=== PATIENT | female | born 1970 | race Two or more races ===

== ENCOUNTER 2020-05-25 13:00 | Outpatient (RCR) | payer OTHER, SELFPAY ==
--- NOTE | 2020-05-25 14:46 | MHC.PT.OD ---
[facility] [place] [facility] [place] [facility] [place] [facility] [address] Marcellus Mackenzie [address] [phone] F: [phone] F: [phone] F: [phone] F: [phone] Physical Therapy Daily Note Diagnosis: LEFT SHOULDER PAIN Date of Surgery: Date of Evaluation: 04/20/20 Treatments to Date: 8 Cancellations to Date: No Shows to Date: Authorized Visits: 12 Insurance End Date: Precautions/ Contraindications: Subjective: PATIENT REPORTS HAVING INCREASED PAIN TO LEFT SHOULDER AND POOR ABILITY TO SLEEP ON LEFT SIDE. PATIENT REPORTS PAIN HAS INCREASED AND SHE HAS BEEN HAVING MORE DIFFICULTY WITH OUTSTRETCHED UE PATTERNS. PATIENT REPORT SHOOTING AND BURNING PAIN TO LEFT UPPER TRAPEZIUS AND LEFT MEDIAL SCAPULA THAT HAS PROGRESSIVELY INCREASED. PATIENT REPORTS NOTICEABLE WEAKNESS TO LEFT UE. Pain Score: 8 Pain Location: LE SUPERIOR AND POSTERIOR SHOULDER GIRDLE Objective Flowsheet: Tests & Measures POSITIVE EMPTYY CAN TEST ON LEFT, PAINFUL ARC > 60 DEGREES, LEFT SCAPULAR WINGING TTP SUPRASPINATUS ON LEFT, MEDIAL SCAPULAR BORDER LEFT SHOULDER AROM: FLEXION 156 ABDUCTION 162, ER 56 IR 48 RIGHT WFL SHOULDER MMT: FLEXION LEFT: 4-/5 RIGHT : 4/5 ABDUCTION LEFT: 3+/5 RIGHT 4/5 ER LEFT: 3/5 RIGHT 4/5 IR LEFT 4/5 RIGHT 5/5 Assessment: PATIENT DOES PRESENT WITH ANTERIOR SHOULDER PAIN AND ANTERIOR INSTABILITY WITH AWAY FROM MIDLINE UE POSITION. PATIENT MAY BENEFIT FROM REFERRAL TO [facility] TO RULE OUT LABRAL PATHOLOGY AND RTC INJURY. PATIENT DISCHARGED DUE TO PLATEAU. PATIENT INDEPENDENT WITH HEP. PT Plan: DISCHARGE PATIENT AND REFER TO PHYSICIAN FOR ALTERNATIVE TX. Discharge Today? Yes Short Term Goals: 1. REDUCE PAIN AT WORST TO 5/10 (NOT MET) 2. PATIENT WILL BE INDEPENDENT WITH HEP (MET) 3. PATIENT WILL PRESENT WITH SAFE LIFTING AND CARRYING TECHNIQUES (MET) Prison Goals: 1. FULL AROM NOT LIMITED BY PAIN (NOT MET) 2. ABILITY TO SLEEP ON LEFT SHOULDER (NOT MET) 3. PATIENT WILL BE ABLE TO LIFT AND CARRY > 10 LBS WITHOUT PAIN (NOT MET) 4. INCREASE 1 MM GRADE TO SHOULDER GIRDLE TO ASSIST WITH ADL'S (NOT MET)
== END 2020-06-16 08:40 | disposition other institution (70) ==
LOC: HO.PTWFD 13:00
PROVIDERS: PCP Internal Medicine; Visit Provider Student in an Organized Health Care Education/Training Program
DX: M67.912 Unspecified disorder of synovium and tendon, left shoulder (principal)
CPT/HCPCS: 97110; 97140; 97164

== ENCOUNTER 2020-07-01 08:54 | Outpatient (REF) | payer OTHER, SELFPAY ==
[2020-07-02 02:28] LABS: CT PCR NOT DETECTED (Not Detect.); NG PCR NOT DETECTED (Not Detect.)
[2020-07-02 11:19] LABS: BV Int Neg Control Negative (Negative); BV Int Pos Control Positive (Positive)
== END 2020-07-01 08:55 | disposition home or self-care (01) ==
LOC: HO.LAB 08:54
PROVIDERS: Visit Provider Advanced Practice Midwife
DX: Z01.419 Encounter for gynecological examination (general) (routine) without abnormal findings (principal); N89.8 Other specified noninflammatory disorders of vagina; N39.3 Stress incontinence (female) (male)
CPT/HCPCS: 87480; 87491; 87510; 87591; 87660

== ENCOUNTER 2020-09-03 00:08 | Emergency (ER) | payer OTHER, SELFPAY ==
[2020-09-03 00:31] VITALS: BP 150/83; PULSE 80; RESP 18; TEMP 37.6; O2SAT 95; BMI 30.2
[2020-09-03 00:35] VITALS: TEMP 37.6; O2SAT 95
--- NOTE | 2020-09-03 01:06 | ED_ITS ---
HPI - URI/Sore Throat General Chief Complaint: Upper Respiratory Symptoms Stated Complaint: SORE THROAT Time Seen by Provider: 09/03/20 00:43 Source: patient Mode of arrival: ambulatory Limitations: no limitations History of Present Illness HPI Narrative: Patient comes emergency room complaining of a sore throat patient denies fever or chills. Patient also complaining of diffuse body aches. Patient took ibuprofen prior to arrival. Her has the same symptoms. Patient denies chest pain or shortness of breath, no coughing, no GI symptoms Related Data Home Medications Medication Instructions Recorded Confirmed gabapentin 400 mg capsule 400 mg PO TID 05/31/20 05/31/20 meloxicam 15 mg tablet 15 mg PO DAILY 05/31/20 05/31/20 omeprazole 40 mg capsule,delayed 40 mg PO DAILY 05/31/20 05/31/20 release propranolol 80 mg capsule,24 80 mg PO DAILY 05/31/20 05/31/20 hr,extended release Previous Rx's Medication Instructions Recorded atorvastatin 10 mg tablet 10 mg PO BEDTIME 90 Days #90 tab 05/31/20 metronidazole 0.75 % vaginal gel 1 appful VAGINAL BEDTIME 5 Days 07/04/20 #70 g tramadol 50 mg tablet 50 mg PO Q8H #90 tab 07/19/20 Allergies Allergy/AdvReac Type Severity Reaction Status Date / Time trazodone [TRAZODONE] Allergy Intermediate TACHYCARDIA Verified 07/01/20 09:07 Review of Systems Review of Systems: Constitutional : No Weight loss, No Fever, No Chills, No Night Sweats, complaining of fatigue and generalized malaise ENT/Mouth : No Hearing loss, No Ear Pain, No Nasal Congestion, No Sinus Pain, No Hoarseness, complaining of sore throat, No Rhinorrhea, No Swallowing Difficulty Eyes: No Eye Pain, No Swelling, No Redness, No Foreign Body, No Discharge, No Vision Changes Cardiovascular : No Chest Pain, No SOB, No Dyspnea on Exertion, No Orthopnea, No Edema, No Palpitations Respiratory : No Cough, No Sputum, No Wheezing, No Smoke Exposure, No Dyspnea Gastrointestinal : No Nausea, No Vomiting, No Diarrhea, No Constipation, No abdominal Pain, No Hematochezia, No Melena Genitourinary : no irregular bleeding, No Dysuria, No Urinary Frequency, No Hematuria, No Urinary Incontinence, No Urgency, No Flank Pain, No Urinary Flow Changes, No Hesitancy Musculoskeletal : No joint pain, complaining of Myalgias, No Joint Swelling Skin : No Skin Lesions, No rash Neuro : No Weakness, No Numbness, No Paresthesias, No Loss of Consciousness, No Dizziness, No Headache Psych : No Anxiety/Panic, No Depression, No SI/HI/AH/VH, No Social Issues, Heme/Lymph: No Bruising, No Bleeding,No Lymphadenopathy Endocrine : No Polyuria, No Polydipsia, No Temperature Intolerance [facility] Past Medical History Medical History Class 1 obesity due to excess calories without serious comorbidity with body mass index (BMI) of 30.0 to 30.9 in adult Fibromyalgia GERD (gastroesophageal reflux disease) Left shoulder pain Pure hypercholesterolemia Surgical History History of laparoscopic cholecystectomy Family History Family History Father No problems noted. Mother HX: breast cancer Hypertension Hypercholesterolemia Maternal Grandmother Hypertension Diabetes Social History Social History Alcohol intake: never Smoking Status: Never smoker Smoked in Last 30 Days: No Advance Directives: No Advance Directives Information Provided: No Gender identity: female Physical Exam Vital Signs: Vital Signs: Last Vital Signs Temp 99.7 F 09/03/20 00:35 Pulse 80 09/03/20 00:31 Resp 18 09/03/20 00:31 BP 150/83 H 09/03/20 00:31 Pulse Ox 95 09/03/20 00:35 Body Mass Index 30.2 Appearance: Alert. Oriented X3. No acute distress. Eyes: Pupils equal, round and reactive to light. ENT: Erythematous oropharynx with no exudates, no abscesses and tonsils Neck: Normal inspection. Neck supple. No lymph nodes noted. No crepitus CVS: Normal heart rate and rhythm. Pulses normal. Normal S1 and S2 Respiratory: No respiratory distress. Breath sounds normal. No Wheezing. No rales Abdomen: Soft and nontender. No rigidity. No distention. good BS x4 Skin: Skin warm and dry. Normal skin color. Normal skin turgor. Extremities: No lower extremity edema. No lower extremity edema. No Lacerations. No Rash Neuro: Oriented X 3. No motor deficit. No sensory deficit. Moving all extermities. No slurred speech. Course Course Course Narrative: Patient was tested for COVID-19/RSV/influenza, results pending. Patient's COVID-19 results are positive. Patient instructed to get her children tested as well. She will self isolate for 14 days. Patient's tested positive as well. Patient's oxygen saturation remains at 96% on room air and during/after walking as well. MDM - URI/Sore Throat Lab Data Labs: Lab Results 09/03/20 Range/Units 01:55 Coronavirus (PCR) POSITIVE A (Negative) Influenza Type A (PCR) NEGATIVE (Negative) Influenza Type B (PCR) NEGATIVE (Negative) RSV RNA Qual (PCR) NEGATIVE (Negative) Discharge Plan Discharge Clinical Impression: COVID-19 Patient Disposition: Home, Self-Care Instructions: COVID-19 (Coronavirus Disease 2019) (ED) Additional Instructions: Please stay at home self isolated for 14 days. Please give the children tested. Please follow-up with your primary care physician tomorrow. If you have any worsening or new symptoms, please return to the emergency room or call 911 Prescriptions: No Action metronidazole [Metrogel Vaginal] 0.75 % gel 1 appful vaginal BEDTIME 5 Days Qty: 70 RF: 0 tramadol 50 mg tablet 50 mg PO Q8H Qty: 90 RF: 5 gabapentin 400 mg capsule 400 mg PO TID RF: 0 meloxicam 15 mg tablet 15 mg PO DAILY RF: 0 omeprazole 40 mg capsule,delayed release(DR/EC) 40 mg PO DAILY RF: 0 propranolol 80 mg capsule,extended release 24 hr 80 mg PO DAILY RF: 0 atorvastatin 10 mg tablet 10 mg PO BEDTIME 90 Days Qty: 90 RF: 3 Stand Alone Forms: Work/School Release
[2020-09-03] MEDS: Acetaminophen 325 MG TABLET 650 MG PO (01:56)
[2020-09-03 02:49] LABS: Influenza A PCR NEGATIVE (Negative); Influenza B PCR NEGATIVE (Negative); Resp Syncy Virus RNA Qual PCR NEGATIVE (Negative)
[2020-09-03 02:52] LABS: SARS COV2 PCR INHOUSE POSITIVE (Negative)
[2020-09-03 03:05] VITALS: BP 141/91; PULSE 82; RESP 18; TEMP 37.1; O2SAT 99
== END 2020-09-03 03:06 | disposition home or self-care (01) ==
PROVIDERS: Emergency Provider Emergency Medicine
DX: U07.1 COVID-19 (principal); J02.9 Acute pharyngitis, unspecified; Z79.899 Other long term (current) drug therapy
CPT/HCPCS: 0241U; 36415; 99283; 99285

== ENCOUNTER 2020-09-21 08:42 | Outpatient (REF) | payer OTHER, SELFPAY | END 2020-09-21 08:43 | disposition home or self-care (01) | LOC: HO.HOSX 08:42 | PROVIDERS: Visit Provider Physician Assistant | DX: Z13.89 Encounter for screening for other disorder (principal) ==

== ENCOUNTER 2020-09-21 09:54 | Outpatient (REF) | payer OTHER, SELFPAY | END 2020-09-21 09:55 | disposition home or self-care (01) | LOC: HO.LAB 09:54 | PROVIDERS: Visit Provider Internal Medicine | DX: Z20.822 Contact with and (suspected) exposure to COVID-19 (principal) | CPT/HCPCS: 36415; C9803; U0003; U0005 ==

== ENCOUNTER 2020-10-07 12:08 | Outpatient (REF) | payer OTHER, SELFPAY ==
--- NOTE | ~2020-10-07 | XR_ITS ---
EXAMINATION: XR SHOULDER, LEFT CLINICAL INFORMATION: Left shoulder pain COMPARISON: Left shoulder radiographs 12/16/2015 TECHNIQUE: Left shoulder is imaged in 4 views. FINDINGS: There is no fracture, dislocation, destructive process. No arthropathy. No visible rotator cuff calcifications. The acromioclavicular alignment is normal. Left lung apex shows no pneumothorax or pleural reaction. XR/XR shoulder LT min 2V IMPRESSION: Normal left shoulder.
== END 2020-10-07 12:09 | disposition home or self-care (01) ==
LOC: HO.XRAY 12:08
PROVIDERS: Visit Provider Physician Assistant
DX: M25.512 Pain in left shoulder (principal)
CPT/HCPCS: 73030; 99202

== ENCOUNTER → 2020-11-30 15:03 | Outpatient (BNVA) | payer OTHER, SELFPAY | PROVIDERS: PCP Internal Medicine; Visit Provider Student in an Organized Health Care Education/Training Program | DX: M25.512 Pain in left shoulder (principal); M25.561 Pain in right knee | CPT/HCPCS: 99212 ==

== ENCOUNTER 2021-01-13 15:47 | Outpatient (REF) | payer OTHER, SELFPAY ==
--- NOTE | ~2021-01-13 | MM_ITS ---
EXAMINATION: MM SCREENING DIGITAL BREAST TOMOSYNTHESIS, BILATERAL CLINICAL INFORMATION: Screening. Asymptomatic. The lifetime risk of breast cancer based on the Tyrer-Cuzick Model is 13%. COMPARISON: Mammography: 11/17/2019, 05/13/2019, 05/05/2019, 04/22/2018 TECHNIQUE: Digital breast tomosynthesis is performed in both the craniocaudal and mediolateral oblique views along with computer-aided detection (CAD). Synthesized 2D images are generated from the tomosynthesis. Additional left MLO view is provided. FINDINGS: There are scattered areas of fibroglandular density (ACR BI-RADS breast composition Category b). There are no significant masses, abnormal calcifications, or other abnormalities. Parenchymal pattern is similar to prior studies. MM/MM tomosynthesis screening BI IMPRESSION: No mammographic evidence of malignancy. ASSESSMENT: BI-RADS 1: Negative RECOMMENDATION: Routine annual mammography screening. This patient's information was entered into a reminder system with a target due date for their next mammogram.
== END 2021-01-13 15:48 | disposition home or self-care (01) ==
LOC: HO.MAMMO 15:47
PROVIDERS: PCP Internal Medicine; Visit Provider Internal Medicine
DX: Z12.31 Encounter for screening mammogram for malignant neoplasm of breast (principal)
CPT/HCPCS: 77063; 77067

== ENCOUNTER → 2021-01-19 15:36 | Outpatient (BNVA) | payer OTHER, SELFPAY | PROVIDERS: PCP Internal Medicine; Visit Provider Student in an Organized Health Care Education/Training Program | DX: M25.512 Pain in left shoulder (principal) | CPT/HCPCS: 20610; 99212 ==

== ENCOUNTER 2021-02-02 09:55 | Outpatient (REF) | payer OTHER, SELFPAY ==
[2021-02-02 10:38] LABS: Hemoglobin 13.1 g/dl (12.0-16.0); Mean Corpuscular Hemoglobin 30.7 pg (27.0-33.0); Mean Platelet Volume 9.7 fL (9.4-12.3); Platelet Count 325 X10*3/uL (160-400); Red Blood Count 4.27 X10*6/uL (4.20-5.50); Red Cell Distribution Width 12.1 % (11.0-16.0); White Blood Count 7.4 X10*3/uL (4.8-10.8)
[2021-02-02 11:05] LABS: Alanine Aminotransferase 17 U/L (0-31); Albumin Level 4.1 g/dL (3.5-5.0); Alkaline Phosphatase 82 U/L (39-117); Anion Gap 12 (12-20); Aspartate Amino Transferase 17 U/L (5-31); Bilirubin Total 0.6 mg/dL (0.0-1.0); Blood Urea Nitrogen 12 mg/dL (9-16); Calcium 9.4 mg/dL (8.4-10.2); Carbon Dioxide 28 mmol/L (22-29); Chloride 107 mmol/L (96-108); Cholesterol 191 mg/dL; Estimated Glomerular Filt Rate > 60; Glucose Fasting 112 mg/dL (60-99); HDL Cholesterol 65 mg/dL; LDL Cholesterol Calculated 111 mg/dl; Potassium 4.9 mmol/L (3.3-5.1); Sodium 142 mmol/L (135-145); Triglycerides 79 mg/dL
== END 2021-02-02 09:56 | disposition home or self-care (01) ==
LOC: HO.LAB 09:55
PROVIDERS: PCP Internal Medicine; Visit Provider Internal Medicine
DX: E78.00 Pure hypercholesterolemia, unspecified (principal); E78.5 Hyperlipidemia, unspecified; K21.9 Gastro-esophageal reflux disease without esophagitis
CPT/HCPCS: 36415; 80053; 80061; 85027

== ENCOUNTER 2021-02-07 13:00 | Outpatient (RCR) | payer OTHER, SELFPAY | END 2021-06-30 12:46 | disposition home or self-care (01) | LOC: HO.PTWFD 13:00 | PROVIDERS: PCP Internal Medicine; Visit Provider Student in an Organized Health Care Education/Training Program | DX: M25.512 Pain in left shoulder (principal) | CPT/HCPCS: 97110; 97140; 97161 ==

== ENCOUNTER 2021-02-10 08:26 | Outpatient (REF) | payer OTHER, SELFPAY ==
[2021-02-10 10:40] LABS: Alanine Aminotransferase 15 U/L (0-31); Albumin Level 4.2 g/dL (3.5-5.0); Alkaline Phosphatase 75 U/L (39-117); Anion Gap 12 (12-20); Aspartate Amino Transferase 18 U/L (5-31); Bilirubin Total 0.5 mg/dL (0.0-1.0); Blood Urea Nitrogen 14 mg/dL (9-16); Calcium 9.4 mg/dL (8.4-10.2); Carbon Dioxide 27 mmol/L (22-29); Chloride 107 mmol/L (96-108); Cholesterol 192 mg/dL; Estimated Glomerular Filt Rate > 60; Glucose Fasting 104 mg/dL (60-99); HDL Cholesterol 58 mg/dL; LDL Cholesterol Calculated 117 mg/dl; Potassium 4.6 mmol/L (3.3-5.1); Sodium 141 mmol/L (135-145); Total Protein 7.3 g/dL (6.5-8.0); Triglycerides 89 mg/dL
[2021-02-10 11:06] LABS: Thyroid Stimulating Hormone 0.56 uIU/mL (0.32-4.0)
[2021-02-10 15:15] LABS: CT PCR NOT DETECTED (Not Detect.); NG PCR NOT DETECTED (Not Detect.)
[2021-02-11 10:07] LABS: Follicle Stimulating Hormone 35.2 mIU/mL
[2021-02-11 11:16] LABS: BV Int Neg Control Negative (Negative); BV Int Pos Control Positive (Positive)
== END 2021-02-10 08:27 | disposition home or self-care (01) ==
LOC: HO.LAB 08:26
PROVIDERS: PCP Internal Medicine; Visit Provider Advanced Practice Midwife
DX: Z01.411 Encounter for gynecological examination (general) (routine) with abnormal findings (principal); Z11.51 Encounter for screening for human papillomavirus (HPV); N92.6 Irregular menstruation, unspecified; E78.00 Pure hypercholesterolemia, unspecified; Z20.2 Contact with and (suspected) exposure to infections with a predominantly sexual mode of transmission
CPT/HCPCS: 36415; 80053; 80061; 83001; 84443; 87480; 87491; 87510; 87591; 87660; 99212

== ENCOUNTER 2021-03-06 11:26 | Outpatient (REF) | payer OTHER, SELFPAY ==
--- NOTE | ~2021-03-06 | US_ITS ---
EXAMINATION: US PELVIS ULTRASOUND CLINICAL INFORMATION: N92.6 - Irregular menstruation, unspecified. Age 50. Bleeding for 11 days in January. COMPARISON: None TECHNIQUE: Ultrasound of the pelvis is performed using both transabdominal and transvaginal transducers along with Doppler. Transvaginal imaging is performed due to inadequate visualization transabdominally. FINDINGS: Uterus: The uterus is anteverted and measures 8.0 x 3.1 x 4.8 cm. Volume 62 mL. The double wall endometrial thickness is 5 mm. The uterus is smooth in contour. There are a few scattered specular echoes in the inner myometrium under 5 mm which may suggest small partially calcified fibroids. Otherwise, there is no visible measurable fibroid. No myometrial cysts seen. Small nabothian cysts in the cervix. Adnexa: Both ovaries are visualized. There is normal color flow to the adnexa. There is no ovarian torsion. There is no pelvic ascites or fluid collection. Right ovary measures 2.1 x 1.6 x 1.8 cm. Volume 3.2 mL. Incidental dominant follicle 1.8 x 0.9 cm. Small specular echoes/calcification within ovary. Left ovary measures 2.2 x 1.1 x 2.0 cm. Volume 2.5 mL US/US pelvic and transvaginal IMPRESSION: 1. Uterus: Normal in size. Endometrial double wall thickness 5 mm. A few small specular echoes in the myometrium suggesting small calcified fibroids. 2. Adnexa: No mass or ascites.
== END 2021-03-06 11:27 | disposition home or self-care (01) ==
LOC: HO.US 11:26
PROVIDERS: Visit Provider Advanced Practice Midwife
DX: N92.6 Irregular menstruation, unspecified (principal)
CPT/HCPCS: 76830; 76856

== ENCOUNTER → 2021-03-07 08:57 | Outpatient (BNVA) | payer OTHER, SELFPAY | PROVIDERS: PCP Internal Medicine; Visit Provider Advanced Practice Midwife | DX: N92.6 Irregular menstruation, unspecified (principal); E66.01 Morbid (severe) obesity due to excess calories; K21.9 Gastro-esophageal reflux disease without esophagitis; E78.00 Pure hypercholesterolemia, unspecified; M79.7 Fibromyalgia; Z68.30 Body mass index [BMI] 30.0-30.9, adult; Z98.51 Tubal ligation status; Z88.8 Allergy status to other drugs, medicaments and biological substances; Z32.02 Encounter for pregnancy test, result negative | CPT/HCPCS: 81025; 99212 ==

== ENCOUNTER 2021-03-20 14:21 | Outpatient (REF) | payer OTHER, SELFPAY | END 2021-03-20 14:22 | disposition home or self-care (01) | LOC: HO.LAB 14:21 | PROVIDERS: PCP Internal Medicine; Visit Provider Advanced Practice Midwife | DX: N92.6 Irregular menstruation, unspecified (principal) | CPT/HCPCS: 58100; 88305; 99212 ==

== ENCOUNTER → 2021-03-23 14:45 | Outpatient (BNVA) | payer OTHER, SELFPAY | PROVIDERS: Visit Provider Advanced Practice Midwife ==

== ENCOUNTER → 2021-05-31 16:11 | Outpatient (BNVA) | payer OTHER, SELFPAY | PROVIDERS: Visit Provider Anesthesiology | DX: M47.812 Spondylosis without myelopathy or radiculopathy, cervical region (principal); M54.2 Cervicalgia | CPT/HCPCS: 99212 ==

== ENCOUNTER 2021-06-07 15:48 | Outpatient (REF) | payer OTHER, SELFPAY ==
--- NOTE | ~2021-06-07 | MR_ITS ---
MR CERVICAL SPINE WITHOUT CONTRAST CLINICAL INFORMATION: Cervicalgia. COMPARISON: None available. TECHNIQUE: MRI of the cervical spine was obtained using routine sequences without contrast. FINDINGS: Straightening of the cervical lordosis. Mild anterior subluxation of C5 on C6. Vertebral body heights are maintained. There is no bone marrow edema. There are no acute fractures. Craniocervical junction is unremarkable. Cervical arterial flow voids are maintained. No cord signal changes. No significant extraspinal soft tissue findings. Retropharyngeal course of the right cervical internal carotid artery. C2-C3: Shallow central disc protrusion mildly indents the ventral thecal sac. Bilateral facet arthropathy. No significant foraminal stenosis. C3-C4: Slight annular disc bulge. Advanced uncovertebral joint hypertrophy and hypertrophic facet arthropathy result in severe left-sided foraminal stenosis. C4-C5: Disc osteophyte without central canal stenosis. Left-sided facet arthropathy. No significant foraminal stenosis. C5-C6: Mild anterior subluxation. Bilateral facet arthropathy. Uncovertebral joint spurring. Mild bilateral foraminal encroachment. C6-C7: Uncovertebral joint spurring and facet arthropathy result in moderate to severe right-sided foraminal stenosis. No central canal and no left foraminal stenosis. C7-T1: Uncovertebral joint spurring and facet arthropathy result in mild bilateral foraminal encroachment. MR/MR cervical spine wo con IMPRESSION: - Multilevel cervical spondylosis. Spondylitic changes result in severe left C3-C4 and moderate to severe right C6-C7 foraminal stenosis. There is no severe central canal stenosis within the cervical spine. - Retropharyngeal course of the right cervical internal carotid artery.
== END 2021-06-07 15:49 | disposition home or self-care (01) ==
LOC: HO.MRI 15:48
PROVIDERS: PCP Internal Medicine; Visit Provider Anesthesiology
DX: M54.2 Cervicalgia (principal); M47.812 Spondylosis without myelopathy or radiculopathy, cervical region
CPT/HCPCS: 72141

== ENCOUNTER → 2021-06-19 11:27 | Outpatient (BNVA) | payer OTHER, SELFPAY | PROVIDERS: PCP Internal Medicine; Visit Provider Anesthesiology | DX: M47.812 Spondylosis without myelopathy or radiculopathy, cervical region (principal); M54.12 Radiculopathy, cervical region; M50.30 Other cervical disc degeneration, unspecified cervical region; M79.7 Fibromyalgia; E78.00 Pure hypercholesterolemia, unspecified; E66.09 Other obesity due to excess calories; Z68.31 Body mass index [BMI] 31.0-31.9, adult; Z88.8 Allergy status to other drugs, medicaments and biological substances | CPT/HCPCS: 99212 ==

== ENCOUNTER 2021-08-10 09:52 | Outpatient (REF) | payer OTHER, SELFPAY ==
--- NOTE | ~2021-08-10 | XR_ITS ---
EXAMINATION: XR KNEE, RIGHT CLINICAL INFORMATION: Unilateral primary osteoarthritis, right knee. COMPARISON: None TECHNIQUE: AP and lateral views of the right knee. FINDINGS: Bones and soft tissues are normal. No fracture or joint effusion. Alignment is anatomic. Joint spaces are well maintained. No abnormal soft tissue calcification. XR/XR knee RT 2V IMPRESSION: Normal right knee.
--- NOTE | ~2021-08-10 | XR_ITS ---
EXAMINATION: XR ELBOW, RIGHT CLINICAL INFORMATION: Right elbow pain. COMPARISON: None TECHNIQUE: AP, lateral, and oblique views of the right elbow. FINDINGS: The bones and soft tissues are normal. No fracture or joint effusion. Alignment is anatomic. Joint spaces are maintained. XR/XR elbow RT min 3V IMPRESSION: Normal right elbow.
== END 2021-08-10 09:53 | disposition home or self-care (01) ==
LOC: HO.XRAY 09:52
PROVIDERS: PCP Internal Medicine; Visit Provider Internal Medicine
DX: M25.521 Pain in right elbow (principal); M17.11 Unilateral primary osteoarthritis, right knee
CPT/HCPCS: 73080; 73560

== ENCOUNTER → 2021-12-25 13:59 | Outpatient (BNVA) | payer OTHER, SELFPAY | PROVIDERS: PCP Internal Medicine; Visit Provider Nurse Practitioner Family | DX: M54.2 Cervicalgia (principal) | CPT/HCPCS: 99212 ==

== ENCOUNTER 2022-03-23 09:06 | Outpatient (REF) | payer OTHER, SELFPAY ==
[2022-03-23 09:43] LABS: MANUAL DIFF FLAG NO
[2022-03-23 10:29] LABS: Basophils Absolute Auto 0.1 X10*3/uL (0.0-0.2); Basophils Percent Auto 1.4 % (0-2); Eosinophils Absolute Auto 0.2 X10*3/uL (0.0-0.4); Eosinophils Percent Auto 2.8 % (0-4); Hematocrit 38.5 % (37.0-47.0); Hemoglobin 12.5 g/dl (12.0-16.0); Imm Gran Abs Auto 0.01 X10*3/uL (0.00-0.03); Imm Gran Pct Auto 0.1 % (0.0-0.4); Lymphocytes Absolute Auto 2.7 X10*3/uL (1.2-4.9); Lymphocytes Percent Auto 37.5 % (20-40); Mean Corpuscular HGB Conc 32.5 g/dl (31.0-35.0); Mean Corpuscular Hemoglobin 30.6 pg (27.0-33.0); Mean Corpuscular Volume 94.4 fL (80.0-98.0); Mean Platelet Volume 10.3 fL (9.4-12.3); Monocytes Absolute Auto 0.6 X10*3/uL (0.1-1.2); Monocytes Percent Auto 7.6 % (2-11); Neutrophils Absolute Auto 3.7 x10*3/uL (2.0-8.3); Neutrophils Percent Auto 50.6 % (45-73); Platelet Count 305 X10*3/uL (160-400); Red Blood Count 4.08 X10*6/uL (4.20-5.50); Red Cell Distribution Width 11.8 % (11.0-16.0); White Blood Count 7.2 X10*3/uL (4.8-10.8)
[2022-03-23 10:53] LABS: Alanine Aminotransferase 18 U/L (0-31); Albumin Level 4.2 g/dL (3.5-5.0); Alkaline Phosphatase 64 U/L (39-117); Anion Gap 15 (12-20); Aspartate Amino Transferase 19 U/L (5-31); Bilirubin Total 0.6 mg/dL (0.0-1.0); Blood Urea Nitrogen 14 mg/dL (9-16); Calcium 9.4 mg/dL (8.4-10.2); Carbon Dioxide 25 mmol/L (22-29); Chloride 106 mmol/L (96-108); Cholesterol 186 mg/dL; Estimated Glomerular Filt Rate > 60; Glucose Fasting 107 mg/dL (60-99); HDL Cholesterol 47 mg/dL; LDL Cholesterol Calculated 119 mg/dl; Potassium 4.5 mmol/L (3.3-5.1); Sodium 141 mmol/L (135-145); Total Protein 7.1 g/dL (6.5-8.0); Triglycerides 103 mg/dL
== END 2022-03-23 09:07 | disposition home or self-care (01) ==
LOC: HO.LAB 09:06
PROVIDERS: Absent Provider Internal Medicine; PCP Internal Medicine; Visit Provider Nurse Practitioner Family
DX: M79.18 Myalgia, other site (principal); E78.5 Hyperlipidemia, unspecified; Z79.899 Other long term (current) drug therapy
CPT/HCPCS: 36415; 80053; 80061; 85025

== ENCOUNTER 2022-03-28 08:44 | Outpatient (REF) | payer OTHER, SELFPAY ==
[2022-03-28 11:21] LABS: Alanine Aminotransferase 21 U/L (0-31); Albumin Level 4.4 g/dL (3.5-5.0); Alkaline Phosphatase 64 U/L (39-117); Anion Gap 17 (12-20); Aspartate Amino Transferase 18 U/L (5-31); Bilirubin Total 0.6 mg/dL (0.0-1.0); Blood Urea Nitrogen 10 mg/dL (9-16); Calcium 10.1 mg/dL (8.4-10.2); Carbon Dioxide 22 mmol/L (22-29); Chloride 106 mmol/L (96-108); Cholesterol 204 mg/dL; Estimated Glomerular Filt Rate > 60; Glucose Fasting 113 mg/dL (60-99); HDL Cholesterol 50 mg/dL; LDL Cholesterol Calculated 125 mg/dl; Potassium 4.1 mmol/L (3.3-5.1); Sodium 141 mmol/L (135-145); Total Protein 7.6 g/dL (6.5-8.0); Triglycerides 148 mg/dL
[2022-03-29 08:47] LABS: Prolactin 9.6 ng/mL
== END 2022-03-28 08:45 | disposition home or self-care (01) ==
LOC: HO.LAB 08:44
PROVIDERS: Absent Provider Nurse Practitioner Family; PCP Internal Medicine; Visit Provider Internal Medicine
DX: N64.52 Nipple discharge (principal); E78.00 Pure hypercholesterolemia, unspecified; E78.5 Hyperlipidemia, unspecified
CPT/HCPCS: 36415; 80053; 80061; 84146

== ENCOUNTER 2022-04-04 08:39 | Outpatient (REF) | payer OTHER, SELFPAY ==
--- NOTE | ~2022-04-04 | US_ITS ---
EXAMINATION: US DIAGNOSTIC ULTRASOUND BREAST, LEFT CLINICAL INFORMATION: Mastodynia. COMPARISON: Mammography of same day and studies dating back to October 15, 2014. TECHNIQUE: Ultrasound of the breast is performed with real-time cantrell scale imaging and color Doppler. FINDINGS: There is no focal suspicious finding. There is no solid mass, architectural abnormality, duct ectasia, or edema in the soft tissue planes. Results are discussed with the patient at time of visit. US/US breast LT limited IMPRESSION: No suspicious ultrasound findings in region of patient's pain. ASSESSMENT: BI-RADS 1: Negative RECOMMENDATION: Routine annual screening mammography. Clinical follow-up. This patient's information was entered into a reminder system with a target due date for their next mammogram.
--- NOTE | ~2022-04-04 | MM_ITS ---
EXAMINATION: MM DIAGNOSTIC DIGITAL BREAST TOMOSYNTHESIS, BILATERAL Bilateral targeted breast ultrasound. CLINICAL INFORMATION: Bilateral mastodynia The lifetime risk of breast cancer based on the Tyrer-Cuzick Model is 12.9%. COMPARISON: Mammography: January 13, 2021 and studies dating back to October 15, 2014 TECHNIQUE: Digital breast tomosynthesis is performed in both the craniocaudal and mediolateral oblique views along with computer-aided detection (CAD). Synthesized 2D images are generated from the tomosynthesis. Bilateral targeted breast ultrasound. FINDINGS: There are scattered areas of fibroglandular density (ACR BI-RADS breast composition Category b). There are no significant masses, abnormal calcifications, or other abnormalities. Bilateral breast ultrasound did not demonstrate any abnormal cystic or solid masses. No region of abnormal distal sound shadowing. No edematous change within the parenchyma is noted. Results are discussed with the patient at time of visit. MM/MM tomosynthesis diagnostic BI IMPRESSION: There are no significant changes from prior study. No ultrasound abnormalities to suggest malignancy seen within the right and left breast. ASSESSMENT: BI-RADS 1: Negative RECOMMENDATION: Routine mammography. Clinical follow-up. This patient's information was entered into a reminder system with a target due date for their next mammogram.
--- NOTE | ~2022-04-04 | US_ITS ---
EXAMINATION: US DIAGNOSTIC ULTRASOUND BREAST, RIGHT CLINICAL INFORMATION: Mastodynia. COMPARISON: Mammography of same day and studies dating back to October 15, 2014. TECHNIQUE: Ultrasound of the breast is performed with real-time cantrell scale imaging and color Doppler. FINDINGS: There is no focal suspicious finding. There is no solid mass, architectural abnormality, duct ectasia, or edema in the soft tissue planes. Results are discussed with the patient at time of visit. US/US breast RT limited IMPRESSION: No specific ultrasound findings to suggest malignancy. ASSESSMENT: BI-RADS 1: Negative RECOMMENDATION: Routine annual mammography screening. Clinical follow-up. This patient's information was entered into a reminder system with a target due date for their next mammogram.
== END 2022-04-04 08:40 | disposition home or self-care (01) ==
LOC: HO.MAMMO 08:39
PROVIDERS: Visit Provider Internal Medicine
DX: N64.4 Mastodynia (principal); N64.52 Nipple discharge
CPT/HCPCS: 76642; 77062; 77066

== ENCOUNTER → 2022-05-22 09:04 | Outpatient (BNVA) | payer OTHER, SELFPAY | PROVIDERS: PCP Internal Medicine; Visit Provider Nurse Practitioner | DX: Z01.818 Encounter for other preprocedural examination (principal) | CPT/HCPCS: 99202; 99212 ==

== ENCOUNTER → 2022-07-27 13:00 | Outpatient (BNVA) | payer OTHER, SELFPAY | PROVIDERS: PCP Internal Medicine; Visit Provider Nurse Practitioner Family | DX: M54.2 Cervicalgia (principal) | CPT/HCPCS: 99212 ==

== ENCOUNTER 2022-09-28 08:58 | Outpatient (REF) | payer OTHER, SELFPAY ==
--- NOTE | ~2022-09-28 | XR_ITS ---
EXAMINATION: XR hand RT min 3V, XR hand LT min 3V CLINICAL INFORMATION: Reason for Exam M79.641 - Pain in right hand COMPARISON: 04/29/2020 TECHNIQUE: AP, lateral, and oblique views of the bilateral hands XR/XR hand RT min 3V FINDINGS/IMPRESSION: * No acute fracture or dislocation. * Joint spaces are maintained without significant degenerative change. * No soft tissue abnormality.
--- NOTE | ~2022-09-28 | XR_ITS ---
EXAMINATION: XR hand RT min 3V, XR hand LT min 3V CLINICAL INFORMATION: Reason for Exam M79.641 - Pain in right hand COMPARISON: 04/29/2020 TECHNIQUE: AP, lateral, and oblique views of the bilateral hands XR/XR hand LT min 3V FINDINGS/IMPRESSION: * No acute fracture or dislocation. * Joint spaces are maintained without significant degenerative change. * No soft tissue abnormality.
--- NOTE | ~2022-09-28 | XR_ITS ---
EXAMINATION: XR SACROILIAC JOINTS CLINICAL INFORMATION: Pain COMPARISON: None TECHNIQUE: 3 views of the sacroiliac joints FINDINGS: Bones and soft tissues are normal. No fracture. Alignment is anatomic. Sacroiliac joint spaces are well-maintained without erosions or surrounding sclerosis. XR/XR sacroiliac joint min 3V IMPRESSION: Normal sacroiliac joints.
[2022-09-28 10:08] LABS: Amphetamine Screen Urine Not Detected (Not Detect); Barbiturates, Urine Not Detected (Not Detect); Benzodiazepines Screen Urine Not Detected (Not Detect); Cannabinoid Screen Urine Not Detected (Not Detect); Cocaine Screen Urine Not Detected (Not Detect); Fentanyl, urine Not Detected (Not Detect); Opiate Screen Urine Not Detected (Not Detect); Phencyclidine Screen Urine Not Detected (Not Detect)
== END 2022-09-28 08:59 | disposition home or self-care (01) ==
LOC: HO.XRAY 08:58
PROVIDERS: PCP Internal Medicine; Visit Provider Nurse Practitioner Family
DX: M79.641 Pain in right hand (principal); M79.642 Pain in left hand; M79.18 Myalgia, other site; Z79.899 Other long term (current) drug therapy
CPT/HCPCS: 72202; 73130; 80307; 80373

== ENCOUNTER 2022-10-19 11:27 | Day surgery (SDC) | payer OTHER, SELFPAY ==
[2022-10-19 12:02] VITALS: BMI 32.1
[2022-10-19 12:22] VITALS: BP 139/85; PULSE 76; RESP 15; TEMP 36.7; O2SAT 97
--- NOTE | 2022-10-19 13:04 | MHC.SHP ---
Pre-Procedural Eval Section A Date of Service: 10/19/22 The patient is an INPATIENT: No The History & Physical has been completed within 30 days and I have reviewed it.: No Section B Chief Complaint: Colon cancer screening Details of Present Illness: Colon cancer screening Relevant Family History (Specify if Yes): No Relevant Social History: None Present Medications: see Short Stay Collaborative assessment Medical History: Significant History (Hypertension High cholesterol Fibromyalgia syndrome Obesity Female stress incontinence Cervical spondylosis Osteoarthritis of the knees Major depression disorder Migraines) History of Previous Operations: Relevant previous surgery/procedure and date(s) (H/O laminectomy History of laparoscopic cholecystectomy Hx of tubal ligation) Allergies: Allergies Allergy/AdvReac Type Severity Reaction Status Date / Time trazodone [TRAZODONE] Allergy Intermediate TACHYCARDIA Verified 10/19/22 11:58 Review of Systems Sugical H&P ROS: Negative: Constitution, Cardiovascular, Respiratory and Gastrointestinal Exam Surgical H&P Exam: Normal: Heart, Normal: Lungs, Normal: Extremities and Normal: Abdomen Plan Diagnosis/Plan: Unchanged I have reviewed the history and physical and performed a pertinent physical examination on my patient. No changes have occurred unless specified. Time Spent With Patient Time: Total time managing care of this patient today ____ minutes.
[2022-10-19] MEDS: Lactated Ringers 1,000 ML 50 ML IVCONT (13:13)
--- NOTE | 2022-10-19 13:46 | P.CONAN_ITS ---
HPI - Anesthesia Eval Consult details Narrative: [facility] Active Problems Active Problems: All Active Problems (Updated 10/19/22 @ 11:57 by Dodie Vargas, RN) Well woman exam with routine gynecological exam (Acute) Stress incontinence, female (Acute Unknown) Vaginal discharge (Acute) COVID-19 (Acute) Left shoulder pain (Acute) Myofascial pain (Acute) Right knee pain (Acute) Irregular bleeding (Acute) Breast discharge (Acute) Breast pain (Acute) Mild recurrent major depression (Acute) Physical exam (Acute) Left foot pain (Acute) Medication monitoring encounter (Acute) Pre-op examination (Acute) Physical exam (Acute) Osteoarthritis of right knee (Acute) Right elbow pain (Acute) Cervical radiculopathy (Acute) Degeneration, intervertebral disc, cervical (Acute) Cervical spondylosis (Acute) Cervicalgia (Acute) Migraines (Acute) Class 1 obesity due to excess calories without serious comorbidity with body mass index (BMI) of 30.0 to 30.9 in adult (Acute) Left shoulder pain (Acute) Pure hypercholesterolemia (Acute) Fibromyalgia (Acute) GERD (gastroesophageal reflux disease) (Acute) Past Medical History Medical History (Updated 10/19/22 @ 11:57 by Dodie Vargas, RN) Cervical radiculopathy Cervical spondylosis Cervicalgia Class 1 obesity due to excess calories without serious comorbidity with body mass index (BMI) of 30.0 to 30.9 in adult Degeneration, intervertebral disc, cervical Fibromyalgia GERD (gastroesophageal reflux disease) Left shoulder pain Migraines Osteoarthritis of right knee Physical exam Pre-diabetes Pre-op examination Pure hypercholesterolemia Right elbow pain Family History Family History Father No problems noted. Mother HX: breast cancer Hypertension Hypercholesterolemia Maternal Grandmother Hypertension Diabetes Family/Other HX: breast cancer Family history of problems with anesthesia: No Surgical History Surgical History H/O laminectomy History of laparoscopic cholecystectomy Hx of tubal ligation History of Problems with Anesthesia: No Social History Social History Housing: Apartment Alcohol intake: never Patient Tobacco Use Status: Never used Tobacco e-Cigarette/Vaping Use: Never Used Second Hand Smoke Exposure: No Use of substances other than those prescribed or required for medical reasons: No Are you DNR?: No Advance Directives: No Advance Directives Information Provided: Yes service: No Current occupational status: employed Current occupational exposures/hazards: No Gender identity: Female Cognitive needs: No Hearing needs: No Vision needs: No Meds Allergies Allergy/AdvReac Type Severity Reaction Status Date / Time trazodone [TRAZODONE] Allergy Intermediate TACHYCARDIA Verified 10/19/22 11:58 Active Medications: Current Medications Lactated Ringer's (Lr) 1,000 mls @ 50 mls/hr IVCONT .Q20H REYNALDO Last Admin: 10/19/22 13:13 Dose: 50 mls/hr Home Medications Medication Instructions Recorded Confirmed Last Taken Type amitriptyline 25 mg tablet 25 mg PO BEDTIME 05/22/22 10/19/22 Unknown History Exam Exam Date and Time: October 19, 2022 1346 Height,Weight and Vital Signs: Height 5 ft 1 in Weight 77.111 kg Last Vital Signs Temp 98.0 F 10/19/22 12:22 Pulse 76 10/19/22 12:22 Resp 15 10/19/22 12:22 BP 139/85 10/19/22 12:22 Pulse Ox 97 10/19/22 12:22 O2 Del Method 10/19/22 12:22 Airway Mallampati Class: II TM Dist: >3cm Neck ROM: Full Heart: rr Lungs: cta Assessment and Plan Final Anesthetic Review Family History of Problems with Anesthesia: No History of Problems with Anesthesia: No NPO: Yes ASA Class: II Final Preanesthetic Review: No Changes in Pt Med Stat, Meds/Allgs Chart Reviewed, Consent Obtained/Reviewed and Anes Risks/Benef Reviewed Patient Risk: Low Anesthetic Plan Anesthetic Plan: MAC: Disposition: Standard PACU
--- NOTE | 2022-10-19 14:02 | P.OP_ITS ---
Operative Note Operative Note Date of Service: 10/19/22 Narrative: Pre-op diagnosis: Colon cancer screening Post-op diagnosis:?other (MELANOSIS COLI, DIVERTICULOSIS, HEMORRHOIDS) Surgeon: Anisha Ornelas MD Anesthesia:?MAC COLONOSCOPY TILL CECUM WITH BIOPSIES Consent: Indications for the procedure and potential complications of bleeding, perforation, reaction to medications and missed diagnosis were discussed with the patient and informed consent was obtained. Instrument: Olympus PCF H 190 L variable stiffness pediatric colonoscope Monitoring: Vital signs and clinical assessment, intermittent blood pressure monitoring, continuous EKG monitoring, Pulse oximetry and Carbon Dioxide monitoring were done throughout the procedure. Colon withdrawl time was 15 minutes. Procedure: The patient was placed in the left lateral decubitis position and pre-procedure medications were administered. After a digital rectal examination of the ano-rectum, the video colonoscope was inserted into the rectum and advanced through the colon to the cecum. The colonoscope was slowly withdrawn in a retrograde panoramic fashion and the colon mucosa was carefully examined including a retroflexed view of the rectum. Findings and interventions are described below. Procedure Difficulty: Colon was long and tortuous and there was some loop formation Findings: Terminal Ileum: Not evaluated Cecum: Mild melanosis coli throughout the colon Ascending Colon: Mild melanosis coli throughout the colon - biopsies were obtained from the right colon Transverse Colon: Mild melanosis coli throughout the colon Descending Colon: Mild melanosis coli throughout the colon and moderate diverticulosis Sigmoid Colon: Mild melanosis coli throughout the colon and moderate diverticulosis Rectum: Normal Ano-rectum: Moderate internal hemorrhoids Colon preparation: Good after copious irrigation (pt admitted to eating a salad at 4 pm yesterday) Impression and Post Procedure Diagnosis: Colonoscopy Findings: No polyps were detected Mild melanosis coli throughout the colon - biopsies were obtained from the right colon Moderate diverticulosis seen in the left colon Moderate hemorrhoids on retroflexed exam. Plan: Await pathology results Patient has an appointment on 11/02/22 in the [facility] with Rosemary Alberto NP. Repeat Colonoscopy in 10 years. (Adult colonoscope for future colonscopies) Above findings were reviewed with the patient and Melanosis Coli and dive rticulosis handouts were given in the discharge area
--- NOTE | 2022-10-19 14:02 | P.BOP_ITS ---
Brief Operative Note Date of Service: 10/19/22 Pre-op diagnosis: Colon cancer screening Post-op diagnosis: other (MELANOSIS COLI, DIVERTICULOSIS, HEMORRHOIDS) Procedure: COLONOSCOPY TILL CECUM WITH BIOPSIES Surgeon: Anisha Ornelas MD Anesthesia: MAC Was an [employer] Work Supervisor used for this Procedure?: Yes [employer] Work Supervisor: Cate Turner Estimated blood loss (mL): 0 Pathology: other (A. right colon bxs, R/O melanosis coli) Condition: stable Disposition: PACU
[2022-10-19 14:42] VITALS: BP 124/69; PULSE 84; RESP 16; TEMP 36.4; O2SAT 96
[2022-10-19 14:57] VITALS: BP 133/77; PULSE 72; RESP 16; TEMP 36.6; O2SAT 99
== END 2022-10-19 15:26 | disposition home or self-care (01) ==
PROVIDERS: PCP Internal Medicine; Visit Provider Internal Medicine Gastroenterology
PROC: 0DJD8ZZ Inspection of Lower Intestinal Tract, Via Natural or Artificial Opening Endoscopic (ICD-10-PCS; CPT 45378; principal; 2022-10-19 12:40)
DX: Z12.11 Encounter for screening for malignant neoplasm of colon (principal); K63.89 Other specified diseases of intestine; K57.30 Diverticulosis of large intestine without perforation or abscess without bleeding; K64.8 Other hemorrhoids; I10 Essential (primary) hypertension; E78.00 Pure hypercholesterolemia, unspecified; M79.7 Fibromyalgia; F33.0 Major depressive disorder, recurrent, mild; G43.909 Migraine, unspecified, not intractable, without status migrainosus; E66.9 Obesity, unspecified; Z68.33 Body mass index [BMI] 33.0-33.9, adult; Z79.899 Other long term (current) drug therapy; Z88.8 Allergy status to other drugs, medicaments and biological substances; Z90.49 Acquired absence of other specified parts of digestive tract
CPT/HCPCS: 45380; 88305

== ENCOUNTER → 2022-11-02 09:55 | Outpatient (BNVA) | payer OTHER, SELFPAY | PROVIDERS: PCP Internal Medicine; Visit Provider Nurse Practitioner | DX: K59.00 Constipation, unspecified (principal); K64.9 Unspecified hemorrhoids | CPT/HCPCS: 99212 ==

== ENCOUNTER 2022-11-28 09:23 | Outpatient (REF) | payer OTHER, SELFPAY ==
[2022-11-28 10:35] LABS: Amphetamine Screen Urine Not Detected (Not Detect); Barbiturates, Urine Not Detected (Not Detect); Benzodiazepines Screen Urine Not Detected (Not Detect); Cannabinoid Screen Urine Not Detected (Not Detect); Cocaine Screen Urine Not Detected (Not Detect); Fentanyl, urine Not Detected (Not Detect); Opiate Screen Urine Not Detected (Not Detect); Phencyclidine Screen Urine Not Detected (Not Detect)
[2022-11-28 10:57] LABS: Alanine Aminotransferase 16 U/L (0-31); Albumin Level 4.2 g/dL (3.5-5.0); Alkaline Phosphatase 81 U/L (39-117); Anion Gap 12 (12-20); Aspartate Amino Transferase 16 U/L (5-31); Bilirubin Total 0.9 mg/dL (0.0-1.0); Blood Urea Nitrogen 11 mg/dL (9-16); Calcium 10.1 mg/dL (8.4-10.2); Carbon Dioxide 27 mmol/L (22-29); Chloride 107 mmol/L (96-108); Cholesterol 189 mg/dL; Estimated Glomerular Filt Rate > 60; Glucose Random 96 mg/dL (60-115); HDL Cholesterol 49 mg/dL; LDL Cholesterol Calculated 120 mg/dl; Potassium 5.2 mmol/L (3.3-5.1); Sodium 141 mmol/L (135-145); Total Protein 7.2 g/dL (6.5-8.0); Triglycerides 103 mg/dL
[2022-11-28 10:58] LABS: Erythrocyte Sedimentation Rate 16 MM/HR (0-20)
[2022-12-04 22:54] LABS: HLA B27 Negative (Negative)
== END 2022-11-28 09:24 | disposition home or self-care (01) ==
LOC: HO.LAB 09:23
PROVIDERS: Absent Provider Nurse Practitioner Family; PCP Internal Medicine; Visit Provider Internal Medicine
DX: Z00.00 Encounter for general adult medical examination without abnormal findings (principal); E78.5 Hyperlipidemia, unspecified; M25.50 Pain in unspecified joint; M54.9 Dorsalgia, unspecified; Z51.81 Encounter for therapeutic drug level monitoring
CPT/HCPCS: 36415; 80053; 80061; 80307; 80373; 85652; 86140; 86812

== ENCOUNTER 2022-12-03 10:58 | Outpatient (REF) | payer OTHER, SELFPAY ==
[2022-12-03 12:02] LABS: Potassium 4.7 mmol/L (3.3-5.1)
== END 2022-12-03 10:59 | disposition home or self-care (01) ==
LOC: HO.LAB 10:58
PROVIDERS: PCP Internal Medicine; Visit Provider Internal Medicine
DX: E87.5 Hyperkalemia (principal)
CPT/HCPCS: 36415; 84132

== ENCOUNTER → 2022-12-18 15:49 | Outpatient (BNVA) | payer OTHER, SELFPAY | PROVIDERS: PCP Internal Medicine; Visit Provider Nurse Practitioner Family | DX: R20.0 Anesthesia of skin (principal); R20.2 Paresthesia of skin; M79.7 Fibromyalgia; M47.22 Other spondylosis with radiculopathy, cervical region; M50.10 Cervical disc disorder with radiculopathy, unspecified cervical region | CPT/HCPCS: 99212 ==

== ENCOUNTER 2023-01-18 09:41 | Outpatient (REF) | payer OTHER, SELFPAY ==
[2023-01-21 12:43] LABS: TS Negative Control Passed; TS Panel A 1; TS Panel B 1; TS Positive Control Passed; TSpotTB Negative (Negative)
== END 2023-01-18 09:42 | disposition home or self-care (01) ==
LOC: HO.LAB 09:41
PROVIDERS: PCP Internal Medicine; Visit Provider Internal Medicine
DX: Z11.1 Encounter for screening for respiratory tuberculosis (principal)
CPT/HCPCS: 36415; 86481

== ENCOUNTER 2023-02-21 09:54 | Outpatient (REF) | payer OTHER, SELFPAY | END 2023-02-21 09:55 | disposition home or self-care (01) | LOC: HO.NEURO 09:54 | PROVIDERS: PCP Internal Medicine; Visit Provider Nurse Practitioner Family | DX: R20.0 Anesthesia of skin (principal); R20.2 Paresthesia of skin | CPT/HCPCS: 95886; 95911 ==

== ENCOUNTER 2023-05-08 09:07 | Outpatient (REF) | payer OTHER, SELFPAY ==
[2023-05-08 10:43] LABS: Appearance Urine Clear; Color Urine Yellow; Glucose Urine UA Negative (Negative); Leukocyte Esterase Urine Trace (Negative); Nitrite Urine Negative (Negative); PH 5.5 (5.0-9.0); Specific Gravity - Urine <= 1.005 (1.005-1.025); UMIC TRIGGER UACC YES; Urine Blood Negative (Negative); Urine Ketones Negative (Negative); Urine Protein Negative (Neg-Trace)
[2023-05-08 10:45] LABS: Bacteria Urine 1+ (None Seen); Hyaline Casts Urine 0-2 /LPF (0-2); RBC Urine 0-2 /HPF (0-2); WBC Urine 0-5 /HPF (0-5)
== END 2023-05-08 09:08 | disposition home or self-care (01) ==
LOC: HO.LAB 09:07
PROVIDERS: PCP Internal Medicine; Visit Provider Internal Medicine
DX: R39.9 Unspecified symptoms and signs involving the genitourinary system (principal)
CPT/HCPCS: 81001

== ENCOUNTER 2023-05-21 08:12 | Outpatient (REF) | payer OTHER, SELFPAY | END 2023-05-21 08:13 | disposition home or self-care (01) | LOC: HO.MAMMO 08:12 | PROVIDERS: PCP Internal Medicine; Visit Provider Internal Medicine | DX: Z12.31 Encounter for screening mammogram for malignant neoplasm of breast (principal) | CPT/HCPCS: 77063; 77067 ==

== ENCOUNTER → 2023-05-21 08:15 | Outpatient (BNV) | payer OTHER, SELFPAY | PROVIDERS: PCP Internal Medicine; Visit Provider Radiology Diagnostic Radiology | DX: Z12.31 Encounter for screening mammogram for malignant neoplasm of breast (principal) | CPT/HCPCS: 77063; 77067 ==

== ENCOUNTER 2023-06-02 00:37 | Emergency (ER) | payer OTHER, SELFPAY ==
[2023-06-02 01:35] VITALS: BP 147/83; PULSE 90; RESP 18; TEMP 36.6; O2SAT 97; BMI 32.1
--- NOTE | 2023-06-02 02:10 | ED_ITS ---
HPI - General Adult General Chief complaint: Neck Pain/Injury Stated complaint: Neck pain Time Seen by Provider: 06/02/23 02:10 Source: patient and sample weaver Mode of arrival: ambulatory Limitations: language barrier History of Present Illness HPI narrative: Patient is a 52 year old assigned female at with a history of neck surgery presenting to the emergency department today with neck pain. Patient states that she has had chronic neck issues for years but over the last week she has had increased pain. Patient denies any dizziness, lightheadedness, abdominal pain, nausea, vomiting, fever, chills, blurry vision, double vision, loss of vision, chest pain, difficulty breathing, shortness of breath, back pain, night sweats, pain with urination, increased urinary frequency, increased urinary urgency, blood in her urine or stool, syncope or a near syncopal episode, recent trauma or falls, bowel incontinence, bladder incontinence, bowel retention, bladder retention, or any other complaints at this time. Onset (ago): week(s) (1) Location: neck Severity: mild Severity scale (1-10): 3 Quality: aching and dull Pain Consistency: constant Relieving factors: none Exacerbating factors: none Associated symptoms: denies other symptoms Treatments prior to arrival: none Related Data Previous Rx's Medication Instructions Recorded propranolol 20 mg tablet 20 mg PO DAILY 90 days #90 tabs 09/19/22 hydrocortisone 2.5 % topical cream 1 appl DE BID PRN hemorrhoids #30 11/02/22 with perineal applicator grams (Proctosol HC) loratadine 10 mg tablet (Allergy 10 mg PO DAILY 90 days #90 tabs 01/02/23 Relief (loratadine)) omeprazole 40 mg capsule,delayed 40 mg PO QAM 90 days #90 caps 01/02/23 release cromolyn 4 % eye drops 1 drp ophthalmic (eye) 6XD 7 days 01/10/23 #10 mL gabapentin 400 mg capsule 400 mg PO TID #90 caps 02/28/23 tramadol 50 mg tablet 50 mg PO TID PRN pain #90 tabs 03/08/23 Wrist splint #2 ea 03/13/23 psyllium husk 0.4 gram capsule 0.8 g (2 x 0.4 gram) PO BEDTIME 05/06/23 (Reguloid (psyllium husk)) #60 caps atorvastatin 10 mg tablet 10 mg PO BEDTIME 90 days #90 tabs 05/13/23 meloxicam 15 mg tablet 15 mg PO DAILY 90 days #90 tabs 05/13/23 mirtazapine 15 mg tablet (Remeron) 15 mg PO BEDTIME 90 days #90 tabs 05/30/23 ropinirole 0.5 mg tablet 0.5 mg PO BEDTIME 90 days #90 tabs 05/30/23 cyclobenzaprine 5 mg tablet 5 mg PO TID PRN muscle spasm 7 06/02/23 days #21 tabs prednisone 20 mg tablet 20 mg PO DAILY 7 days #7 tabs 06/02/23 Allergies Allergy/AdvReac Type Severity Reaction Status Date / Time trazodone [TRAZODONE] Allergy Intermediate TACHYCARDIA Verified 12/18/22 16:07 Review of Systems Constitutional: Constitutional: Reports no additional constitutional complaints, Denies chills, Denies fever(s) and Denies night sweats Eyes: Eyes: Reports no additional eye complaints, Denies blurry vision, Denies change in vision, Denies diplopia, Denies eye discharge, Denies loss of vision and Denies eye pain ENT: Denies dizziness and Reports neck pain Cardiovascular: Cardiovascular: Reports no additional cardiovascular complaints, Denies chest pain, Denies lightheadedness, Denies Loss of Consciousness and Denies dyspnea Respiratory: Respiratory: Reports no additional respiratory complaints and Denies dyspnea Gastrointestinal: Gastrointestinal: Reports no additional gastrointestinal complaints, Denies abdominal pain, Denies melena, Denies hematochezia, Denies change in bowel habits and Denies change in stool character Genitourinary: Genitourinary: Denies hematuria, Denies urinary frequency, Denies dysuria, Denies urinary incontinence, Denies urinary hesitancy and Denies urinary urgency Musculoskeletal: Musculoskeletal: Reports no additional musculoskeletal complaints, Reports neck pain, Denies numbness and Denies tingling Neurologic: Denies dizziness, Denies loss of vision, Denies numbness and Denies tingling Psychiatric: Psychiatric: Reports no additional psychiatric complaints Endocrine: Endocrine: Reports no additional endocrine complaints Hematologic/Lymphatic: Hematologic/Lymphatic: Reports no additional hematologic/lymphatic complaints Allergic/Immunologic: Allergic/Immunologic: Reports no additional allergic/immunologic complaints PMFSH Past Medical History Attestation statement: The following information was validated with the patient. Source: old records reviewed and nursing notes reviewed Medical History Constipation Medication monitoring encounter Left foot pain Physical exam Breast pain Breast discharge Irregular bleeding Right knee pain Left shoulder pain COVID-19 Vaginal discharge Well woman exam with routine gynecological exam Pre-diabetes Pre-op examination Physical exam Osteoarthritis of right knee Right elbow pain Cervical radiculopathy Degeneration, intervertebral disc, cervical Cervical spondylosis Cervicalgia Migraines Class 1 obesity due to excess calories without serious comorbidity with body mass index (BMI) of 30.0 to 30.9 in adult Left shoulder pain Pure hypercholesterolemia Fibromyalgia GERD (gastroesophageal reflux disease) Surgical History H/O colonoscopy H/O laminectomy Hx of tubal ligation History of laparoscopic cholecystectomy Family History Family History Father No problems noted. Mother HX: breast cancer Hypertension Hypercholesterolemia Maternal Grandmother Hypertension Diabetes Family/Other HX: breast cancer Social History Social History Housing: Apartment Alcohol intake: never Patient Tobacco Use Status: Never used Tobacco e-Cigarette/Vaping Use: Never Used Second Hand Smoke Exposure: No Advance Directives: No Advance Directives Information Provided: Yes service: No Current occupational status: employed Current occupational exposures/hazards: No Gender identity: Female Cognitive needs: No Hearing needs: No Vision needs: No Physical Exam ED Vital Signs: Vital Signs - 24 hr 06/02/23 01:35 Temperature 97.8 F Pulse Rate 90 Respiratory Rate 18 Blood Pressure 147/83 H Pulse Oximetry 97 Oxygen Delivery Method Room Air BMI result Body Mass Index 32.1 Const General: cooperative, no acute distress, alert and awake Nutritional Appearance: well nourished Orientation/consciousness: patient oriented x3 Limitations: no limitations HENMT Head: Yes normal to inspection and Yes atraumatic Ears: hearing grossly normal bilaterally and external ears normal General nose exam: Normal external nose present, no nasal discharge noted and no epistaxis Face and sinus: Yes normal facial exam, No abrasion and No laceration Mouth: Normal oral and palatal mucosa present, no drooling and no muffled voice Eyes General: appearance normal, both eyes and all related structures Periorbital: periorbital findings normal Eyelids: Yes eyelids normal Conjunctivae: conjunctivae normal Pupils: Equal, round and reactive pupils present EOM: EOMs intact bilaterally Neck Neck: Yes normal visual inspection, Yes full ROM and Yes no lymphadenopathy Chest Chest palpation & inspection: normal inspection of the chest Resp Effort & Inspection: normal respiratory effort and able to speak in complete sentences GI Inspection: Yes normal to inspection Neuro General: patient oriented x3 and moves all extremities Cranial nerves: Yes Equal, round and reactive pupils present Cognition (Neuro): normal cognition Motor exam (neuro): 5/5 motor strength present throughout Sensory Exam: Normal double simultaneous stimulation for sensation Coordination: [id number] test normal Extrem General: Yes normal to inspection, Yes full ROM and Yes capillary refill normal Psych Appearance: grossly normal Mental Status: mental status grossly normal Affect: normal affect Attitude: cooperative Thought process: Normal thought process present Thought content: Normal thought content present Insight: Good insight present (Psych) Medications Administered Discontinued Medications Generic Name Dose Route Start Last Admin Trade Name Freq PRN Reason Stop Dose Admin Cyclobenzaprine HCl 5 mg 06/02/23 02:20 06/02/23 02:38 Cyclobenzaprine Hcl 5 Mg Tablet PO 06/02/23 02:21 5 mg ONCE ONE Administration Prednisone 20 mg 06/02/23 02:20 06/02/23 02:39 Prednisone 20 Mg Tablet PO 06/02/23 02:21 20 mg ONCE ONE Administration Medical Decision Making Medical Decision Making [facility] Narrative: Patient is a 52 year old assigned female at with a history of chronic neck problems presenting to the emergency department today with neck pain. Patient's physical exam was unremarkable. I explained my physical exam findings to the patient. I answered all questions asked by the patient. Patient received PO Prednisone and Flexeril which she stated helped her pain significantly. I stressed the importance of the patient taking her medication as prescribed. I stressed the importance of the patient following up with her primary care provider and her contract management specialist. I stressed the importance of the patient returning to the emergency department immediately if her symptoms were to worsen or if she were to develop any dizziness, shortness of breath, difficulty breathing, chest pain, blurry vision, loss of vision, nausea, vomiting, abdominal pain, fever, chills, back pain, or any other complaints. Patient verbalized agreement and understanding with this treatment plan and discharge. Differential Diagnosis Differential Diagnoses: The differential diagnosis associated with the presentation includes Cervical radiculopathy Chronic neck pain Chronic pain Prescription Management I considered prescription management with: Pain Medication (patient prescribed pain medication.) Discharge Plan Discharge Clinical Impression: Cervical radiculopathy Patient Disposition: Home, Self-Care Instructions: Cervical Radiculopathy (ED) Additional Instructions: Follow up with your primary care provider and your contract management specialist. Return to the emergency department immediately if your symptoms worsen or if you develop any dizziness, shortness of breath, difficulty breathing, chest pain, blurry v ision, loss of vision, nausea, vomiting, abdominal pain, fever, chills, back pain, or any other complaints. Manfred un seguimiento con webster proveedor de atenci?n primaria y webster especialista en columna. Regrese al departamento de emergencias inmediatamente si viraj s?ntomas empeoran o si presenta mareos, dificultad para respirar, dificultad para respirar, dolor en el pecho, visi?n borrosa, p?rdida de la visi?n, n?useas, v?mitos, dolor abdominal, fiebre, escalofr?os, dolor de espalda o cualquier otras quejas. Prescriptions: New cyclobenzaprine 5 mg tablet 5 mg PO TID PRN (Reason: muscle spasm) 7 Days Qty: 21 0RF prednisone 20 mg tablet 20 mg PO DAILY 7 Days Qty: 7 0RF No Action propranolol 20 mg tablet 20 mg PO DAILY 90 Days Qty: 90 1RF loratadine [Allergy Relief (loratadine)] 10 mg tablet 10 mg PO DAILY 90 Days Qty: 90 3RF omeprazole 40 mg capsule,delayed release(DR/EC) 40 mg PO QAM 90 Days Qty: 90 3RF cromolyn 4 % drops 1 drp ophthalmic (eye) 6XD 7 Days Qty: 10 1RF gabapentin 400 mg capsule 400 mg PO TID Qty: 90 3RF tramadol 50 mg tablet 50 mg PO TID PRN (Reason: pain) Qty: 90 2RF (DME) Wrist splint See Rx Instructions .Route .MEDSUPPLY Qty: 2 0RF Rx Instructions: Wear nightly & as much as possible throughout the day psyllium husk [Reguloid (psyllium husk)] 0.4 gram capsule 0.8 g PO BEDTIME Qty: 60 3RF meloxicam 15 mg tablet 15 mg PO DAILY 90 Days Qty: 90 0RF atorvastatin 10 mg tablet 10 mg PO BEDTIME 90 Days Qty: 90 3RF ropinirole 0.5 mg tablet 0.5 mg PO BEDTIME 90 Days Qty: 90 1RF Rx Instructions: administer 1-3 hours before bedtime mirtazapine [Remeron] 15 mg tablet 15 mg PO BEDTIME 90 Days Qty: 90 1RF hydrocortisone [Proctosol HC] 2.5 % cream with perineal applicator 1 appl DE BID PRN (Reason: hemorrhoids) Qty: 30 3RF Referrals: Eugenia French MD [Primary Care Provider] - Stand Alone Forms: Work/School Release Interventions: ED Discharge Assessment Last Done: 06/02/23 02:50 Print Language: Macedonian
[2023-06-02] MEDS: Cyclobenzaprine HCl 5 MG TABLET PO (02:38)
[2023-06-02] MEDS: predniSONE 20 MG TABLET PO (02:39)
[2023-06-02 02:49] VITALS: BP 145/81; PULSE 85; RESP 17; O2SAT 97
== END 2023-06-02 02:51 | disposition home or self-care (01) ==
PROVIDERS: Emergency Provider Emergency Medicine Emergency Medical Services; PCP Internal Medicine
DX: M54.12 Radiculopathy, cervical region (principal); M54.2 Cervicalgia; Z79.899 Other long term (current) drug therapy
CPT/HCPCS: 99283

== ENCOUNTER 2023-06-04 16:09 | Outpatient (AMB) | payer OTHER, SELFPAY ==
--- NOTE | 2023-06-04 16:13 | MHC.OFFVIS ---
Intake Vital Signs 06/04/23 16:14 Height 5 ft 1 in Weight 179 lb 14.355 oz BMI 34.0 BP 146/72 H Blood Pressure Location Rt brachial Position Sitting Pulse 75 Pulse Source Pulse Oximeter Temp 97.5 F Temp Source Skin Pulse Oximetry (%) 98 Intake Visit Reasons: Osteoarthritis/Fibromyalgia Intake Note: Pt presents today for follow up, previously seen by Elisa diego in December. Recently seen in ED for neck pain. Systems Requirements Planner Required: Yes Systems Requirements Planner Name: Dheeraj [id number] Information Interpreted: clinical only Accompanied by: Self / Same As Patient Allergies trazodone [TRAZODONE] Allergy (Intermediate, Verified 06/04/23 16:15) TACHYCARDIA Medication List - Last Reconciled 06/04/23 by Brendan Leon MD atorvastatin 10 mg PO BEDTIME 90 days cromolyn 4% 1 drp ophthalmic (eye) 6XD 7 days cyclobenzaprine 5 mg PO TID PRN 7 days gabapentin 400 mg PO TID hydrocortisone 2.5% (Proctosol HC) 1 appl SD BID PRN loratadine (Allergy Relief (loratadine)) 10 mg PO DAILY 90 days meloxicam 15 mg PO DAILY 90 days mirtazapine (Remeron) 15 mg PO BEDTIME 90 days omeprazole 40 mg PO QAM 90 days prednisone 20 mg PO DAILY 7 days propranolol 20 mg PO DAILY 90 days psyllium husk (Reguloid (psyllium husk)) 0.8 grams (2 x 0.4 gram) PO BEDTIME ropinirole 0.5 mg PO BEDTIME 90 days tramadol 50 mg PO TID PRN [Wrist splint Wear nightly & as much as possible throughout the day] HPI HPI Comments History of Present Illness Details This is a 52-year-old female with osteoarthritis who presents for follow-up. Patient stated that she went to the emergency room 2 days ago due to abrupt onset of neck pain and stiffness. She was discharged on cyclobenzaprine and prednisone. Patient stated that the medications help but she could not take it because she has to drive to work and they can make her sleepy. [facility] Medical History Constipation Medication monitoring encounter Left foot pain Physical exam Breast pain Breast discharge Irregular bleeding Right knee pain Left shoulder pain COVID-19 Vaginal discharge Well woman exam with routine gynecological exam Pre-diabetes Pre-op examination Physical exam Osteoarthritis of right knee Right elbow pain Cervical radiculopathy Degeneration, intervertebral disc, cervical Cervical spondylosis Cervicalgia Migraines Class 1 obesity due to excess calories without serious comorbidity with body mass index (BMI) of 30.0 to 30.9 in adult Left shoulder pain Pure hypercholesterolemia Fibromyalgia GERD (gastroesophageal reflux disease) Surgical History H/O colonoscopy H/O laminectomy Hx of tubal ligation History of laparoscopic cholecystectomy Family History Father No problems noted. Mother HX: breast cancer Hypertension Hypercholesterolemia Maternal Grandmother Hypertension Diabetes Family/Other HX: breast cancer Social History Housing: Apartment Alcohol intake: never Patient Tobacco Use Status: Never used Tobacco e-Cigarette/Vaping Use: Never Used Second Hand Smoke Exposure: No service: No Current occupational status: employed Current occupational exposures/hazards: No Gender identity: Female Cognitive needs: No Hearing needs: No Vision needs: No Review of Systems ENT Reports neck pain Musc Reports arthralgias, Reports neck pain and Reports stiffness Physical Exam Vital Signs: Last Vital Signs Temp 97.5 F 06/04/23 16:14 Pulse 75 06/04/23 16:14 BP 146/72 H 06/04/23 16:14 Pulse Ox 98 06/04/23 16:14 BMI result Body Mass Index 34.0 Const General: cooperative, healthy appearing and comfortable Nutritional Appearance: obese Orientation/consciousness: patient oriented x3 Limitations: no limitations HEENT Head: Yes normocephalic and Yes atraumatic Mouth: moist mucous membranes Neck Other: Significantly limited range of motion in all directions Trapezius and cervical paraspinal muscle spasm on the left Resp Effort & Inspection: normal respiratory effort and able to speak in complete sentences Neuro General: patient oriented x3 Extrem Other: Negative empty can test bilaterally Osteoarthritic changes of both hands with no active synovitis Assessment & Plan Assessment & Plan (1) Cervical paraspinal muscle spasm: Code(s): M62.838 - Other muscle spasm Plan: This is a 52-year-old female with degenerative arthritis who presents for follow-up. Two days ago patient went to the emergency room for abrupt onset of neck pain. She was prescribed Flexeril and prednisone. Patient could not take the medications as they can make her sleepy and she has to drive to work. One evaluation she has muscle spasm. Patient will need some time off in order to be able to take her muscle relaxant. I provided patient with a letter to her employer giving her time off until next Saturday. Advised patient to take the prednisone and Flexeril as prescribed by the emergency room provider (to be taken for 1 week). Can continue with gabapentin and tramadol. I informed patient that can be an interaction between tramadol and Flexeril. Advised patient that if she feels sleepy/ drowsy to hold the tramadol for the next few days. Not to drive or operate heavy machinery if she feels sleepy/dizzy. Advised patient to use a heating pad. Can try [id number] Salonpas patch. Advised patient that if she does not feel any improvement by the end of next week, she should follow-up with pain management. Follow-up in 6 months Plan I spent 26 minutes reviewing patient's chart, evaluating patient, writing letter, counseling patient and documenting in the chart Medications: Refilled tramadol 50 mg PO TID PRN 90 tabs 5RF pain M25.512 - Pain in left shoulder gabapentin 400 mg PO TID 90 caps 5RF M25.512 - Pain in left shoulder Coding Level of Care Code Est Pt Level 4 (56732) Diagnoses Cervical paraspinal muscle spasm M62.838
[2023-06-04 16:14] VITALS: BP 146/72; PULSE 75; TEMP 36.4; O2SAT 98; BMI 34.0
== END 2023-06-04 16:33 | disposition home or self-care (01) ==
PROVIDERS: PCP Internal Medicine; Visit Provider Student in an Organized Health Care Education/Training Program
DX: M62.838 Other muscle spasm (principal)
CPT/HCPCS: 99214

== ENCOUNTER → 2023-06-04 16:09 | Outpatient (BNVA) | payer OTHER, SELFPAY | PROVIDERS: PCP Internal Medicine; Visit Provider Student in an Organized Health Care Education/Training Program | DX: M62.838 Other muscle spasm (principal) | CPT/HCPCS: 99212 ==

== ENCOUNTER 2023-06-26 11:03 | Outpatient (AMB) | payer OTHER, SELFPAY ==
--- NOTE | 2023-06-26 11:18 | MHC.OFFVIS ---
Intake Vital Signs 06/26/23 11:22 Height 5 ft 1 in Weight 181 lb 8 oz BMI 34.3 BP 140/86 H Blood Pressure Location Lt brachial Position Sitting Respiration 14 Pulse 78 Pulse Source Pulse Oximeter Pulse Oximetry (%) 98 Oxygen Delivery Method Room Air Intake Visit Reasons: follow up Radiculopathy, cervical region/lvm Allergies trazodone [TRAZODONE] Allergy (Intermediate, Verified 06/26/23 11:23) TACHYCARDIA HPI HPI Comments History of Present Illness Details Ashley is back in my office after a prolonged period of absence. She reports that she had surgery with Dr. Matta more than 1 year ago with initial good results. However now she is back in my office with complains on pain in the neck returned. She reports pain in the base of her posterior skull radiating into the occipital area and top of the head. She also reports pain on the left side of the neck radiating down to the left shoulder in the projection of a proximal upper border of trapezius muscle. She reports that she had an EMG with unknown practitioner at [facility], apparently this practitioner immediately after EMG performed what it looks like trigger point injection in the side of the neck. She reports that she had great pain exacerbation after this injection. She reports that her pain is aggravated with neck flexing backwards more than flexing forward she also reports that she is under observation with orthopedic surgeon and most likely will go for carpal tunnel surgery penny. Prior: very pleasant 50 years old female under our care for long time. Her MRI was performed before surgery on her neck with Dr. Matta. She complained on pain in the neck which is about 1-year-old which radiates to left upper extremity all the way to the hand and her fingers.? pain is throbbing in nature. She reports weakness in the left wrist.? She is wearing left wrist splint for left hand carpal tunnel.? She is taking tramadol and gabapentin by primary care physician Dr. Stafford? She had the in our shoulder x-ray which is normal left shoulder radiograph.? She had weakness in left upper extremity and awkwardness in movements.? It might be evident of her carpal tunnel syndrome.? [facility] Medical History Constipation Medication monitoring encounter Left foot pain Physical exam Breast pain Breast discharge Irregular bleeding Right knee pain Left shoulder pain COVID-19 Vaginal discharge Well woman exam with routine gynecological exam Pre-diabetes Pre-op examination Physical exam Osteoarthritis of right knee Right elbow pain Cervical radiculopathy Degeneration, intervertebral disc, cervical Cervical spondylosis Cervicalgia Migraines Class 1 obesity due to excess calories without serious comorbidity with body mass index (BMI) of 30.0 to 30.9 in adult Left shoulder pain Pure hypercholesterolemia Fibromyalgia GERD (gastroesophageal reflux disease) Surgical History H/O colonoscopy H/O laminectomy Hx of tubal ligation History of laparoscopic cholecystectomy Family History Father No problems noted. Mother HX: breast cancer Hypertension Hypercholesterolemia Maternal Grandmother Hypertension Diabetes Family/Other HX: breast cancer Social History Housing: Apartment Alcohol intake: never Patient Tobacco Use Status: Never used Tobacco e-Cigarette/Vaping Use: Never Used Second Hand Smoke Exposure: No service: No Current occupational status: employed Current occupational exposures/hazards: No Gender identity: Female Cognitive needs: No Hearing needs: No Vision needs: No Review of Systems Const All systems reviewed & are unremarkable except as noted in HPI and below ENT Reports Normal hearing present and Reports neck pain Musc Reports arthralgias, Reports neck pain and Reports stiffness Neuro Reports Normal hearing present, Denies confusion and Denies Sensory deficit (Neuro) Psych Denies confusion Physical Exam Vital Signs: Last Vital Signs Pulse 78 06/26/23 11:22 Resp 14 06/26/23 11:22 BP 140/86 H 06/26/23 11:22 Pulse Ox 98 06/26/23 11:22 Oxygen Delivery Method Room Air 06/26/23 11:22 BMI result Body Mass Index 34.3 Const General: No confusion Orientation/consciousness: No confusion Eyes Pupils: Equal, round and reactive pupils present EOM: EOMs intact bilaterally Chest Chest palpation & inspection: normal inspection of the chest Resp Effort & Inspection: normal respiratory effort, able to speak in complete sentences, normal respiratory pattern, no audible wheezes and no cough Cardio Jugular venous distension: no JVD Back/Spine/Pelvis Other: tenderness on palpation in paraspinal spinal region in cervical spine. Flexing head backwards and forward aggravates her pain. Axial compression on the head aggravates her pain. Objective weakness may exist in the left upper extremity. Neuro General: No confusion Cranial nerves: Yes Equal, round and reactive pupils present and Yes Normal hearing present Sensory Exam: No Sensory deficit (Neuro) Psych Speech and movement: Normal speech and movement present Affect: normal affect Attitude: cooperative Thought process: Normal thought process present Thought content: Normal thought content present Insight: Good insight present (Psych) Judgement: Good judgement present (Psych) Assessment & Plan Assessment & Plan (1) Cervical spondylosis: Code(s): M47.812 - Spondylosis without myelopathy or radiculopathy, cervical region (2) Cervicalgia: Code(s): M54.2 - Cervicalgia (3) Postlaminectomy syndrome, cervical: Code(s): M96.1 - Postlaminectomy syndrome, not elsewhere classified (4) Occipital neuralgia: Code(s): M54.81 - Occipital neuralgia Plan We agreed that I will schedule this patient for MRI of the cervical spine. After that we will meet again here in my office to discuss the images. We also will try to obtain the results of the EMG she received and Dr. Hills is office open (presumably?) As well as the injection this patient received from EMG practitioner? When MRI is ready will schedule new appointment for this patient with me. Looks like she is also suffering from occipital neuralgia of the cervical and posterior occipital area. I would like to consider occipital nerve block for this patient and if the occipital nerve block will result in good pain relief she could be offered after appropriate shaving of the back of her head trial of the PNS stim wave to treat this condition. Orders: Orders MR cervical spine wo con Today M96.1 - Postlaminectomy syndrome, not elsewhere classified Patient Instructions: I here by testify that I spent 35 minutes in conversation with this patient which was helped by in office certified paint stock clerk, as well as evaluating her previous studies, as well as organizing this note. Coding Level of Care Code Est Pt Level 4 (37956) Diagnoses Cervical spondylosis M47.812 Cervicalgia M54.2 Postlaminectomy syndrome, cervical M96.1 Occipital neuralgia M54.81
[2023-06-26 11:22] VITALS: BP 140/86; PULSE 78; RESP 14; O2SAT 98; BMI 34.3
== END 2023-06-26 12:02 | disposition home or self-care (01) ==
PROVIDERS: PCP Internal Medicine; Visit Provider Anesthesiology
DX: M47.812 Spondylosis without myelopathy or radiculopathy, cervical region (principal); M54.2 Cervicalgia; M96.1 Postlaminectomy syndrome, not elsewhere classified; M54.81 Occipital neuralgia
CPT/HCPCS: 99214

== ENCOUNTER → 2023-06-26 11:03 | Outpatient (BNVA) | payer OTHER, SELFPAY | PROVIDERS: PCP Internal Medicine; Visit Provider Anesthesiology | DX: M47.812 Spondylosis without myelopathy or radiculopathy, cervical region (principal); M54.2 Cervicalgia; M96.1 Postlaminectomy syndrome, not elsewhere classified; M54.81 Occipital neuralgia | CPT/HCPCS: 99212 ==

== ENCOUNTER 2023-08-13 08:51 | Outpatient (AMB) | payer OTHER, SELFPAY ==
[2023-08-13 08:52] VITALS: BP 152/90; BMI 34.4
--- NOTE | 2023-08-13 08:52 | MHC.PC.OV ---
Vital Signs 08/13/23 08:52 08/13/23 09:18 Height 5 ft 1 in Weight 182 lb BMI 34.4 BP 152/90 H 150/90 H Blood Pressure Location Lt brachial Lt brachial Position Sitting Sitting Intake Visit Reasons: PE Intake Note: Patient here for a physical exam, c/o urinary incontinence Traffic Control Specialist Required: No Accompanied by: Self / Same As Patient Allergies trazodone [TRAZODONE] Allergy (Intermediate, Verified 08/13/23 09:02) TACHYCARDIA Medication List - Last Reconciled 08/13/23 by Eugenia Whyte MD atorvastatin 10 mg PO BEDTIME 90 days cromolyn 4% 1 drp ophthalmic (eye) 6XD 7 days cyclobenzaprine 5 mg PO TID PRN 7 days gabapentin 400 mg PO TID hydrocortisone 2.5% (Proctosol HC) 1 appl HI BID PRN loratadine (Allergy Relief (loratadine)) 10 mg PO DAILY 90 days meloxicam 15 mg PO DAILY 90 days mirtazapine (Remeron) 15 mg PO BEDTIME 90 days omeprazole 40 mg PO QAM 90 days propranolol 20 mg PO DAILY 90 days psyllium husk (Reguloid (psyllium husk)) 0.8 grams (2 x 0.4 gram) PO BEDTIME ropinirole 0.5 mg PO BEDTIME 90 days tramadol 50 mg PO TID PRN [Wrist splint Wear nightly & as much as possible throughout the day] Tobacco use date assessed: 12/03/22 Dental Screening Dental Screen Date: 08/13/23 Did you have a dental visit in the last 12 months?: Yes Did you have a dental problem in the last 6 months where you did not have access to dental care?: No Was dental information given to patient?: Patient has dentist HPI HPI Comments History of Present Illness Details This is a 52-year-old female with mild recurrent major depression that comes for her physical exam. Depression stable with medications. Mammogram done 2022. Pap smear done 2018. Colonoscopy done 2022. Occasional chest pain at rest. No shortness of breath. Some urinary incontinence when coughing. Blood pressure elevated and I will start her on losartan. Blood pressure will be recheck in 3 weeks by nurse navigator. [facility] Medical History (Updated 08/13/23 @ 09:15 by Eugenia Whyte MD) Physical exam Constipation Medication monitoring encounter Left foot pain Breast pain Breast discharge Irregular bleeding Right knee pain Left shoulder pain COVID-19 Vaginal discharge Well woman exam with routine gynecological exam Pre-diabetes Pre-op examination Physical exam Osteoarthritis of right knee Right elbow pain Cervical radiculopathy Degeneration, intervertebral disc, cervical Cervical spondylosis Cervicalgia Migraines Class 1 obesity due to excess calories without serious comorbidity with body mass index (BMI) of 30.0 to 30.9 in adult Left shoulder pain Pure hypercholesterolemia Fibromyalgia GERD (gastroesophageal reflux disease) Surgical History H/O colonoscopy H/O laminectomy Hx of tubal ligation History of laparoscopic cholecystectomy Family History Father No problems noted. Mother HX: breast cancer Hypertension Hypercholesterolemia Maternal Grandmother Hypertension Diabetes Family/Other HX: breast cancer Social History Housing: Apartment Alcohol intake: never Patient Tobacco Use Status: Never used Tobacco e-Cigarette/Vaping Use: Never Used Second Hand Smoke Exposure: No service: No Current occupational status: employed Current occupational exposures/hazards: No Gender identity: Female Cognitive needs: No Hearing needs: No Vision needs: No Questionnaire Thrive Questionnaire Date Thrive assessed: 12/03/22 SABI-7 AMB Questionnaire SABI-7 Date SABI - 7 assessed: 12/03/22 Source: Developed by Drs. Kihsor Chavira, Janet Graff, Tae Paz and colleagues, with an educational kelley from [employer]. Review of Systems Const All systems reviewed & are unremarkable except as noted in HPI and below Eyes Reports no additional complaints, Denies change in vision and Denies other visual disturbances Card Reports chest pain at rest, Denies chest pain with activity, Denies edema, Denies irregular heart rhythm, Denies claudication, Denies dyspnea, Denies dyspnea on exertion, Denies orthopnea, Denies paroxysmal nocturnal dyspnea and Denies slow heart rate Resp Denies cough, Denies dyspnea and Denies dyspnea on exertion GI Denies abdominal pain, Denies change in bowel habits, Denies excessive flatus, Denies nausea and Denies vomiting Reports urinary incontinence, Denies urinary hesitancy and Denies urinary urgency Musc Denies abnormal gait, Denies atrophy, Denies deformity and Denies limited range of motion Skin/Breast Denies bleeding lesions, Denies changing lesions and Denies rash Neuro Denies abnormal gait, Denies behavioral changes, Denies confusion and Denies lack of coordination Psych Denies behavioral changes and Denies confusion Physical exam (Primary Care) Vital Signs: Last Vital Signs BP 150/90 H 08/13/23 09:18 BMI result Body Mass Index 34.4 Tobacco/Smoking Status: Tobacco use Status Tobacco use date assessed 12/03/22 08/13/23 08:58 Patient Tobacco Use Status Never used Tobacco 08/13/23 08:58 e-Cigarette/Vaping Use Never Used 08/13/23 08:58 Thrive Assessment: Date of Thrive Assessment Date Thrive assessed 12/03/22 08/13/23 08:58 Const General: No confusion Orientation/consciousness: patient oriented x3 and No confusion HENMT Head: Yes normal to inspection, Yes normocephalic and Yes atraumatic Ears: external ears normal Eyes General: appearance normal, both eyes and all related structures Eyelids: Yes eyelids normal Conjunctivae: conjunctivae normal Neck Neck: Yes normal visual inspection and Yes supple Resp Effort & Inspection: normal respiratory effort Auscultation: clear to auscultation bilaterally Cardio Jugular venous distension: no JVD Rate: regular rate Rhythm: regular rhythm Heart sounds: S1 normal heart sound present and S2 normal heart sound present GI Inspection: Yes normal to inspection Palpation (GI): Soft to palpation and nontender Auscultation: normal bowel sounds Skin General skin exam: no rashes or lesions noted Neuro General: patient oriented x3, no focal motor deficits and No confusion Extrem General: Yes full ROM Psych Appearance: grossly normal Office Procedures Flu Questionnaire Does the patient have a severe egg allergy?: No Does the patient have severe life threatening allergies?: No Does the patient have a fever or illness today?: No Has the patient ever had Guillain-[place] Syndrome?: No Has the patient ever had any past reaction to a flu shot?: No Immunizations flu vacc [id number] 6mos up(PF) 60 mcg(15 mcgx4)/0.5 mL IM syringe Performing Provider: Eugenia Whyte MD Performing Location: [facility] Administered by: VANESSA Simmons on 08/13/23 09:16 Dose Route Admin Location Dispensed Lot Number Expiration Date NDC Manager Engine 0.5 mL IM Left Deltoid 0.5 mL [id number] 02/16/24 [id number] [employer] VIS Given Date VIS Provided VIS Publication Date 08/13/23 Single Vaccine 21 Eligibility Eligibility Date Funding Source [place] [facility] [place] 08/13/23 Private Assessment and Plan Assessment & Plan (1) Physical exam: Code(s): Z00.00 - Encounter for general adult medical examination without abnormal findings Plan: Repeat in a year. (2) Mild recurrent major depression: Code(s): F33.0 - Major depressive disorder, recurrent, mild Plan: Continue mirtazapine. Orders: Orders Influenza [id number] Immunization Today Z23 - Encounter for immunization Lipid Panel Today E78.5 - Hyperlipidemia, unspecified Comprehensive [place]. Panel Fast Today Z00.00 - Encounter for general adult medical examination without abnormal findings ECG 12 lead EKG Today R07.9 - Chest pain, unspecified Medications: New losartan 25 mg PO DAILY 90 tabs 1RF 90 days I10 - Essential (primary) hypertension oxybutynin chloride 5 mg PO BEDTIME PRN 30 tabs 0RF bladder spasms 30 days Coding Level of Care Code Est Pt Prev Care 40-64y(27715) Diagnoses Physical exam Z00.00 Mild recurrent major depression F33.0 Time Spent (min) 32
[2023-08-13 09:18] VITALS: BP 150/90
== END 2023-08-13 09:17 | disposition home or self-care (01) ==
PROVIDERS: Visit Provider Internal Medicine
DX: Z00.00 Encounter for general adult medical examination without abnormal findings (principal); F33.0 Major depressive disorder, recurrent, mild; Z23 Encounter for immunization
CPT/HCPCS: 90471; 90686; 99396

== ENCOUNTER 2023-08-28 07:33 | Outpatient (REF) | payer OTHER, SELFPAY ==
--- NOTE | ~2023-08-28 | MR_ITS ---
EXAMINATION: MR CERVICAL SPINE WITHOUT CONTRAST CLINICAL INFORMATION: The patient states left neck pain and cramps status post injection 2-3 months ago. COMPARISON: MRI scan of the cervical spine 06/07/2021. TECHNIQUE: MRI of the cervical spine was obtained using routine sequences without contrast. FINDINGS: VERTEBRAL BODIES AND PARASPINAL SOFT TISSUES: There is a mild levoscoliosis in the cervicothoracic region. There is overall straightening of the cervical lordosis, and there is a mild anterolisthesis of C5 on C6, unchanged. There is narrowing of intervertebral disc height at multiple levels, most severe at C6-C7. Vertebral body heights are maintained, and no fractures are demonstrated. Marrow signal is homogenous. The regional soft tissues are unremarkable. CERVICOMEDULLARY JUNCTION AND VISUALIZED POSTERIOR FOSSA: The craniocervical and posterior fossa structures are normal. Accounting for artifact, spinal cord signal appears normal. SPINAL LEVELS: C2-C3: There is mild bilateral facet arthropathy. There is a shallow posterior disc protrusion without cord compression or central stenosis. The neural foramina are patent bilaterally. C3-C4: There is mild left facet arthropathy. There is a shallow posterior soft disc protrusion with some effacement of CSF around the cord, but there is no central stenosis or cord compression. There is severe left foraminal narrowing. C4-C5: There is mild left facet arthropathy. There is a posterior disc protrusion eccentrically more prominent on the right with some distortion of the ventral thecal sac, but there is no cord compression or central stenosis. There is moderate left foraminal narrowing. C5-C6: There is mild bilateral facet arthropathy. There is a shallow posterior disc protrusion without cord compression or central stenosis. There is minimal bilateral foraminal narrowing. C6-C7: There is mild bilateral facet arthropathy. There is a posterior soft disc protrusion which is eccentrically more prominent to the right of midline with some distortion of the ventral thecal sac, but there is no cord compression or central stenosis. There are right greater than left uncovertebral osteophytes, and there is severe left and mild right foraminal narrowing. C7-T1: There is mild left facet arthropathy. There is a shallow posterior disc protrusion but there is no cord compression or central stenosis. The neural foramina are patent bilaterally. MR/MR cervical spine wo con IMPRESSION: 1. At C6-C7 there is facet arthropathy and there is a posterior soft disc protrusion without cord compression or central stenosis. There are uncovertebral osteophytes and there is severe left and mild right foraminal narrowing. 2. At C3-C4 there is left facet arthropathy and there is a shallow posterior disc protrusion. There is no cord compression or central stenosis. There is moderate to severe left foraminal narrowing. 3. At C4-C5 there is a posterior disc protrusion without cord compression or central stenosis. There is moderate left foraminal narrowing.
== END 2023-08-28 07:34 | disposition home or self-care (01) ==
LOC: HO.MRI 07:33
PROVIDERS: PCP Internal Medicine; Visit Provider Anesthesiology
DX: M96.1 Postlaminectomy syndrome, not elsewhere classified (principal)
CPT/HCPCS: 72141

== ENCOUNTER 2023-09-11 09:08 | Outpatient (AMB) | payer OTHER, SELFPAY ==
[2023-09-11 09:21] VITALS: BP 136/65; PULSE 83; RESP 18; O2SAT 97; BMI 34.1
--- NOTE | 2023-09-11 09:21 | MHC.OFFVIS ---
Intake Vital Signs 09/11/23 09:21 Height 5 ft 1 in Weight 180 lb 6 oz BMI 34.1 BP 136/65 Blood Pressure Location Lt brachial Position Sitting Respiration 18 Pulse 83 Pulse Source Pulse Oximeter Pulse Oximetry (%) 97 Oxygen Delivery Method Room Air Intake Visit Reasons: Follow Up/MRI Results Allergies trazodone [TRAZODONE] Allergy (Intermediate, Verified 09/11/23 09:20) TACHYCARDIA HPI HPI Comments History of Present Illness Details Ashley is back in my office to review the results of her MRI and continuation of care. She is Welsh-speaking individual and we did the conversation today with [employer] dean [id number]. She today complains on pain in the back of the neck on the left side with radiation to the upper shoulder. We reviewed the MRI of the cervical spine, there are some facet arthropathy in the cervical spine. She reports that her pain is exacerbated both flexing head forward and backwards however the pain is exacerbated more with flexing had backwards. The axial loading test is also positive for the pain increase on the left. It seemed to be that she is suffering from left facet joint arthropathy more than the right. I invited her to perform cervical medial branch block C4-C5 C6-C7 diagnostic. She also complains on numbness in bilateral hands especially in the morning. She was in rheumatology office diagnosed with carpal tunnel syndrome. She never was offered any surgery. I told her that I will send her to confirm this diagnosis to the EMG. The very moment she will go for EMG she would need to give me a call and we will schedule her for appointment with orthopedic hand surgeon Dr. Barrios. Prior: She reports that she had surgery with Dr. Matta more than 1 year ago with initial good results. However now she is back in my office with complains on pain in the neck returned. She reports pain in the base of her posterior skull radiating into the occipital area and top of the head. She also reports pain on the left side of the neck radiating down to the left shoulder in the projection of a proximal upper border of trapezius muscle. She reports that she had an EMG with unknown practitioner at [facility], apparently this practitioner immediately after EMG performed what it looks like trigger point injection in the side of the neck. She reports that she had great pain exacerbation after this injection. She reports that her pain is aggravated with neck flexing backwards more than flexing forward she also reports that she is under observation with orthopedic surgeon and most likely will go for carpal tunnel surgery penny. Her MRI was performed before surgery on her neck with Dr. Matta. She complained on pain in the neck which is about 1-year-old which radiates to left upper extremity all the way to the hand and her fingers.? pain is throbbing in nature. She reports weakness in the left wrist.? She is wearing left wrist splint for left hand carpal tunnel.? She is taking tramadol and gabapentin by primary care physician Dr. Stafford? She had the in our shoulder x-ray which is normal left shoulder radiograph.? She had weakness in left upper extremity and awkwardness in movements.? It might be evident of her carpal tunnel syndrome.? [facility] Medical History (Updated 09/11/23 @ 09:48 by Bennie Page MD) Physical exam Constipation Medication monitoring encounter Left foot pain Breast pain Breast discharge Irregular bleeding Right knee pain Left shoulder pain COVID-19 Vaginal discharge Well woman exam with routine gynecological exam Pre-diabetes Pre-op examination Physical exam Osteoarthritis of right knee Right elbow pain Cervical radiculopathy Degeneration, intervertebral disc, cervical Cervical spondylosis Cervicalgia Migraines Class 1 obesity due to excess calories without serious comorbidity with body mass index (BMI) of 30.0 to 30.9 in adult Left shoulder pain Pure hypercholesterolemia Fibromyalgia GERD (gastroesophageal reflux disease) Surgical History H/O colonoscopy H/O laminectomy Hx of tubal ligation History of laparoscopic cholecystectomy Family History Father No problems noted. Mother HX: breast cancer Hypertension Hypercholesterolemia Maternal Grandmother Hypertension Diabetes Family/Other HX: breast cancer Social History Housing: Apartment Alcohol intake: never Patient Tobacco Use Status: Never used Tobacco e-Cigarette/Vaping Use: Never Used Second Hand Smoke Exposure: No service: No Current occupational status: employed Current occupational exposures/hazards: No Gender identity: Female Cognitive needs: No Hearing needs: No Vision needs: No Review of Systems Const All systems reviewed & are unremarkable except as noted in HPI and below ENT Reports Normal hearing present Neuro Reports Normal hearing present, Denies confusion and Denies Sensory deficit (Neuro) Psych Denies confusion Physical Exam Vital Signs: Last Vital Signs Pulse 83 09/11/23 09:21 Resp 18 09/11/23 09:21 BP 136/65 09/11/23 09:21 Pulse Ox 97 09/11/23 09:21 Oxygen Delivery Method Room Air 09/11/23 09:21 BMI result Body Mass Index 34.1 Const General: No confusion Orientation/consciousness: No confusion Eyes Pupils: Equal, round and reactive pupils present EOM: EOMs intact bilaterally Chest Chest palpation & inspection: normal inspection of the chest Resp Effort & Inspection: normal respiratory effort, able to speak in complete sentences, normal respiratory pattern, no audible wheezes and no cough Cardio Jugular venous distension: no JVD Back/Spine/Pelvis Other: tenderness on palpation in paraspinal spinal region in cervical spine. Flexing head backwards and forward aggravates her pain. Axial compression on the head aggravates her pain. Objective weakness may exist in the left upper extremity. Neuro General: No confusion Cranial nerves: Yes Equal, round and reactive pupils present and Yes Normal hearing present Sensory Exam: No Sensory deficit (Neuro) Psych Speech and movement: Normal speech and movement present Affect: normal affect Attitude: cooperative Thought process: Normal thought process present Thought content: Normal thought content present Insight: Good insight present (Psych) Judgement: Good judgement present (Psych) Results Reviewed Results Reviewed: MR CERVICAL SPINE WITHOUT CONTRAST CLINICAL INFORMATION: The patient states left neck pain and cramps status post injection 2-3 months ago. COMPARISON: MRI scan of the cervical spine 06/07/2021. TECHNIQUE: MRI of the cervical spine was obtained using routine sequences without contrast. FINDINGS: VERTEBRAL BODIES AND PARASPINAL SOFT TISSUES: There is a mild levoscoliosis in the cervicothoracic region. There is overall straightening of the cervical lordosis, and there is a mild anterolisthesis of C5 on C6, unchanged. There is narrowing of intervertebral disc height at multiple levels, most severe at C6-C7. Vertebral body heights are maintained, and no fractures are demonstrated. Marrow signal is homogenous. The regional soft tissues are unremarkable. CERVICOMEDULLARY JUNCTION AND VISUALIZED POSTERIOR FOSSA: The craniocervical and posterior fossa structures are normal. Accounting for artifact, spinal cord signal appears normal. SPINAL LEVELS: C2-C3: There is mild bilateral facet arthropathy. There is a shallow posterior disc protrusion without cord compression or central stenosis. The neural foramina are patent bilaterally. C3-C4: There is mild left facet arthropathy. There is a shallow posterior soft disc protrusion with some effacement of CSF around the cord, but there is no central stenosis or cord compression. There is severe left foraminal narrowing. C4-C5: There is mild left facet arthropathy. There is a posterior disc protrusion eccentrically more prominent on the right with some distortion of the ventral thecal sac, but there is no cord compression or central stenosis. There is moderate left foraminal narrowing. C5-C6: There is mild bilateral facet arthropathy. There is a shallow posterior disc protrusion without cord compression or central stenosis. There is minimal bilateral foraminal narrowing. C6-C7: There is mild bilateral facet arthropathy. There is a posterior soft disc protrusion which is eccentrically more prominent to the right of midline with some distortion of the ventral thecal sac, but there is no cord compression or central stenosis. There are right greater than left uncovertebral osteophytes, and there is severe left and mild right foraminal narrowing. C7-T1: There is mild left facet arthropathy. There is a shallow posterior disc protrusion but there is no cord compression or central stenosis. The neural foramina are patent bilaterally. IMPRESSION: 1. At C6-C7 there is facet arthropathy and there is a posterior soft disc protrusion without cord compression or central stenosis. There are uncovertebral osteophytes and there is severe left and mild right foraminal narrowing. 2. At C3-C4 there is left facet arthropathy and there is a shallow posterior disc protrusion. There is no cord compression or central stenosis. There is moderate to severe left foraminal narrowing. 3. At C4-C5 there is a posterior disc protrusion without cord compression or central stenosis. There is moderate left foraminal narrowing. Assessment & Plan Assessment & Plan (1) Cervical spondylosis: Code(s): M47.812 - Spondylosis without myelopathy or radiculopathy, cervical region (2) Cervicalgia: Code(s): M54.2 - Cervicalgia (3) Postlaminectomy syndrome, cervical: Code(s): M96.1 - Postlaminectomy syndrome, not elsewhere classified (4) Occipital neuralgia: Code(s): M54.81 - Occipital neuralgia (5) Carpal tunnel syndrome: Code(s): G56.00 - Carpal tunnel syndrome, unspecified upper limb Plan: (6) Spondylosis of cervical region without myelopathy or radiculopathy: Code(s): M47.812 - Spondylosis without myelopathy or radiculopathy, cervical region Plan 1. I will send this patient for EMG to Dr. Ball. 2. Changes on MRI are nonspecific. She does not complains on pain radiating to the left arm anymore. Most of the complain is projection of the neck. With diagnosis of spondylosis of cervical spine without myelopathy or radiculopathy we will schedule this patient for diagnostic medial branch block C4-C5 C6-C7 on the left. 3. Sprint PNS versus therapeutic medial branch block could be considered with good results of the left diagnostic MBB. Orders: Orders NE electromyogram (EMG) Today G56.00 - Carpal tunnel syndrome, unspecified upper limb Coding Level of Care Code Est Pt Level 4 (77739) Diagnoses Cervical spondylosis M47.812 Cervicalgia M54.2 Postlaminectomy syndrome, cervical M96.1 Occipital neuralgia M54.81 Carpal tunnel syndrome G56.00 Spondylosis of cervical region without myelopathy or radiculopathy M47.812
== END 2023-09-11 09:35 | disposition home or self-care (01) ==
PROVIDERS: PCP Internal Medicine; Visit Provider Anesthesiology
DX: M47.812 Spondylosis without myelopathy or radiculopathy, cervical region (principal); M54.2 Cervicalgia; M96.1 Postlaminectomy syndrome, not elsewhere classified; M54.81 Occipital neuralgia; G56.00 Carpal tunnel syndrome, unspecified upper limb
CPT/HCPCS: 99214

== ENCOUNTER → 2023-09-11 09:08 | Outpatient (BNVA) | payer OTHER, SELFPAY | PROVIDERS: PCP Internal Medicine; Visit Provider Anesthesiology | DX: M47.812 Spondylosis without myelopathy or radiculopathy, cervical region (principal); M54.2 Cervicalgia; M96.1 Postlaminectomy syndrome, not elsewhere classified; M54.81 Occipital neuralgia; G56.00 Carpal tunnel syndrome, unspecified upper limb | CPT/HCPCS: 99212 ==

== ENCOUNTER 2023-10-14 13:34 | Outpatient (REF) | payer OTHER, SELFPAY ==
[2023-10-14 14:44] LABS: Influenza A PCR NEGATIVE (Negative); Influenza B PCR NEGATIVE (Negative); Resp Syncy Virus RNA Qual PCR NEGATIVE (Negative); SARS COV2 PCR INHOUSE NEGATIVE (Negative)
== END 2023-10-14 13:35 | disposition home or self-care (01) ==
LOC: HO.LAB 13:34
PROVIDERS: PCP Internal Medicine; Visit Provider Internal Medicine
DX: Z11.52 Encounter for screening for COVID-19 (principal); Z20.822 Contact with and (suspected) exposure to COVID-19; R09.89 Other specified symptoms and signs involving the circulatory and respiratory systems
CPT/HCPCS: 0241U

== ENCOUNTER 2023-10-18 08:55 | Outpatient (REF) | payer OTHER, SELFPAY ==
--- NOTE | 2023-10-18 08:57 | EMG_ITS ---
Chief complaint: History of neck pain. Hand numbness with repetitive motion, left worse than right. Reason for referral: Evaluate for Carpal Tunnel Syndrome Previous NCS/EMG done by Dr. Hills 02/21/2023 reviewed. Referred by: Dr. Page Procedure done: Bilateral upper extremities NCS/EMG Precautions and/or limitations: History of cervical spine surgery. Fijian speaking, seen with staff interpreter. The limb temperature was monitored continuously and remained between 32-36 degrees C during the performance of the NCS. Nerve Conduction Studies Anti Sensory Summary Table ?Stim Site NR Onset (ms) Norm Onset (ms) Peak (ms) Norm Peak (ms) O-P Amp (?V) Norm O-P Amp Site1 Site2 Delta-0 (ms) Dist (cm) Rey (m/s) Norm Rey (m/s) Left Median Anti Sensory (2nd Digit) Wrist ? 3.4 4.1 <3.6 24.8 >10 Wrist 2nd Digit 3.4 14.0 41 Right Median Anti Sensory (2nd Digit) Wrist ? 3.3 4.0 <3.6 29.7 >10 Wrist 2nd Digit 3.3 14.0 42 Left Ulnar Anti Sensory (5th Digit) Wrist ? 2.1 2.8 <3.7 40.1 >15.0 Wrist 5th Digit 2.1 14.0 67 Right Ulnar Anti Sensory (5th Digit) Wrist ? 2.1 2.8 <3.7 32.8 >15.0 Wrist 5th Digit 2.1 14.0 67 Motor Summary Table ?Stim Site NR Onset (ms) Norm Onset (ms) O-P Amp (mV) Norm O-P Amp iAmp (mV) Amp (1st) (%) Site1 Site2 Delta-0 (ms) Dist (cm) Rey (m/s) Norm Rey (m/s) Left Median Motor (Abd Poll Brev) Wrist ? 4.3 <3.9 6.9 >4.5 8.0 100.0 Elbow Wrist 3.4 20.0 59 >45 Elbow ? 7.7 6.7 7.8 97.1 Right Median Motor (Abd Poll Brev) Wrist ? 3.8 <3.9 6.3 >4.5 7.1 100.0 Elbow Wrist 3.8 18.5 49 >45 Elbow ? 7.6 5.7 6.5 90.5 Left Ulnar Motor (Abd Dig Minimi) Wrist ? 2.5 <3.0 8.6 >5 10.5 100.0 B Elbow Wrist 2.8 18.0 64 >45 B Elbow ? 5.3 7.9 9.9 91.9 A Elbow B Elbow 1.3 10.0 77 >45 A Elbow ? 6.6 7.4 9.4 86.0 Right Ulnar Motor (Abd Dig Minimi) Wrist ? 2.7 <3.0 11.0 >5 13.5 100.0 B Elbow Wrist 2.8 17.0 61 >45 B Elbow ? 5.5 10.1 12.6 91.8 A Elbow B Elbow 1.3 0.0 >45 A Elbow ? 6.8 9.6 12.3 87.3 Comparison Summary Table ?Stim Site NR Peak (ms) Norm Peak (ms) P-T Amp (?V) Site1 Site2 Delta-P (ms) Norm Delta (ms) Left Median/Radial Dig I Comparison (Digit 1 - 10cm) Median ? 3.2 <2.9 58.2 Median Radial 0.9 Radial ? 2.3 <2.8 24.0 Right Median/Radial Dig I Comparison (Digit 1 - 10cm) Median ? 3.3 <2.9 39.0 Median Radial 1.1 Radial ? 2.2 <2.8 33.2 EMG ?Side Muscle Nerve Root Ins Act Fibs Psw Amp Dur Poly Recrt Int Pat Comment Right 1stDorInt Ulnar C8-T1 Nml Nml Nml Nml Nml 0 Nml Complete Right FlexCarRad Median C6-7 Nml Nml Nml Nml Nml 0 Nml Complete Right Biceps Musculocut C5-6 Nml Nml Nml Nml Nml 0 Nml Complete Right Triceps Radial C6-7-8 Nml Nml Nml Nml Nml 0 Nml Complete Right Deltoid Axillary C5-6 Nml Nml Nml Nml Nml 0 Nml Complete Left 1stDorInt Ulnar C8-T1 Nml Nml Nml Nml Nml 0 Nml Complete Left FlexCarRad Median C6-7 Nml Nml Nml Nml Nml 0 Nml Complete Left Biceps Musculocut C5-6 Nml Nml Nml Nml Nml 0 Nml Complete Left Triceps Radial C6-7-8 Nml Nml Nml Nml Nml 0 Nml Complete Left Deltoid Axillary C5-6 Nml Nml Nml Nml Nml 0 Nml Complete FINDINGS: Left median motor nerve showed prolonged distal latency, normal amplitude and normal conduction velocity. Bilateral median sensory nerves showed prolonged peak latency. Significant interlatency difference between median and radial sensory nerves, recording digit 1, bilateral. All other nerves tested were within normal. Concentric needle EMG was performed in selected muscles of the bilateral upper extremities. Study did not reveal signs of electric abnormalities as shown in the table below. IMPRESSION: 1. This is an abnormal study. 2. There is electrodiagnostic evidence for left moderate-severe and right mild median neuropathy at the wrist, consistent with carpal tunnel syndrome. 3. There is no electrodiagnostic evidence for ulnar neuropathy, brachial plexopathy, or cervical radiculopathy. CLINICAL COMMENT: Findings discussed with patient. Patient has already met with hand surgeon Dr. Bariros. Thank you for your kind referral. Nisa Conley MD, SILVERIO Board Certified, [place] [employer] and [employer] (ABPMR) Board Certified, [place] [employer] Electrodiagnostic Medicine (ABEM) CODIN [id number] x 2 MTDD
== END 2023-10-18 08:56 | disposition home or self-care (01) ==
LOC: HO.NEURO 08:55
PROVIDERS: PCP Internal Medicine; Visit Provider Physical Medicine & Rehabilitation
DX: G56.00 Carpal tunnel syndrome, unspecified upper limb (principal)
CPT/HCPCS: 95886; 95911

== ENCOUNTER → 2023-10-18 08:57 | Outpatient (BNV) | payer OTHER, SELFPAY | PROVIDERS: PCP Internal Medicine; Visit Provider Physical Medicine & Rehabilitation | DX: G56.03 Carpal tunnel syndrome, bilateral upper limbs (principal); G56.13 Other lesions of median nerve, bilateral upper limbs | CPT/HCPCS: 95886; 95911 ==

== ENCOUNTER 2023-11-12 06:07 | Outpatient (REF) | payer OTHER, SELFPAY ==
--- NOTE | ~2023-11-12 | FL_ITS ---
EXAMINATION: XR FLUOROSCOPY WITH IMAGES CLINICAL INFORMATION: Spondylosis COMPARISON: None available. TECHNIQUE: Fluoroscopy Supervised By: Dr. Bennie Page. Fluoroscopy Time: 0.4 minutes. Cumulative Dose: 3.65 mGy. DAP: 0.0635 Gycm2. Images: 4. FINDINGS: 3 spinal needles in the left lateral transforaminal spaces of the cervical spine FL/FL guidance in treatment room IMPRESSION: Left transforaminal cervical injection
== END 2023-11-12 06:08 | disposition home or self-care (01) ==
LOC: CF 06:07
PROVIDERS: Visit Provider Anesthesiology
DX: M47.812 Spondylosis without myelopathy or radiculopathy, cervical region (principal); M96.1 Postlaminectomy syndrome, not elsewhere classified; M54.81 Occipital neuralgia
CPT/HCPCS: 64490; 64491; J2795; Q9967

== ENCOUNTER 2023-11-12 08:01 | Outpatient (AMB) | payer OTHER, SELFPAY ==
[2023-11-12 08:18] VITALS: BP 136/88; PULSE 99; RESP 18; O2SAT 98; BMI 34.0
--- NOTE | 2023-11-12 08:18 | A.OFFVIS_ITS ---
Intake Vital Signs 11/12/23 08:18 11/12/23 09:08 Height 5 ft 1 in Weight 180 lb BMI 34.0 BP 136/88 140/88 H Blood Pressure Location Lt brachial Lt brachial Position Sitting Sitting Respiration 18 20 Pulse 99 Pulse Source Pulse Oximeter Pulse Oximetry (%) 98 98 Oxygen Delivery Method Room Air Room Air Comment Pre-Op Post-Op Intake Visit Reasons: LEFT DIAGNOSTIC C4,C5,C6, C7 MBB Allergies trazodone [TRAZODONE] Allergy (Intermediate, Verified 09/11/23 09:20) TACHYCARDIA [facility] Medical History (Updated 09/11/23 @ 09:48 by Bennie Page MD) Physical exam Constipation Medication monitoring encounter Left foot pain Breast pain Breast discharge Irregular bleeding Right knee pain Left shoulder pain COVID-19 Vaginal discharge Well woman exam with routine gynecological exam Pre-diabetes Pre-op examination Physical exam Osteoarthritis of right knee Right elbow pain Cervical radiculopathy Degeneration, intervertebral disc, cervical Cervical spondylosis Cervicalgia Migraines Class 1 obesity due to excess calories without serious comorbidity with body mass index (BMI) of 30.0 to 30.9 in adult Left shoulder pain Pure hypercholesterolemia Fibromyalgia GERD (gastroesophageal reflux disease) Surgical History H/O colonoscopy H/O laminectomy Hx of tubal ligation History of laparoscopic cholecystectomy Family History Father No problems noted. Mother HX: breast cancer Hypertension Hypercholesterolemia Maternal Grandmother Hypertension Diabetes Family/Other HX: breast cancer Social History Housing: Apartment Alcohol intake: never Patient Tobacco Use Status: Never used Tobacco e-Cigarette/Vaping Use: Never Used Second Hand Smoke Exposure: No service: No Current occupational status: employed Current occupational exposures/hazards: No Gender identity: Female Cognitive needs: No Hearing needs: No Vision needs: No Physical Exam Vital Signs: Last Vital Signs Pulse 99 11/12/23 08:18 Resp 20 11/12/23 09:08 BP 140/88 H 11/12/23 09:08 Pulse Ox 98 11/12/23 09:08 Oxygen Delivery Method Room Air 11/12/23 09:08 BMI result Body Mass Index 34.0 Assessment & Plan Assessment & Plan (1) Cervical spondylosis: Code(s): M47.812 - Spondylosis without myelopathy or radiculopathy, cervical region (2) Cervicalgia: Code(s): M54.2 - Cervicalgia (3) Postlaminectomy syndrome, cervical: Code(s): M96.1 - Postlaminectomy syndrome, not elsewhere classified (4) Occipital neuralgia: Code(s): M54.81 - Occipital neuralgia (5) Carpal tunnel syndrome: Code(s): G56.00 - Carpal tunnel syndrome, unspecified upper limb Plan: (6) Spondylosis of cervical region without myelopathy or radiculopathy: Code(s): M47.812 - Spondylosis without myelopathy or radiculopathy, cervical region Plan Left C4-C4- C6 -C7 therapeutic medial branch block. ?Informed consent was explained to the patient. All questions were explained and answered.? The patient was taken inside the operating room where she was positioned prone on the operating table. Time-out was performed delineating correct site, side, the nature of the procedure, patient's allergy, preoperative antibiotic if needed.? All operating room staff was participating in OR time-out procedure. The back of the neck and upper back were prepped with ChloraPrep and draped with sterile towels.? Sterilely draped C-arm was brought over the operating field and sq picture of? C4-C5-C6- [id number] were delineated on the screen.? Points of interest were delineated as lateral masseson the left of the vertebrae as above. The waste of each lateral mass was chosen as the target of the tip of the needles on AP view and lateral view was used as a safety view for the tips of the needles position.?? The projections of the point of interest to the skin were injected with the small amount of local anesthetic lidocaine 2% 1-1.5 cc.? After that 22 gauge 3and 1/2 inch? spinal needles were driven to the point of interest in tunnel vision fashion. After needles gently contacted the bone at the point of interests the needle was injected with small amount of the contrast. The injections did not demonstrate intravascular or intrathecal spread.. After that ropivacaine 0.5%-1cc. mixed with kenalog was injected into each location of the needles. ( total dose of Kenalog was 40 mgs).? Upon completion of the injections the needles were removed and sterile dressings were applied, the patient was a taken? outside of the operating room to recovery room where she recovered uneventfully. Orders: Orders FL guidance in treatment room Today M47.812 - Spondylosis without myelopathy or radiculopathy, cervical region Coding Level of Care Code Procedure Only Diagnoses Cervical spondylosis M47.812 Cervicalgia M54.2 Postlaminectomy syndrome, cervical M96.1 Occipital neuralgia M54.81 Carpal tunnel syndrome G56.00 Spondylosis of cervical region without myelopathy or radiculopathy M47.812
[2023-11-12 09:08] VITALS: BP 140/88; RESP 20; O2SAT 98
== END 2023-11-12 09:09 | disposition home or self-care (01) ==
LOC: HO.PMCPRC 08:01
PROVIDERS: PCP Internal Medicine; Visit Provider Anesthesiology
DX: M47.812 Spondylosis without myelopathy or radiculopathy, cervical region (principal)
CPT/HCPCS: 64490; 64491

== ENCOUNTER 2023-11-18 09:03 | Outpatient (AMB) | payer OTHER, SELFPAY ==
--- NOTE | 2023-11-18 09:04 | MHC.OFFVIS ---
Intake Vital Signs 11/18/23 09:14 Height 5 ft 1 in Weight 180 lb BMI 34.0 BP 142/86 H Blood Pressure Location Lt brachial Position Sitting Respiration 16 Pulse 97 Pulse Source Pulse Oximeter Pulse Oximetry (%) 98 Oxygen Delivery Method Room Air Intake Visit Reasons: LEFT DIAGNOSTIC C4,C5,C6,C7 MBB Intake Note: Patient comes in for post-op appointment. Reports pain 02/25. Allergies trazodone [TRAZODONE] Allergy (Intermediate, Verified 11/18/23 09:13) TACHYCARDIA HPI HPI Comments History of Present Illness Details Ashley is back in my office to review the results of her MRI and continuation of care. She is [place]-speaking individual and we did the conversation today with egg and spice mixer from [employer] [facility] [id number]. She is here after diagnostic unilateral left injection in the neck. She reports very minimal pain relief approximately 3 hours after the injection however reports pain coming back very strong very soon after the procedure. Therefore I have to presume that her pain is not coming from the joints. She does not report pain radiating into bilateral upper extremities. Her pain is mostly axial on the left. She had physical therapy after surgery and this was not helpful for her pain. I offered her spinal cord stimulator Nevro, I briefly explained to her the principles of the device. I explained her trial as well as permanent implant. She had posterior foramina anatomy by Dr. Matta which helped her radiculopathy but did not affect the axial pain. Therefore she is suffering from postlaminectomy syndrome. She needs to go for psychological evaluation. I will schedule her for psychological evaluation and after that I will perform a trial of Nevro SCS. The patient wants to be asleep for the trial that is the reason to choose Nevro. She also complains on numbness in bilateral hands especially in the morning. She was in rheumatology office diagnosed with carpal tunnel syndrome. She never was offered any surgery. I told her that I will send her to confirm this diagnosis to the EMG. The very moment she will go for EMG she would need to give me a call and we will schedule her for appointment with orthopedic hand surgeon Dr. Barrios. Prior: She reports that she had surgery with Dr. Matta more than 1 year ago with initial good results. However now she is back in my office with complains on pain in the neck returned. She reports pain in the base of her posterior skull radiating into the occipital area and top of the head. She also reports pain on the left side of the neck radiating down to the left shoulder in the projection of a proximal upper border of trapezius muscle. She reports that she had an EMG with unknown practitioner at [facility], apparently this practitioner immediately after EMG performed what it looks like trigger point injection in the side of the neck. She reports that she had great pain exacerbation after this injection. She reports that her pain is aggravated with neck flexing backwards more than flexing forward she also reports that she is under observation with orthopedic surgeon and most likely will go for carpal tunnel surgery penny. Her MRI was performed before surgery on her neck with Dr. Matta. She complained on pain in the neck which is about 1-year-old which radiates to left upper extremity all the way to the hand and her fingers.? pain is throbbing in nature. She reports weakness in the left wrist.? She is wearing left wrist splint for left hand carpal tunnel.? She is taking tramadol and gabapentin by primary care physician Dr. Stafford? She had the in our shoulder x-ray which is normal left shoulder radiograph.? She had weakness in left upper extremity and awkwardness in movements.? It might be evident of her carpal tunnel syndrome.? [facility] Medical History (Updated 11/18/23 @ 09:37 by Bennie Page MD) Physical exam Constipation Medication monitoring encounter Left foot pain Breast pain Breast discharge Irregular bleeding Right knee pain Left shoulder pain COVID-19 Vaginal discharge Well woman exam with routine gynecological exam Pre-diabetes Pre-op examination Physical exam Osteoarthritis of right knee Right elbow pain Cervical radiculopathy Degeneration, intervertebral disc, cervical Cervical spondylosis Cervicalgia Migraines Class 1 obesity due to excess calories without serious comorbidity with body mass index (BMI) of 30.0 to 30.9 in adult Left shoulder pain Pure hypercholesterolemia Fibromyalgia GERD (gastroesophageal reflux disease) Surgical History H/O colonoscopy H/O laminectomy Hx of tubal ligation History of laparoscopic cholecystectomy Family History Father No problems noted. Mother HX: breast cancer Hypertension Hypercholesterolemia Maternal Grandmother Hypertension Diabetes Family/Other HX: breast cancer Social History Housing: Apartment Alcohol intake: never Patient Tobacco Use Status: Never used Tobacco e-Cigarette/Vaping Use: Never Used Second Hand Smoke Exposure: No service: No Current occupational status: employed Current occupational exposures/hazards: No Gender identity: Female Cognitive needs: No Hearing needs: No Vision needs: No Review of Systems Const All systems reviewed & are unremarkable except as noted in HPI and below ENT Reports Normal hearing present Neuro Reports Normal hearing present, Denies confusion and Denies Sensory deficit (Neuro) Psych Denies confusion Physical Exam Vital Signs: Last Vital Signs Pulse 97 11/18/23 09:14 Resp 16 11/18/23 09:14 BP 142/86 H 11/18/23 09:14 Pulse Ox 98 11/18/23 09:14 Oxygen Delivery Method Room Air 11/18/23 09:14 BMI result Body Mass Index 34.0 Const General: No confusion Orientation/consciousness: No confusion Eyes Pupils: Equal, round and reactive pupils present EOM: EOMs intact bilaterally Chest Chest palpation & inspection: normal inspection of the chest Resp Effort & Inspection: normal respiratory effort, able to speak in complete sentences, normal respiratory pattern, no audible wheezes and no cough Cardio Jugular venous distension: no JVD Back/Spine/Pelvis Other: tenderness on palpation in paraspinal spinal region in cervical spine. Flexing head backwards and forward aggravates her pain. Axial compression on the head aggravates her pain. Objective weakness may exist in the left upper extremity. Neuro General: No confusion Cranial nerves: Yes Equal, round and reactive pupils present and Yes Normal hearing present Sensory Exam: No Sensory deficit (Neuro) Psych Speech and movement: Normal speech and movement present Affect: normal affect Attitude: cooperative Thought process: Normal thought process present Thought content: Normal thought content present Insight: Good insight present (Psych) Judgement: Good judgement present (Psych) Assessment & Plan Assessment & Plan (1) Cervical spondylosis: Code(s): M47.812 - Spondylosis without myelopathy or radiculopathy, cervical region (2) Cervicalgia: Code(s): M54.2 - Cervicalgia (3) Postlaminectomy syndrome, cervical: Code(s): M96.1 - Postlaminectomy syndrome, not elsewhere classified (4) Occipital neuralgia: Code(s): M54.81 - Occipital neuralgia (5) Carpal tunnel syndrome: Code(s): G56.00 - Carpal tunnel syndrome, unspecified upper limb Plan: (6) Spondylosis of cervical region without myelopathy or radiculopathy: Code(s): M47.812 - Spondylosis without myelopathy or radiculopathy, cervical region (7) Chronic pain syndrome: Code(s): G89.4 - Chronic pain syndrome Plan Diagnostic MBB resulted in no pain improvement. At least was not improved to the extent I could consider this injection diagnostic for facet joint arthropathy. Postlaminectomy syndrome mediated pain is presume. I offered patient to treat her with Nevro SCS. Patient agreed to go for the procedure. She does not have computer at home therefore she needs to go for psychological evaluation to this very office. After she is evaluated by Psychology I will do a trial. I need to plan the procedure and for the purpose of planning I will order cervical spine x-ray. Orders: Orders XR cervical spine 5V Today M47.812 - Spondylosis without myelopathy or radiculopathy, cervical region, M54.81 - Occipital neuralgia, M96.1 - Postlaminectomy syndrome, not elsewhere classified Patient Instructions: I here by testify that I spent 37 minutes in conversation with this patient as well as planning her care making appropriate orders and organizing this note. Coding Level of Care Code Est Pt Level 4 (87613) Diagnoses Cervical spondylosis M47.812 Cervicalgia M54.2 Postlaminectomy syndrome, cervical M96.1 Occipital neuralgia M54.81 Carpal tunnel syndrome G56.00 Spondylosis of cervical region without myelopathy or radiculopathy M47.812 Chronic pain syndrome G89.4
[2023-11-18 09:14] VITALS: BP 142/86; PULSE 97; RESP 16; O2SAT 98; BMI 34.0
== END 2023-11-18 09:35 | disposition home or self-care (01) ==
PROVIDERS: PCP Internal Medicine; Visit Provider Anesthesiology
DX: M47.812 Spondylosis without myelopathy or radiculopathy, cervical region (principal); M54.2 Cervicalgia; M96.1 Postlaminectomy syndrome, not elsewhere classified; M54.81 Occipital neuralgia; G56.00 Carpal tunnel syndrome, unspecified upper limb; G89.4 Chronic pain syndrome
CPT/HCPCS: 99214

== ENCOUNTER → 2023-11-18 09:03 | Outpatient (BNVA) | payer OTHER, SELFPAY | PROVIDERS: PCP Internal Medicine; Visit Provider Anesthesiology | DX: M47.812 Spondylosis without myelopathy or radiculopathy, cervical region (principal); M54.81 Occipital neuralgia; M96.1 Postlaminectomy syndrome, not elsewhere classified; G56.03 Carpal tunnel syndrome, bilateral upper limbs; G89.4 Chronic pain syndrome | CPT/HCPCS: 99212 ==

== ENCOUNTER 2024-01-06 12:33 | Outpatient (AMB) | payer OTHER, SELFPAY ==
--- NOTE | 2024-01-06 13:24 | A.OFFVIS_ITS ---
Intake Visit Reasons: New Pt - B/L hand numbness/pain Intake Note: Ashley is a 53 year old right hand dominant female who presents today as a new patient for her bilateral hand numbness and pain. EMG done one 10/18/23. Patient reports that her left hand is worse than the right. State CTS started about 6 months ago and has worsen over time. Her symptoms are worse at night time and in the mornings. She wears a brace which helps very little. Allergies trazodone [TRAZODONE] Allergy (Intermediate, Verified 01/06/24 13:27) TACHYCARDIA HPI HPI New Pt - B/L hand numbness/pain: Details: 53-year-old right hand dominant female, who is Brazilian speaking, presents in the office today for an evaluation of bilateral upper extremity numbness and tingling. She states the left hand is worse than the right hand. While in the office today, the patient reports pain has been present for over 6 months. She reports numbness and tingling throughout the entire left hand that has increased over time. She states her symptoms are worse at night and in the morning. She confirms the use of a brace with little relief. Patient reports numbness on the top of her hand and on the palm. She reports her symptoms are intermittent. Patient has an allergy history, as follows: - Trazodone; tachycardia Patient is currently taking, as follows: -Atorvastatin 10 mg PO bedtime -Cromolyn 4% 1 drop ophthalmic 6XD -Cyclobenzaprine 5 mg PO TID PRN -Gabapentin 400 mg PO TID -Hydrocortisone 2.5% topical BID PRN -Loratadine 10 mg PO Daily -Losartan 25 mg PO daily -Meloxicam 15 mg PO Daily -Mirtazapine 15 mg PO Bedtime -Omeprazole 40 mg PO QAM -Oxybutynin chloride 5 mg PO Bedtime PRN -Propranolol 20 mg PO Daily -Psyllium husk 0.8 grams PO Bedtime -Ropinirole 0.5 mg PO bedtime -Tramadol 50 mg PO TID PRN Patient has a medical history, as follows: -Hypertension -Occipital neuralgia -Hyperkalemia -Hemorrhoids -Stress incontinence -Myofascial pain -Mild recurrent major depression -Cervicalqia -Migraines -Obesitiy -Hypercholesterolemia -Fibromyalgia -GERD -Constipation Patient has a surgical history, as follows: -H/O colonoscopy -H/O laminectomy; Left posterior C4 foraminotomy September 2021 -Hx of tubal ligation -History of laparoscopic cholecystectomy Patient has a social history, as follows: -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[employer] [facility] Medical History (Updated 01/06/24 @ 14:32 by Cate Martinez) Physical exam Constipation Medication monitoring encounter Left foot pain Breast pain Breast discharge Irregular bleeding Right knee pain Left shoulder pain COVID-19 Vaginal discharge Well woman exam with routine gynecological exam Pre-diabetes Pre-op examination Physical exam Osteoarthritis of right knee Right elbow pain Cervical radiculopathy Degeneration, intervertebral disc, cervical Cervical spondylosis Cervicalgia Migraines Class 1 obesity due to excess calories without serious comorbidity with body mass index (BMI) of 30.0 to 30.9 in adult Left shoulder pain Pure hypercholesterolemia Fibromyalgia GERD (gastroesophageal reflux disease) Surgical History H/O colonoscopy H/O laminectomy Hx of tubal ligation History of laparoscopic cholecystectomy Family History Father No problems noted. 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 Current occupational exposures/hazards: No Gender identity: Female Cognitive needs: No Hearing needs: No Vision needs: No Review of Systems Const All systems reviewed & are unremarkable except as noted in HPI and below Physical Exam Const General: cooperative, healthy appearing and no acute distress Orientation/consciousness: patient oriented x3 HEENT Head: Yes normocephalic and Yes atraumatic Eyes EOM: EOMs intact bilaterally Resp Effort & Inspection: normal respiratory effort and able to speak in complete sentences Cardio Jugular venous distension: no JVD Skin General skin exam: turgor normal Rashes: no rashes Neuro General: patient oriented x3 Extrem Other: Left upper extremity: Normal to inspection. No ecchymosis, erythema, or edema. Able to perform full finger flexion, extension, abduction, adduction, finger cross, and thumbs up without deficit. Flat okay sign. Able to make a closed fist. Negative Tinel?s. Sensation intact. Capillary refill is brisk. Radial pulse intact. Assessment & Plan Assessment & Plan (1) Left carpal tunnel syndrome: Code(s): G56.02 - Carpal tunnel syndrome, left upper limb Category: Medical Plan Ms. José Luis Portillo is a 53-year-old right hand dominant female, who is Brazilian speaking, presents in the office today for an evaluation of bilateral upper extremity numbness and tingling. She states the left hand is worse than the right hand. While in the office today, the patient reports pain has been present for over 6 months. She reports numbness and tingling throughout the entire left hand that has increased over time. She states her symptoms are worse at night and in the morning. She confirms the use of a brace with little relief. Patient reports numbness on the top of her hand and on the palm. She reports her symptoms are intermittent. Patient has an allergy history, as follows: - Trazodone; tachycardia Patient is currently taking, as follows: -Atorvastatin 10 mg PO bedtime -Cromolyn 4% 1 drop ophthalmic 6XD -Cyclobenzaprine 5 mg PO TID PRN -Gabapentin 400 mg PO TID -Hydrocortisone 2.5% topical BID PRN -Loratadine 10 mg PO Daily -Losartan 25 mg PO daily -Meloxicam 15 mg PO Daily -Mirtazapine 15 mg PO Bedtime -Omeprazole 40 mg PO QAM -Oxybutynin chloride 5 mg PO Bedtime PRN -Propranolol 20 mg PO Daily -Psyllium husk 0.8 grams PO Bedtime -Ropinirole 0.5 mg PO bedtime -Tramadol 50 mg PO TID PRN Patient has a medical history, as follows: -Hypertension -Occipital neuralgia -Hyperkalemia -Hemorrhoids -Stress incontinence -Myofascial pain -Mild recurrent major depression -Cervicalqia -Migraines -Obesitiy -Hypercholesterolemia -Fibromyalgia -GERD -Constipation Patient has a surgical history, as follows: -H/O colonoscopy -H/O laminectomy; Left posterior C4 foraminotomy September 2021 -Hx of tubal ligation -History of laparoscopic cholecystectomy Patient has a social history, as follows: -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 We discussed the risks, benefits and alternatives to the surgery and the rehabilitation course. The risks include infection, bleeding, nerve injury, ongoing pain, swelling, and stiffness, perioperative risk of injury to bones and soft tissues, and blood clots. I have answered all questions and with their understanding they have consented to move forward with a left carpal tunnel release to be performed by Dr. Charlotte Barrios. Follow-up will be at the post operative appointment, or sooner if needed. EMG study of the left upper extremity, obtained on 10/18/2023, revealed: 1. This is an abnormal study. 2. There is electrodiagnostic evidence for left moderate-severe and right mild median neuropathy at the wrist, consistent with carpal tunnel syndrome. 3. There is no electrodiagnostic evidence for ulnar neuropathy, brachial plexopathy, or cervical radiculopathy. Patient Instructions: Scribed by Cate Martinez manager medical device, for Constanza Jeffery PA-C on 01/06/2024 at 12:51 pm, EST. Coding Level of Care Code Est Pt Level 4 (88926) Diagnoses Left carpal tunnel syndrome G56.02
== END 2024-01-06 13:52 | disposition home or self-care (01) ==
PROVIDERS: PCP Internal Medicine; Visit Provider Physician Assistant
DX: G56.02 Carpal tunnel syndrome, left upper limb (principal)
CPT/HCPCS: 99214

== ENCOUNTER → 2024-01-06 12:33 | Outpatient (BNVA) | payer OTHER, SELFPAY | PROVIDERS: PCP Internal Medicine; Visit Provider Physician Assistant | DX: G56.02 Carpal tunnel syndrome, left upper limb (principal) | CPT/HCPCS: 99212 ==

== ENCOUNTER 2024-02-10 09:39 | Day surgery (SDC) | payer OTHER, SELFPAY ==
--- NOTE | 2024-02-10 12:02 | MHC.SHP ---
Pre-Procedural Eval Section A - 24 Hr Update-Section A only Date of Service: 02/10/24 The patient is an INPATIENT: No Changes since office visit: No Cold of Flu in the past 2 weeks, No New Medical Problems, No Changes in Medication and No Patient answered all questions Section B - Complete if H&P > 30 days Chief Complaint: Carpal tunnel syndrome, left upper limb Allergies: Allergies Allergy/AdvReac Type Severity Reaction Status Date / Time trazodone [TRAZODONE] Allergy Intermediate TACHYCARDIA Verified 01/06/24 13:27 Exam Exam Comment: Left carpal tunnel syndrome Plan Diagnosis/Plan: Unchanged I have reviewed the history and physical and performed a pertinent physical examination on my patient. No changes have occurred unless specified. Time Spent With Patient Time: Total time managing care of this patient today ____ minutes.
--- NOTE | 2024-02-10 12:02 | W.PM.OPN ---
Operative Note Operative Note Date of Service: 02/10/24 Narrative: Preop diagnosis: 1. Left Carpal tunnel syndrome Postop diagnosis: same Procedure: 1. Left Carpal tunnel release Surgeon: Charlotte Barrios MD Anesthesia: local block using 1% lidocaine with epinephrine Findings: Thickened transverse carpal ligament. EBL: Less than 5 mL Specimens: None Complications: None Disposition: Brought to recovery room in stable condition Plan: Follow-up for 10-14 days for wound check and suture removal Indications: The patient is 53 years old, with left carpal tunnel syndrome that has been unresponsive to nonoperative management. The risks and benefits of operative treatment including but not limited to risk of damage to blood vessels, nerves, tendons, infection, persistent pain, persistent symptoms, or possible need for additional surgery were discussed with the patient and the patient wishes to proceed with surgery. Procedure: Once consent was obtained a local block was performed using a combination of 1% lidocaine with epinephrine. The patient was then brought back to the operating suite and placed on the operative table in supine position. The left upper extremity was prepped and draped in a standard surgical fashion. Once assured that we had a good block, a 2.0 cm longitudinal incision was made centered over the carpal tunnel. The incision was made through the skin to the subcutaneous tissues using a #15 blade. Dissection was made down to the level of the transverse carpal ligament with care being taken to protect the palmar cutaneous nerve. Once the transverse carpal ligament was clearly visualized, a longitudinal incision was made in the transverse carpal ligament 1st using a #15 blade, then using tenotomy scissors under direct visualization. Care was taken to look for and protect the motor branch of the median nerve when seen in this area. Once satisfied with our carpal tunnel release the wound was copiously irrigated with normal saline and hemostasis was obtained with a brief period of local pressure. The skin edges were reapproximated with some 5.0 nylon suture material and a sterile dressing was applied. The patient appears to have tolerated the procedure well and with no complications. All digits were well vascularized at the conclusion of the case.
[2024-02-10 12:05] VITALS: BMI 34.5
[2024-02-10 13:30] VITALS: BP 161/82; PULSE 79; RESP 18; O2SAT 96
== END 2024-02-10 13:50 | disposition home or self-care (01) ==
PROVIDERS: PCP Internal Medicine; Visit Provider Orthopaedic Surgery
PROC: (CPT 64721; principal; 2024-02-10 12:10)
DX: G56.02 Carpal tunnel syndrome, left upper limb (principal); R20.0 Anesthesia of skin; R20.2 Paresthesia of skin; M79.642 Pain in left hand; M54.12 Radiculopathy, cervical region; M79.7 Fibromyalgia; E87.5 Hyperkalemia; M25.512 Pain in left shoulder; I10 Essential (primary) hypertension; E78.00 Pure hypercholesterolemia, unspecified; F33.0 Major depressive disorder, recurrent, mild; Z68.30 Body mass index [BMI] 30.0-30.9, adult; E66.9 Obesity, unspecified; Z79.899 Other long term (current) drug therapy; Z88.8 Allergy status to other drugs, medicaments and biological substances
CPT/HCPCS: 64721; J0171

== ENCOUNTER → 2024-02-10 09:39 | Outpatient (BNV) | payer OTHER, SELFPAY | PROVIDERS: PCP Internal Medicine; Visit Provider Orthopaedic Surgery | DX: G56.02 Carpal tunnel syndrome, left upper limb (principal) | CPT/HCPCS: 64721 ==

== ENCOUNTER 2024-02-12 08:02 | Outpatient (AMB) | payer OTHER, SELFPAY ==
[2024-02-12 08:04] VITALS: BP 128/86; BMI 35.0
--- NOTE | 2024-02-12 08:04 | MHC.PC.OV ---
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 Required: No Accompanied by: Spouse Allergies trazodone [TRAZODONE] Allergy (Intermediate, Verified 02/12/24 08:23) TACHYCARDIA Medication List - Last Reconciled 02/12/24 by Eugenia Whyte MD atorvastatin 10 mg PO BEDTIME 90 days blood pressure monitor As directed cromolyn 4% 1 drp ophthalmic (eye) 6XD 7 days cyclobenzaprine 5 mg PO TID PRN 7 days gabapentin 400 mg PO TID hydrocortisone 2.5% (Proctosol HC) 1 appl MO BID PRN loratadine (Allergy Relief (loratadine)) 10 mg PO DAILY 90 days losartan 25 mg PO DAILY 90 days meloxicam 15 mg PO DAILY 90 days mirtazapine (Remeron) 15 mg PO BEDTIME 90 days omeprazole 40 mg PO QAM 90 days oxybutynin chloride 5 mg PO BEDTIME PRN 30 days oxycodone-acetaminophen 5-325 mg 1 tab PO Q6H PRN propranolol 20 mg PO DAILY 90 days psyllium husk (Reguloid (psyllium husk)) 0.8 grams (2 x 0.4 gram) PO BEDTIME ropinirole 0.5 mg PO BEDTIME 90 days tramadol 50 mg PO TID PRN [Wrist splint Wear nightly & as much as possible throughout the day] Tobacco use date assessed: 02/12/24 Dental Screening Dental Screen Date: 02/12/24 Did you have a dental visit in the last 12 months?: Yes Did you have a dental problem in the last 6 months where you did not have access to dental care?: No Was dental information given to patient?: Patient has dentist HPI HPI Comments History of Present Illness Details This is a 53-year-old female with hypertension, pure hypercholesterolemia, GERD and mild recurrent major depression that comes accompanied by significant other complaining of difficulty swallowing solids that started over 3 months ago. She has actually increase her weight. Will order barium swallow and refer her to Gastroenterology for this matter. Blood pressure stable. Lipid panel will be order. GERD stable with PPIs. Depression has been well control with mirtazapine. No chest pain or shortness on breath. Patient had recent left carpal tunnel repair in 02/10/2024 and was advised that if she is using oxycodone to not take tramadol. She was also advised to let me know if any other physician is prescribing any controlled substance for her. [facility] Medical History (Updated 02/12/24 @ 09:01 by Eugenia Whyte MD) Physical exam Constipation Medication monitoring encounter Left foot pain Breast pain Breast discharge Irregular bleeding Right knee pain Left shoulder pain COVID-19 Vaginal discharge Well woman exam with routine gynecological exam Pre-diabetes Pre-op examination Physical exam Osteoarthritis of right knee Right elbow pain Cervical radiculopathy Degeneration, intervertebral disc, cervical Cervical spondylosis Cervicalgia Migraines Class 1 obesity due to excess calories without serious comorbidity with body mass index (BMI) of 30.0 to 30.9 in adult Left shoulder pain Pure hypercholesterolemia Fibromyalgia GERD (gastroesophageal reflux disease) Surgical History Left carpal tunnel syndrome H/O colonoscopy H/O laminectomy Hx of tubal ligation History of laparoscopic cholecystectomy Family History Father No problems noted. Mother HX: breast cancer Hypertension Hypercholesterolemia Maternal Grandmother Hypertension Diabetes Family/Other HX: breast cancer Social History Housing: Apartment Alcohol intake: never Patient Tobacco Use Status: Never used Tobacco e-Cigarette/Vaping Use: Never Used Second Hand Smoke Exposure: No service: No Current occupational status: employed Current occupation: [employer]/ right hand dominant Current occupational exposures/hazards: No Gender identity: Female Cognitive needs: No Hearing needs: No Vision needs: No Questionnaire PHQ-9 Over the last 2 weeks, how often have you been bothered by any of the following problems? 1. Little interest or pleasure in doing things: not at all 2. Feeling down, depressed, or hopeless: not at all 3. Trouble falling or staying asleep, or sleeping too much: not at all 4. Feeling tired or having little energy: not at all 5. Poor appetite or overeating: not at all 6. Feeling bad about yourself - or that you are a failure or have let yourself or your family down: not at all 7. Trouble concentrating on things, such as reading the newspaper or watching television: not at all 8. Moving or speaking so slowly that other people could have noticed. Or the opposite - being so fidgety or restless that you have been moving around a lot more than usual: not at all 9. Thoughts that you would be better off or of hurting yourself in some way: not at all Total score: 0 Depression Screening Interpretation: Negative Depression Screening Done: Yes 98242 - PHQ-9 Billing: Yes Source: Developed by Drs. Kishor Chavira, Janet Graff, Tae Paz and colleagues, with an educational kelley from [employer]. Thrive Questionnaire Date Thrive assessed: 02/12/24 I am a: Patient What is your living situation today?: I have a steady place to live Within the past 12 months, did the food you bought not last and you didn't have the money to get more?: Never true Within the past 12 months, did you worry whether your food would run out before you got money to buy more?: Never true Do you have trouble paying for medicines?: No Do you have trouble getting transportation to medical appointments?: No Do you have trouble paying your heating and electricity bill?: No Do you have trouble taking care of your child, family member or friend?: No Do you have trouble with day-to-day activities such as bathing, preparing meals, shopping, managing finances, etc.?: No Are you currently unemployed and looking for a job?: No Are you interested in more education?: No Please select the resources that you would like help with: None Currently or been in a relationship where the following occur: no concerns reported THRIVE Score: 0 AUDIT C Alcohol Use Questionnaire (AUDIT-C) 1. How often do you have a drink containing alcohol?: Never Total Score: 0 Score Reviewed/Action Taken: No SABI-7 AMB Questionnaire SABI-7 Date SABI - 7 assessed: 02/12/24 Feeling nervous, anxious, or on edge: 0 = Not at all Not being able to stop or control worryin = Not at all Worrying too much about different things: 0 = Not at all Trouble relaxin = Not at all Being so restless that it is hard to sit still: 0 = Not at all Becoming easily annoyed or irritable: 0 = Not at all Feeling afraid as if something awful might happen: 0 = Not at all Total SABI-7 score (0-4 normal; 5-9 mild; 10-14 moderate; 15-21 severe): 0 Source: Developed by Drs. Kishor Chavira, Janet Graff, Tae Paz and colleagues, with an educational kelley from [employer]. SABI-7 Assessment Billing SABI-7 Assessment Tool: SABI-7 Assessment 12893 Review of Systems Const All systems reviewed & are unremarkable except as noted in HPI and below ENT Reports dysphagia Card Denies chest pain at rest, Denies chest pain with activity, Denies edema, Denies irregular heart rhythm, Denies claudication, Denies dyspnea, Denies dyspnea on exertion, Denies orthopnea, Denies paroxysmal nocturnal dyspnea and Denies slow heart rate Resp Denies cough, Denies dyspnea and Denies dyspnea on exertion GI Reports dysphagia Physical exam (Primary Care) Vital Signs: Last Vital Signs BP 128/86 02/12/24 08:04 BMI result Body Mass Index 35.0 Tobacco/Smoking Status: Tobacco use Status Tobacco use date assessed 02/12/24 02/12/24 08:12 Patient Tobacco Use Status Never used Tobacco 02/12/24 08:12 e-Cigarette/Vaping Use Never Used 02/12/24 08:12 PHQ-9: PHQ-9 Score PHQ-9: Total score 0 02/12/24 08:29 Depression Screening Interpretation: Negative Thrive Assessment: Date of Thrive Assessment Date Thrive assessed 02/12/24 02/12/24 08:12 Currently or been in a relationship where the following occur: no concerns reported Resp Effort & Inspection: normal respiratory effort Auscultation: clear to auscultation bilaterally Cardio Jugular venous distension: no JVD Rate: regular rate Rhythm: regular rhythm Heart sounds: S1 normal heart sound present and S2 normal heart sound present Assessment and Plan Assessment & Plan (1) Dysphagia: Code(s): R13.10 - Dysphagia, unspecified Qualifiers: Dysphagia type: pharyngeal phase Qualified Code(s): R13.13 - Dysphagia, pharyngeal phase Plan: Barium swallow ordered. Referred to Gastroenterology. (2) Essential hypertension: Code(s): I10 - Essential (primary) hypertension Plan: Continue losartan. Blood pressure goal is equal or less than 130/80. (3) Mild recurrent major depression: Code(s): F33.0 - Major depressive disorder, recurrent, mild Plan: Continue mirtazapine. (4) Pure hypercholesterolemia: Code(s): E78.00 - Pure hypercholesterolemia, unspecified Plan: Continue statins. Repeat lipid panel. Advised to follow a low-cholesterol diet. (5) GERD (gastroesophageal reflux disease): Code(s): K21.9 - Gastro-esophageal reflux disease without esophagitis Qualifiers: Esophagitis presence: without esophagitis Qualified Code(s): K21.9 - Gastro-esophageal reflux disease without esophagitis Plan: Continue PPIs. Orders: Orders [place] barium swallow Today R13.10 - Dysphagia, unspecified Lipid Panel Today E78.5 - Hyperlipidemia, unspecified Comprehensive [place]. Panel Fast Today I10 - Essential (primary) hypertension Referrals Gastroenterology Referral R13.10 - Dysphagia, unspecified Medications: Refilled omeprazole 40 mg PO QAM 90 caps 3RF 90 days Coding Level of Care Code Est Pt Level 4 (18140) Complex EM visit Add On G2211 Diagnoses Pharyngeal dysphagia R13.13 Dysphagia type: pharyngeal phase Essential hypertension I10 Mild recurrent major depression F33.0 Pure hypercholesterolemia E78.00 Gastroesophageal reflux disease without esophagitis K21.9 Esophagitis presence: without esophagitis Additional Codes SABI-7 Assessment Billing - SABI-7 Assessment Tool: SABI-7 Assessment 93020 ([id number]) Time Spent (min) 22
== END 2024-02-12 08:33 | disposition home or self-care (01) ==
PROVIDERS: PCP Internal Medicine; Visit Provider Internal Medicine
DX: E78.00 Pure hypercholesterolemia, unspecified (principal); R13.13 Dysphagia, pharyngeal phase; I10 Essential (primary) hypertension; F33.0 Major depressive disorder, recurrent, mild; K21.9 Gastro-esophageal reflux disease without esophagitis
CPT/HCPCS: 99214; G2211

== ENCOUNTER 2024-02-25 13:47 | Outpatient (AMB) | payer OTHER, SELFPAY ==
[2024-02-25 13:49] VITALS: BMI 35.0
--- NOTE | 2024-02-25 13:49 | A.OFFVIS_ITS ---
Vital Signs 02/25/24 13:49 Height 5 ft 1 in Weight 185 lb BMI 35.0 Intake Visit Reasons: PO LT CTR 02/10/24 AR Intake Note: Ashley is a 53 yr old female who presents today for a PO for LT CTR. Pt reports bruising, firmness, and tenderness around the incision. Grain I Farmworker Required: Yes Grain I Farmworker Language: Spark Tester Services: Grain I Farmworker Present Grain I Farmworker Name: Mason RMA/LM Allergies trazodone [TRAZODONE] Allergy (Intermediate, Verified 02/25/24 13:50) TACHYCARDIA HPI HPI PO LT CTR 02/10/24 AR: Details: Patient is a 53-year-old female who presents for postoperative follow-up for left carpal tunnel release DOS 02/10/2024. Today, the patient reports that she is doing all right, but she is still experiencing significant amounts of pain at the incision site. Patient reports that swelling has gone down significantly, but that she has a small amount of ecchymosis also surrounding the incision. She reports no active discharge this time. Patient notes no erythema at this time. Patient also expresses some concern about stiffness in her left PFSH Medical History Physical exam Constipation Medication monitoring encounter Left foot pain Breast pain Breast discharge Irregular bleeding Right knee pain Left shoulder pain COVID-19 Vaginal discharge Well woman exam with routine gynecological exam Pre-diabetes Pre-op examination Physical exam Osteoarthritis of right knee Right elbow pain Cervical radiculopathy Degeneration, intervertebral disc, cervical Cervical spondylosis Cervicalgia Migraines Class 1 obesity due to excess calories without serious comorbidity with body mass index (BMI) of 30.0 to 30.9 in adult Left shoulder pain Pure hypercholesterolemia Fibromyalgia GERD (gastroesophageal reflux disease) Surgical History Left carpal tunnel syndrome H/O colonoscopy H/O laminectomy Hx of tubal ligation History of laparoscopic cholecystectomy Family History Father No problems noted. 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 Neuro: Median, ulnar, radial nerves motor and sensory intact and sensation is normal to the tips of all digits. Vascular: Cap refill brisk Pain: Patient reports tenderness to palpation and around incision site are left hand ROM: Patient able to make a closed fist with encouragement Patient reports discomfort with extension of the wrist, but all other range of motion of the wrist is full and intact Skin: Well-healing incision site on the volar left wrist. Sutures removed and Steri- Strips in place. General: Mild ecchymosis about the incision site No erythema or evidence of infection. Psych: Appears grossly normal Affect normal Attitude cooperative Psych Appearance: grossly normal Mental Status: mental status grossly normal Assessment & Plan Assessment & Plan (1) Left carpal tunnel syndrome: Code(s): G56.02 - Carpal tunnel syndrome, left upper limb Category: Surgical Plan 1. Left carpal tunnel syndrome, status post carpal tunnel release DOS 02/10/24 Patient is doing well postoperatively Patient is educated about the typical postoperative course For incision site pain and discomfort, it is recommended that the patient massage around the surgical site, and when Steri-Strips are removed in 5 days, s he can begin to massage over the incision site. Patient is also educated to take Tylenol if she needs to for incision site pain Patient will follow-up in 2 weeks for pain assessment, potential referral to occupational therapy if the patient is still experiencing significant pain at around the incision site, sooner with any acute concerns Coding Level of Care Code Global (59546) Diagnoses Left carpal tunnel syndrome G56.02
== END 2024-02-25 14:06 | disposition home or self-care (01) ==
PROVIDERS: PCP Internal Medicine
DX: G56.02 Carpal tunnel syndrome, left upper limb (principal)
CPT/HCPCS: 99024

== ENCOUNTER → 2024-02-25 13:47 | Outpatient (BNVA) | payer OTHER, SELFPAY | PROVIDERS: PCP Internal Medicine; Visit Provider Orthopaedic Surgery | DX: Z47.89 Encounter for other orthopedic aftercare (principal); Z98.890 Other specified postprocedural states | CPT/HCPCS: 99212 ==

== ENCOUNTER 2024-03-10 12:57 | Outpatient (AMB) | payer OTHER, SELFPAY ==
[2024-03-10 13:10] VITALS: BMI 35.0
--- NOTE | 2024-03-10 13:10 | A.OFFVIS_ITS ---
Vital Signs 03/10/24 13:10 Height 5 ft 1 in Weight 185 lb BMI 35.0 Intake Visit Reasons: PO LT CTR 02/10/24 AR Intake Note: Ashley is a 53 yr old female who presents today for a PO for left CTR. Patient reports on and off tenderness around the incision. Has had episodes of pain left wrist pain radiating up the forearm. Has also been experiencing pain on top of the left hand and the lateral aspect of the left pinky finger. Has had 2 episodes of numbness and tingling that have gone away within seconds. Denies limited ROM. Contact Acid Plant Operator Helper Required: Yes Contact Acid Plant Operator Helper Language: Diagnostics Tech Services: Contact Acid Plant Operator Helper Present Contact Acid Plant Operator Helper Name: Mason VANESSA/JAYRO Information Interpreted: non-clinical & clinical Allergies trazodone [TRAZODONE] Allergy (Intermediate, Verified 03/10/24 13:12) TACHYCARDIA HPI HPI PO LT CTR 02/10/24 AR: Details: Patient is a 53-year-old female who presents for 4 week postop appointment, status post carpal tunnel release on 02/10/2024. Today, the patient reports that she is doing very well for the most part, but she reports occasional pain in the left ulnar wrist radiating up into the small finger and down into the left forearm. no other acute complaints or concerns at this time. Patient reports that she has full range of motion at both her left wrist and hand [facility] Medical History Physical exam Constipation Medication monitoring encounter Left foot pain Breast pain Breast discharge Irregular bleeding Right knee pain Left shoulder pain COVID-19 Vaginal discharge Well woman exam with routine gynecological exam Pre-diabetes Pre-op examination Physical exam Osteoarthritis of right knee Right elbow pain Cervical radiculopathy Degeneration, intervertebral disc, cervical Cervical spondylosis Cervicalgia Migraines Class 1 obesity due to excess calories without serious comorbidity with body mass index (BMI) of 30.0 to 30.9 in adult Left shoulder pain Pure hypercholesterolemia Fibromyalgia GERD (gastroesophageal reflux disease) Surgical History Left carpal tunnel syndrome H/O colonoscopy H/O laminectomy Hx of tubal ligation History of laparoscopic cholecystectomy Family History Father No problems noted. 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 Neuro: Median, ulnar, radial nerves motor and sensory intact and sensation is normal to the tips of all digits. Vascular: Cap refill brisk Pain: Patient reports tenderness to palpation of the ulnar aspect of the wrist. No other pain or tenderness to palpation at this time ROM: Range of motion about the left wrist and hand full and intact Skin: Well-healed incision on the volar aspect of the left wrist, no erythema, edema, drainage, or other evidence of infection. General: No ecchymosis, erythema, or evidence of infection. Psych: Appears grossly normal Affect normal Attitude cooperative Assessment & Plan Assessment & Plan (1) Left carpal tunnel syndrome: Code(s): G56.02 - Carpal tunnel syndrome, left upper limb Category: Surgical (2) Pain of ulnar side of wrist: Code(s): M25.539 - Pain in unspecified wrist Category: Medical Plan 1. Left carpal tunnel syndrome status post carpal tunnel release DOS 02/10/2024 Patient is recovering well postoperatively Patient is educated about the typical recovery course At this time, the patient is informed that she can begin to resume normal activity Patient is educated that she can return to work as tolerated No concerns for stiffness in the left hand at this time Patient to follow-up p.r.n. with any acute concerns 2. Left ulnar-sided wrist pain Ongoing since DOS Patient reports that the pain worsens when she attempts to lift things or grasp things Muscle or tendon pathology suspected Patient referred to occupational hand therapy for strengthening, range of motion of the left wrist If patient is not noticing any improvement in 4-6 weeks, she is told that she can call and make an appointment Coding Level of Care Code Global (27942) Diagnoses Left carpal tunnel syndrome G56.02 Pain of ulnar side of wrist M25.539
== END 2024-03-10 13:48 | disposition home or self-care (01) ==
PROVIDERS: PCP Internal Medicine
DX: G56.02 Carpal tunnel syndrome, left upper limb (principal); M25.539 Pain in unspecified wrist
CPT/HCPCS: 99024

== ENCOUNTER → 2024-03-10 12:57 | Outpatient (BNVA) | payer OTHER, SELFPAY | PROVIDERS: PCP Internal Medicine | DX: Z09 Encounter for follow-up examination after completed treatment for conditions other than malignant neoplasm (principal); M25.532 Pain in left wrist | CPT/HCPCS: 99212 ==

== ENCOUNTER 2024-04-07 11:44 | Outpatient (AMB) | payer OTHER, SELFPAY ==
--- NOTE | 2024-04-07 11:45 | A.OFFVIS_ITS ---
Vital Signs 04/07/24 11:55 Height 5 ft 1 in Weight 179 lb 7.3 oz BMI 33.9 Intake Visit Reasons: Dysphagia Intake Note: Ashley presents to in office today for dysphagia. CC: Patient c/o feeling that the food and pills stay stuck in her throat. She also reports having to sleep elevated because she feels chocking when laying flat. 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 The procedure was well tolerated.? The results were explained and the patient is agreeable to the follow-up interval as stated.? The bowel pattern has returned to normal, but her normal involves CIC.? Education was provided to tell any 1st degree relatives about their findings to be sure that they are screened by age 45.? Educated that they will be put on a recall list when it is time for their repeat scope but should they move out of state or away from the hospital they will need to remember along with their primary to repeat the procedure in a timely fashion to avoid any adverse complications. She has trouble with CIC from time, she will move her bowels daily for about 4 days, then not be able to have a BM for 2 days. I suggest that she start a fiber supplement, I will try to send fiber tablets. We will titrate from there. She is having some rectal irritation and says she has noted roids that occurred after giving and fr om time to time, then they flatten out. I will send a roid cream. ROV 6 weeks. (2) Hemorrhoids: ?Code(s): K64.9 - Unspecified hemorrhoids ? ? ? Medications: New psyllium husk (Fiber Therapy Laxative (psyllium husk)) 1.04 grams (2 x 0.52 gram) PO BEDTIME 60 caps 3RF K59.00 - Constipation, unspecified ? hydrocortisone 2.5% (Proctosol HC) 1 appl? [place] BID PRN 30 grams 3RF hemorrhoids K64.9 - Unspecified hemorrhoids ?Patient Instructions: Ashley Rodriguez Suplementos de fibra de venta carleen: Dinesh, Rubi son los mejores porque se disuelven en agua y no se pueden saborear y no se espesan. Las marcas gen?ricas/de la toyin est?n jered para ahorrar dinero. TODAY'S VISIT Afghan #[id number] Patient has been lost to follow-up since 10/2022 She has a new problem of dysphagia. Solid foods and pills get stuck in the early nilda pharyngeal area. She has to sit up because otherwise I feel like I'm drowning. This happens with solid foods and pills, she has no trouble with liquids. THere are no new medications or illness preceding this. THe feeling of not being able to breath is alleviated if she turns her head on an angle, and she only occasionally has the feeling of actual regurgitation from the stomach. I'm uncertain if this is a variation of a globus sensation or another problem. She suffers CIC which she has treated in the past with fiber pills, but it is no helping much. I think we need to treat this to alleviate GERD. She has used senna in the past with good effect, she dislikes liquids like Mirlalz and MOM. She is on omeprazole 40mg qd which I will increase to bid. She says that when she was in [place] she had an episode of vomiting and they told me that something in my throat ruptured, and if it happened again they may need to do surgery. ? tonsils. She has gained some weight recently. She was unaware of her barium swallow on 04/22, so I encourage her to keep this. Will also get EGD. ROV 6 weeks. COUNT INCLUDES THE [facility] Medical History (Updated 04/07/24 @ 12:34 by QUINTEN Oro) Constipation Cervical spondylosis Cervical radiculopathy Hyperkalemia Carpal tunnel syndrome Physical exam Cervical paraspinal muscle spasm Physical exam Right elbow pain Cervicalgia Medication monitoring encounter Left foot pain Breast pain Breast discharge Irregular bleeding Right knee pain Left shoulder pain COVID-19 Vaginal discharge Well woman exam with routine gynecological exam Pre-diabetes Pre-op examination Osteoarthritis of right knee Degeneration, intervertebral disc, cervical Migraines Class 1 obesity due to excess calories without serious comorbidity with body mass index (BMI) of 30.0 to 30.9 in adult Left shoulder pain Pure hypercholesterolemia Fibromyalgia GERD (gastroesophageal reflux disease) Surgical History Left carpal tunnel syndrome H/O colonoscopy H/O laminectomy Hx of tubal ligation History of laparoscopic cholecystectomy Family History Father No problems noted. Mother HX: breast cancer Hypertension Hypercholesterolemia Maternal Grandmother Hypertension Diabetes Family/Other HX: breast cancer Social History Housing: Apartment Alcohol intake: never Patient Tobacco Use Status: Never used Tobacco e-Cigarette/Vaping Use: Never Used Second Hand Smoke Exposure: No service: No Current occupational status: employed Current occupation: [employer]/ right hand dominant Current occupational exposures/hazards: No Gender identity: Female Cognitive needs: No Hearing needs: No Vision needs: No Review of Systems Const Denies fatigue, Denies fever(s), Denies night sweats, Denies poor appetite, Reports weight gain and Denies weight loss ENT Reports Normal hearing present, Denies dental pain, Reports dysphagia, Denies hearing loss, Denies mouth pain, Denies odynophagia, Denies throat swelling, Denies tongue swelling and Reports other (Dentition adequate) Card Reports no additional complaints Resp Reports no additional complaints GI Details: Denies abdominal pain, Denies melena, Denies bloating, Denies hematochezia, Reports constipation, Denies GI cramping, Reports dysphagia, Denies excessive flatus, Denies early satiety, Reports heartburn, Denies diarrhea, Reports nausea, Denies odynophagia, Reports vomiting and Denies hematemesis Skin/Breast Denies pruritus, Denies lesions, Denies rash and Denies jaundice Neuro Reports Normal hearing present and Denies Abnormal speech present Endo Denies fatigue Aller/Immun Denies throat swelling and Denies tongue swelling Physical Exam Vital Signs: BMI result Body Mass Index 33.9 Const General: cooperative, no acute distress, well developed and well groomed Nutritional Appearance: well nourished and obese Orientation/consciousness: oriented to person, oriented to place and oriented to time Limitations: language barrier HEENT Head: Yes normocephalic and Yes atraumatic Eyes General: appearance normal, both eyes and all related structures Pupils: Equal, round and reactive pupils present Neck Neck: Yes normal visual inspection and Yes no lymphadenopathy Thyroid: Thyroid normal Resp Effort & Inspection: normal respiratory effort and able to speak in complete sentences Auscultation: clear to auscultation bilaterally Cardio Rate: regular rate Rhythm: regular rhythm Heart sounds: Normal, physiologic split S2 sound present Peripheral pulses: radial pulses present and posterior tibial pulses present GI Inspection: No distended, No Abdominal panniculus present and Yes obesity Palpation (GI): Soft to palpation, nontender, no guarding, not rigid and No hepatosplenomegaly present Percussion: Yes normal to percussion Auscultation: normal bowel sounds Rectal Exam - Female: deferred Skin General skin exam: no rashes or lesions noted, turgor normal, skin not dry, no jaundice, No spider nevi and no striae Rashes: no rashes Nails: normal Neuro General: oriented to person, oriented to place and oriented to time Cranial nerves: Yes Equal, round and reactive pupils present and Yes Normal hearing present Speech: No Abnormal speech present Extrem General: Yes normal to inspection, No clubbing, No cyanosis and No edema Psych Appearance: grossly normal and well kempt Mental Status: mental status grossly normal Speech and movement: Normal speech and movement present Affect: normal affect Attitude: cooperative Thought process: Normal thought process present and not confabulating Thought content: Normal thought content present Insight: Limited insight present (Psych) Judgement: Limited judgement present (Psych) Assessment & Plan Assessment & Plan (1) GERD (gastroesophageal reflux disease): Code(s): K21.9 - Gastro-esophageal reflux disease without esophagitis Category: Medical Qualifiers: Esophagitis presence: without esophagitis Qualified Code(s): K21.9 - Gastro-esophageal reflux disease without esophagitis (2) Pre-op examination: Code(s): Z01.818 - Encounter for other preprocedural examination Category: Medical (3) Hemorrhoids: Code(s): K64.9 - Unspecified hemorrhoids Category: Medical (4) Dysphagia: Code(s): R13.10 - Dysphagia, unspecified Category: Medical Qualifiers: Dysphagia type: pharyngeal phase Qualified Code(s): R13.13 - Dysphagia, pharyngeal phase (5) Constipation: Code(s): K59.00 - Constipation, unspecified Category: Medical Plan Afghan #[id number] Patient has been lost to follow-up since 10/2022 She has a new problem of dysphagia. Solid foods and pills get stuck in the early nilda pharyngeal area. She has to sit up because otherwise I feel like I'm drowning. This happens with solid foods and pills, she has no trouble with liquids. THere are no new medications or illness preceding this. THe feeling of not being able to breath is alleviated if she turns her head on an angle, and she only occasionally has the feeling of actual regurgitation from the stomach. I'm uncertain if this is a variation of a globus sensation or another problem. She suffers CIC which she has treated in the past with fiber pills, but it is no helping much. I think we need to treat this to alleviate GERD. She has used senna in the past with good effect, she dislikes liquids like Mirlalz and MOM. She is on omeprazole 40mg qd which I will increase to bid. She says that when she was in [place] she had an episode of vomiting and they told me that something in my throat ruptured, and if it happened again they may need to do surgery. ? tonsils. She has gained some weight recently. She was unaware of her barium swallow on 04/22, so I encourage her to keep this. Will also get EGD. ROV 6 weeks. Orders: Orders EGD - GI Use Only 04/07/24 R13.13 - Dysphagia, pharyngeal phase Medications: New sennosides (Senna Laxative) 17.2 mg (2 x 8.6 mg) PO BEDTIME 60 tabs 6RF R13.13 - Dysphagia, pharyngeal phase, K59.00 - Constipation, unspecified Changed From omeprazole 40 mg PO QAM 90 days 90 caps 3RF To omeprazole 40 mg PO BID 60 caps 3RF 30 days Coding Level of Care Code Est Pt Level 4 (89922) Diagnoses Gastroesophageal reflux disease without esophagitis K21.9 Esophagitis presence: without esophagitis Pre-op examination Z01.818 Hemorrhoids K64.9 Pharyngeal dysphagia R13.13 Dysphagia type: pharyngeal phase Constipation K59.00
[2024-04-07 11:55] VITALS: BMI 33.9
== END 2024-04-07 12:38 | disposition home or self-care (01) ==
PROVIDERS: PCP Internal Medicine; Visit Provider Nurse Practitioner
DX: K21.9 Gastro-esophageal reflux disease without esophagitis (principal); Z01.818 Encounter for other preprocedural examination; K64.9 Unspecified hemorrhoids; R13.13 Dysphagia, pharyngeal phase; K59.00 Constipation, unspecified
CPT/HCPCS: 99214

== ENCOUNTER → 2024-04-07 11:44 | Outpatient (BNVA) | payer OTHER, SELFPAY | PROVIDERS: PCP Internal Medicine; Visit Provider Nurse Practitioner | DX: Z01.818 Encounter for other preprocedural examination (principal); K21.9 Gastro-esophageal reflux disease without esophagitis; K64.9 Unspecified hemorrhoids; K59.00 Constipation, unspecified; R13.13 Dysphagia, pharyngeal phase | CPT/HCPCS: 99212 ==

== ENCOUNTER 2024-04-22 09:07 | Outpatient (REF) | payer OTHER, SELFPAY ==
--- NOTE | ~2024-04-22 | FL_ITS ---
EXAMINATION: XR FLUOROSCOPY UPPER GI WITH AIR CLINICAL INFORMATION: Dysphagia COMPARISON: None TECHNIQUE: Fluoroscopic air contrast upper GI examination was performed utilizing standard techniques with thin and thick barium and effervescent granules. Numerous spot images were obtained. FINDINGS: Lateral cine images of the oropharynx and hypopharynx demonstrate normal swallow mechanism with normal epiglottic inversion and soft palate elevation. No tracheal penetration, glottic or subglottic aspiration identified. No nasopharyngeal reflux present. Hypopharyngeal structures appear normal without evidence of mass or diverticulum. There is mild cricopharyngeal achalasia present. Dual and single contrast images of the esophagus demonstrate normal caliber, contour, and mucosal pattern. No evidence of stricture, mass, or ulcerations identified. There is to and fro motion of the barium column, with nonpropulsive tertiary contractions noted throughout the esophagus. No evidence of hiatus hernia identified. No significant gastroesophageal reflux was seen during the course of the examination and on reflux views. Dual contrast and single contrast images of the stomach a demonstrated normal contour. Diffuse thickening and prominence of the areae gastricae is present throughout the stomach, most notably in the body of the fundus. Gastric fold thickening is also seen to a mild degree. No masses or significant ulcerations are seen. Contrast freely passed into the gastric antrum and duodenal bulb without delay. Single and air-contrast images of the duodenal bulb demonstrate no abnormality. The duodenal sweep has a normal appearance, course, and mucosal fold appearance. The imaged proximal jejunum has a normal fold pattern and caliber. There are cholecystectomy clips. FLUOROSCOPY TIME: 3 minutes 15 seconds Number of Spot Images: 9 Number of Cine: 15 DOSE AREA PRODUCT: 2163 uGy-m2 (microgray-meter squared) FL/FL barium swallow IMPRESSION: 1. Mild cricopharyngeal achalasia. 2. Esophageal dysmotility. 3. Diffuse thickening of the areae gastricae seen throughout the body and fundus of the stomach, with mild gastric fold thickening. Findings suggest gastritis. Consider correlation with EGD. This procedure was performed by Frederick Steiner PA-C, and supervised by Dr. Groves Electronically signed by: Emiliano Groves MD 04/23/2024 01:15 PM EDT
[2024-04-22 10:32] LABS: Alanine Aminotransferase 18 U/L (0-31); Albumin Level 4.1 g/dL (3.5-5.0); Alkaline Phosphatase 90 U/L (39-117); Anion Gap 13 (12-20); Aspartate Amino Transferase 18 U/L (5-31); Bilirubin Total 0.6 mg/dL (0.0-1.0); Blood Urea Nitrogen 13 mg/dL (9-16); Calcium 9.8 mg/dL (8.4-10.2); Carbon Dioxide 25 mmol/L (22-29); Chloride 107 mmol/L (96-108); Cholesterol 173 mg/dL (<200); Estimated Glomerular Filt Rate > 60; Glucose Fasting 120 mg/dL (60-99); HDL Cholesterol 42 mg/dL (>40); LDL Cholesterol Calculated 105 mg/dL (<100); Sodium 141 mmol/L (135-145); Total Protein 7.6 g/dL (6.5-8.0); Triglycerides 131 mg/dL (<150)
[2024-04-22 10:35] LABS: Appearance Urine Clear; Color Urine Yellow; Glucose Urine UA Negative (Negative); Leukocyte Esterase Urine Negative (Negative); Nitrite Urine Negative (Negative); PH 6.5 (5.0-9.0); Specific Gravity - Urine <= 1.005 (1.005-1.025); Urine Blood Negative (Negative); Urine Ketones Negative (Negative); Urine Protein Negative (Neg-Trace)
[2024-04-25 11:32] LABS: TS Negative Control Passed; TS Panel A 1; TS Panel B 0; TS Positive Control Passed; TSpotTB Negative (Negative)
== END 2024-04-22 09:08 | disposition home or self-care (01) ==
LOC: HO.XRAY 09:07
PROVIDERS: PCP Internal Medicine; Visit Provider Internal Medicine
DX: Z00.00 Encounter for general adult medical examination without abnormal findings (principal); R39.9 Unspecified symptoms and signs involving the genitourinary system; R13.13 Dysphagia, pharyngeal phase; E78.5 Hyperlipidemia, unspecified; Z11.1 Encounter for screening for respiratory tuberculosis; I10 Essential (primary) hypertension
CPT/HCPCS: 36415; 74220; 80053; 80061; 81003; 86481

== ENCOUNTER → 2024-04-22 09:35 | Outpatient (BNV) | payer OTHER, SELFPAY | PROVIDERS: PCP Internal Medicine; Visit Provider Radiology Diagnostic Radiology | DX: R13.10 Dysphagia, unspecified (principal) | CPT/HCPCS: 74246 ==

== ENCOUNTER 2024-05-22 12:16 | Outpatient (AMB) | payer OTHER, SELFPAY ==
--- NOTE | 2024-05-22 12:23 | MHC.OFFVIS ---
Vital Signs 05/22/24 12:24 Height 5 ft 1 in Weight 180 lb BMI 34.0 BP 125/70 Blood Pressure Location Lt brachial Position Sitting Pulse 65 Intake Visit Reasons: 6 week follow up CIC Intake Note: Patient follow up for CIC Patient cc: abdominal boating, constipation, hemorrhoids on and off and swallowing difficulty, food get stock and she have to drink a lot of water. Patient wanted to be referral to an hemorrhoids specialist. Oilseed Meat Presser Required: Yes Oilseed Meat Presser Name: C I nterpeter Accompanied by: Self / Same As Patient Allergies trazodone [TRAZODONE] Allergy (Intermediate, Verified 05/22/24 12:23) TACHYCARDIA HPI HPI 6 week follow up CIC: Details: Assessment & Plan (1) GERD (gastroesophageal reflux disease): Code(s): K21.9 - Gastro-esophageal reflux disease without esophagitis Category: Medical Qualifiers: Esophagitis presence: without esophagitis Qualified Code(s): K21.9 - Gastro-esophageal reflux disease without esophagitis (2) Pre-op examination: Code(s): Z01.818 - Encounter for other preprocedural examination Category: Medical (3) Hemorrhoids: Code(s): K64.9 - Unspecified hemorrhoids Category: Medical (4) Dysphagia: Code(s): R13.10 - Dysphagia, unspecified Category: Medical Qualifiers: Dysphagia type: pharyngeal phase Qualified Code(s): R13.13 - Dysphagia, pharyngeal phase (5) Constipation: Code(s): K59.00 - Constipation, unspecified Category: Medical Plan [place] #[id number] Patient has been lost to follow-up since 10/2022 She has a new problem of dysphagia. Solid foods and pills get stuck in the early nilda pharyngeal area. She has to sit up because otherwise I feel like I'm drowning. This happens with solid foods and pills, she has no trouble with liquids. There are no new medications or illness preceding this. The feeling of not being able to breath is alleviated if she turns her head on an angle, and she only occasionally has the feeling of actual regurgitation from the stomach. I'm uncertain if this is a variation of a globus sensation or another problem. She suffers CIC which she has treated in the past with fiber pills, but it is no helping much. I think we need to treat this to alleviate GERD. She has used senna in the past with good effect, she dislikes liquids like Mirlalz and MOM. She is on omeprazole 40mg qd which I will increase to bid. She says that when she was in [place] she had an episode of vomiting and they told me that something in my throat ruptured, and if it happened again they may need to do surgery. ? tonsils. She has gained some weight recently. She was unaware of her barium swallow on 04/22, so I encourage her to keep this. Will also get EGD. ROV 6 weeks. Orders: Orders EGD - GI Use Only 04/07/24 R13.13 - Dysphagia, pharyngeal phase Medications: New sennosides (Senna Laxative) 17.2 mg (2 x 8.6 mg) PO BEDTIME 60 tabs 6RF R13.13 - Dysphagia, pharyngeal phase, K59.00 - Constipation, unspecified Changed From omeprazole 40 mg PO QAM 90 days 90 caps 3RF To omeprazole 40 mg PO BID 60 caps 3RF 30 days EGD 08/11/2024 Biopsy BARIUM SWALLOW 04/23/24 FINDINGS: Lateral cine images of the oropharynx and hypopharynx demonstrate normal swallow mechanism with normal epiglottic inversion and soft palate elevation. No tracheal penetration, glottic or subglottic aspiration identified. No nasopharyngeal reflux present. Hypopharyngeal structures appear normal without evidence of mass or diverticulum. There is mild cricopharyngeal achalasia present. Dual and single contrast images of the esophagus demonstrate normal caliber, contour, and mucosal pattern. No evidence of stricture, mass, or ulcerations identified. There is to and fro motion of the barium column, with nonpropulsive tertiary contractions noted throughout the esophagus. No evidence of hiatus hernia identified. No significant gastroesophageal reflux was seen during the course of the examination and on reflux views. Dual contrast and single contrast images of the stomach a demonstrated normal contour. Diffuse thickening and prominence of the areae gastricae is present throughout the stomach, most notably in the body of the fundus. Gastric fold thickening is also seen to a mild degree. No masses or significant ulcerations are seen. Contrast freely passed into the gastric antrum and duodenal bulb without delay. Single and air-contrast images of the duodenal bulb demonstrate no abnormality. The duodenal sweep has a normal appearance, course, and mucosal fold appearance. The imaged proximal jejunum has a normal fold pattern and caliber. There are cholecystectomy clips. FLUOROSCOPY TIME: 3 minutes 15 seconds Number of Spot Images: 9 Number of Cine: 15 DOSE AREA PRODUCT: 2163 uGy-m2 (microgray-meter squared) FL/FL barium swallow IMPRESSION: 1. Mild cricopharyngeal achalasia. 2. Esophageal dysmotility. 3. Diffuse thickening of the areae gastricae seen throughout the body and fundus of the stomach, with mild gastric fold thickening. Findings suggest gastritis. Consider correlation with EGD. TODAY'S VISIT [place] #Eddie Live with jonny We review the barium swallow and show some dysmotility along with mild cricopharyngeal achalasia. Now the endoscopy will be necessary to see if possible dilation or other diagnostic criteria can help with her swallowing issues. She continues on her omeprazole, she did receive the senna but found that it really did not do anything to help her move her bowels better. Since it did not do anything we will progress to Dulcolax 1-2 tablets as needed. She is aware of her upcoming endoscopy in July. Return office visit in 6 weeks to evaluate the bisacodyl [facility] Medical History (Updated 04/07/24 @ 12:34 by QUINTEN Oro) Constipation Cervical spondylosis Cervical radiculopathy Hyperkalemia Carpal tunnel syndrome Physical exam Cervical paraspinal muscle spasm Physical exam Right elbow pain Cervicalgia Medication monitoring encounter Left foot pain Breast pain Breast discharge Irregular bleeding Right knee pain Left shoulder pain COVID-19 Vaginal discharge Well woman exam with routine gynecological exam Pre-diabetes Pre-op examination Osteoarthritis of right knee Degeneration, intervertebral disc, cervical Migraines Class 1 obesity due to excess calories without serious comorbidity with body mass index (BMI) of 30.0 to 30.9 in adult Left shoulder pain Pure hypercholesterolemia Fibromyalgia GERD (gastroesophageal reflux disease) Surgical History Left carpal tunnel syndrome H/O colonoscopy H/O laminectomy Hx of tubal ligation History of laparoscopic cholecystectomy Family History Father No problems noted. 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 Current occupational exposures/hazards: No Gender identity: Female Cognitive needs: No Hearing needs: No Vision needs: No Review of Systems Const Denies fatigue, Denies fever(s), Denies night sweats, Denies poor appetite and Denies weight loss ENT Reports Normal hearing present, Denies dental pain, Reports dysphagia, Denies hearing loss, Denies mouth pain, Denies odynophagia, Denies throat swelling, Denies tongue swelling and Reports other (Dentition adequate) Card Reports no additional complaints Resp Reports no additional complaints GI Details: Denies abdominal pain, Denies melena, Denies bloating, Denies hematochezia, Reports constipation, Denies GI cramping, Reports dysphagia, Denies excessive flatus, Denies early satiety, Reports heartburn, Denies diarrhea, Denies nausea, Denies odynophagia, Denies vomiting and Denies hematemesis Skin/Breast Denies pruritus, Denies lesions, Denies rash and Denies jaundice Neuro Reports Normal hearing present and Denies Abnormal speech present Endo Denies fatigue Aller/Immun Denies throat swelling and Denies tongue swelling Physical Exam Vital Signs: Last Vital Signs Pulse 65 05/22/24 12:24 BP 125/70 05/22/24 12:24 BMI result Body Mass Index 34.0 Const General: cooperative, no acute distress, well developed and well groomed Nutritional Appearance: well nourished and overweight Orientation/consciousness: oriented to person, oriented to place and oriented to time Limitations: language barrier HEENT Head: Yes normocephalic and Yes atraumatic Eyes General: appearance normal, both eyes and all related structures Pupils: Equal, round and reactive pupils present Neck Neck: Yes normal visual inspection and Yes no lymphadenopathy Thyroid: Thyroid normal Resp Effort & Inspection: normal respiratory effort and able to speak in complete sentences Auscultation: clear to auscultation bilaterally Cardio Rate: regular rate Rhythm: regular rhythm Heart sounds: Normal, physiologic split S2 sound present Peripheral pulses: radial pulses present and posterior tibial pulses present GI Inspection: No distended, No Abdominal panniculus present and Yes obesity Palpation (GI): Soft to palpation, nontender, no guarding, not rigid and No hepatosplenomegaly present Percussion: Yes normal to percussion Auscultation: normal bowel sounds Rectal Exam - Female: deferred Skin General skin exam: no rashes or lesions noted, turgor normal, skin not dry, no jaundice, No spider nevi and no striae Rashes: no rashes Nails: normal Neuro General: oriented to person, oriented to place and oriented to time Cranial nerves: Yes Equal, round and reactive pupils present and Yes Normal hearing present Speech: No Abnormal speech present Extrem General: Yes normal to inspection, No clubbing, No cyanosis and No edema Psych Appearance: grossly normal and well kempt Mental Status: mental status grossly normal Speech and movement: Normal speech and movement present Affect: normal affect Attitude: cooperative Thought process: Normal thought process present and not confabulating Thought content: Normal thought content present Insight: Limited insight present (Psych) Judgement: Limited judgement present (Psych) Assessment & Plan Assessment & Plan (1) Dysphagia: Code(s): R13.10 - Dysphagia, unspecified Category: Medical Qualifiers: Dysphagia type: pharyngeal phase Qualified Code(s): R13.13 - Dysphagia, pharyngeal phase (2) GERD (gastroesophageal reflux disease): Code(s): K21.9 - Gastro-esophageal reflux disease without esophagitis Category: Medical Qualifiers: Esophagitis presence: without esophagitis Qualified Code(s): K21.9 - Gastro-esophageal reflux disease without esophagitis (3) Constipation: Code(s): K59.00 - Constipation, unspecified Category: Medical Plan [place] [facility] Live with jonny We review the barium swallow and show some dysmotility along with mild cricopharyngeal achalasia. Now the endoscopy will be necessary to see if possible dilation or other diagnostic criteria can help with her swallowing issues. She continues on her omeprazole, she did receive the senna but found that it really did not do anything to help her move her bowels better. Since it did not do anything we will progress to Dulcolax 1-2 tablets as needed. She is aware of her upcoming endoscopy in July. Return office visit in 6 weeks to evaluate the bisacodyl Orders: Referrals General Surgery Referral K64.9 - Unspecified hemorrhoids Medications: New bisacodyl (Dulcolax (bisacodyl)) 10 mg (2 x 5 mg) PO BEDTIME 30 days 60 tabs 6RF K21.9 - Gastro-esophageal reflux disease without esophagitis, K59.00 - Constipation, unspecified, R13.13 - Dysphagia, pharyngeal phase Discontinued sennosides (Senna Laxative) Discontinued Reason: Doctor's Order 17.2 mg (2 x 8.6 mg) PO BEDTIME 60 tabs 6RF K59.00 - Constipation, unspecified, R13.13 - Dysphagia, pharyngeal phase Coding Level of Care Code Est Pt Level 3 (39657) Diagnoses Pharyngeal dysphagia R13.13 Dysphagia type: pharyngeal phase Gastroesophageal reflux disease without esophagitis K21.9 Esophagitis presence: without esophagitis Constipation K59.00
[2024-05-22 12:24] VITALS: BP 125/70; PULSE 65; BMI 34.0
== END 2024-05-22 12:47 | disposition home or self-care (01) ==
PROVIDERS: PCP Internal Medicine Medical Oncology; Visit Provider Nurse Practitioner
DX: R13.13 Dysphagia, pharyngeal phase (principal); K21.9 Gastro-esophageal reflux disease without esophagitis; K59.00 Constipation, unspecified
CPT/HCPCS: 99213

== ENCOUNTER → 2024-05-22 12:16 | Outpatient (BNVA) | payer OTHER, SELFPAY | PROVIDERS: PCP Internal Medicine Medical Oncology; Visit Provider Nurse Practitioner | DX: K59.04 Chronic idiopathic constipation (principal); R14.0 Abdominal distension (gaseous); K64.9 Unspecified hemorrhoids; K21.9 Gastro-esophageal reflux disease without esophagitis; R13.13 Dysphagia, pharyngeal phase | CPT/HCPCS: 99212 ==

== ENCOUNTER 2024-05-25 12:45 | Outpatient (AMB) | payer OTHER, SELFPAY ==
--- NOTE | 2024-05-25 12:48 | A.OFFVIS_ITS ---
Vital Signs 05/25/24 12:55 Height 5 ft 1 in Weight 181 lb 14.102 oz BMI 34.4 BP 112/70 Blood Pressure Location Lt brachial Position Sitting Pulse 67 Pulse Source Pulse Oximeter Pulse Oximetry (%) 97 Oxygen Delivery Method Room Air Intake Visit Reasons: OA/FM/LVM Intake Note: Patient presents for OA. 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 Services: Immunology Specialist Present Immunology Specialist Name: Ajay [id number] Information Interpreted: non-clinical & clinical Allergies trazodone [TRAZODONE] Allergy (Intermediate, Verified 05/25/24 12:53) TACHYCARDIA Medication List - Last Reconciled 05/25/24 by Brendan Leon MD atorvastatin 10 mg PO BEDTIME 90 days bisacodyl (Dulcolax (bisacodyl)) 10 mg (2 x 5 mg) PO BEDTIME 30 days blood pressure monitor As directed cromolyn 4% 1 drp ophthalmic (eye) 6XD 7 days cyclobenzaprine 5 mg PO TID PRN 7 days gabapentin 400 mg PO TID hydrocortisone 2.5% (Proctosol HC) 1 appl [place] BID PRN loratadine (Allergy Relief (loratadine)) 10 mg PO DAILY 90 days losartan 25 mg PO DAILY 90 days meloxicam 15 mg PO DAILY 90 days mirtazapine (Remeron) 15 mg PO BEDTIME 90 days omeprazole 40 mg PO BID 30 days oxybutynin chloride 5 mg PO BEDTIME PRN 30 days propranolol 20 mg PO DAILY 90 days psyllium husk (Reguloid (psyllium husk)) 0.8 grams (2 x 0.4 gram) PO BEDTIME ropinirole 0.5 mg PO BEDTIME 90 days tramadol 50 mg PO TID PRN [Wrist splint Wear nightly & as much as possible throughout the day] HPI Comments Details: 53-year-old female with fibromyalgia and generalized osteoarthritis returns for follow-up. She states that she continues to have diffuse pain. Has been having right knee pain. She states that she has had right knee injections in the past. Three or 4 injections. Most recent injection was about a year ago. She states that it does provide relief. Requesting another injection today. Also states that she has right ankle pain. She feels like she has ankle pain with electric discharge that shoots down her right foot. She remains on gabapentin 400 mg t.i.d. and tramadol 50 mg t.i.d. [facility] History Constipation Cervical spondylosis Cervical radiculopathy Hyperkalemia Carpal tunnel syndrome Physical exam Cervical paraspinal muscle spasm Physical exam Right elbow pain Cervicalgia Medication monitoring encounter Left foot pain Breast pain Breast discharge Irregular bleeding Right knee pain Left shoulder pain COVID-19 Vaginal discharge Well woman exam with routine gynecological exam Pre-diabetes Pre-op examination Osteoarthritis of right knee Degeneration, intervertebral disc, cervical Migraines Class 1 obesity due to excess calories without serious comorbidity with body mass index (BMI) of 30.0 to 30.9 in adult Left shoulder pain Pure hypercholesterolemia Fibromyalgia GERD (gastroesophageal reflux disease) Surgical History Left carpal tunnel syndrome H/O colonoscopy H/O laminectomy Hx of tubal ligation History of laparoscopic cholecystectomy Family History Father No problems noted. 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 Current occupational exposures/hazards: No Gender identity: Female Cognitive needs: No Hearing needs: No Vision needs: No Review of Systems Musc Reports arthralgias, Reports radiating pain into limb and Reports tingling Neuro Reports tingling Physical Exam Vital Signs: Last Vital Signs Pulse 67 05/25/24 12:55 BP 112/70 05/25/24 12:55 Pulse Ox 97 05/25/24 12:55 Oxygen Delivery Method Room Air 05/25/24 12:55 BMI result Body Mass Index 34.4 Const General: cooperative, healthy appearing and comfortable Nutritional Appearance: obese Orientation/consciousness: patient oriented x3 Limitations: no limitations HEENT Head: Yes normocephalic and Yes atraumatic Mouth: moist mucous membranes Resp Effort & Inspection: normal respiratory effort and able to speak in complete sentences Neuro General: patient oriented x3 Extrem Other: Osteoarthritic changes of both hands with no active synovitis Right knee pain with full flexion-extension Office Procedures Joint Injection/Aspiration Joint Injection/Aspiration Primary Site: right knee Prep: site was prepped using sterile technique and ethochloride spray was applied Injected: 40 mg of, Kenalog, with 1 mL of, 1% plain lidocaine and in the joint Approach Used: medial parapatellar Procedure: The patient tolerated the procedure well Coding Details: With the patient's consent the right knee was prepped with ChloraPrep and alcohol. The skin was anesthetized with 2 cc of 1% lidocaine. The knee was then injected with 40 mg of triamcinolone and 1 cc of I % lidocaine. The patient tolerated the procedure with no immediate adverse effects. 04454 - Large joint Procedure code (CPT) selection complete Assessment & Plan Assessment & Plan (1) Fibromyalgia: Code(s): M79.7 - Fibromyalgia Category: Medical Plan: This is a 53-year-old female with fibromyalgia who presents for follow-up. She remains on gabapentin 400 mg t.i.d. and tramadol 50 mg t.i.d.. Symptoms fairly stable. Continue current meds. Follow-up in 6 months (2) Osteoarthritis of right knee: Code(s): M17.11 - Unilateral primary osteoarthritis, right knee Category: Medical Qualifiers: Osteoarthritis type: primary Qualified Code(s): M17.11 - Unilateral primary osteoarthritis, right knee Plan: Patient states that she has had 3 or 4 right knee injections in the past. Most recent injection over a year ago. Requesting another injection today. States that it did provide relief. With patient's consent, right knee was injected with Kenalog (3) Paresthesia of right leg: Code(s): R20.2 - Paresthesia of skin Category: Medical Plan: Will check bilateral lower extremity EMG/NCV as well as right ankle x-ray (4) Ankle pain, right: Code(s): M25.571 - Pain in right ankle and joints of right foot Category: Medical Plan I spent 25 minutes reviewing patient's chart, evaluating patient, ordering diagnostic workup, counseling patient and documenting in the chart Orders: Orders AMB Joint Injection/Aspiration Today M17.11 - Unilateral primary osteoarthritis, right knee XR ankle RT min 3V Today M25.571 - Pain in right ankle and joints of right foot NE electromyogram (EMG) Today R20.2 - Paresthesia of skin Coding Level of Care Code Est Pt Level 4 (51156) Diagnoses Fibromyalgia M79.7 Primary osteoarthritis of right knee M17.11 Osteoarthritis type: primary Paresthesia of right leg R20.2 Ankle pain, right M25.571 CPT Codes Coding - 47819 Large joint: 84800 - Large joint ([id number])
[2024-05-25 12:55] VITALS: BP 112/70; PULSE 67; O2SAT 97; BMI 34.4
== END 2024-05-25 13:22 | disposition home or self-care (01) ==
PROVIDERS: PCP Internal Medicine; Visit Provider Student in an Organized Health Care Education/Training Program
DX: M79.7 Fibromyalgia (principal); M17.11 Unilateral primary osteoarthritis, right knee; R20.2 Paresthesia of skin; M25.571 Pain in right ankle and joints of right foot
CPT/HCPCS: 20610; 99213

== ENCOUNTER → 2024-05-25 12:45 | Outpatient (BNVA) | payer OTHER, SELFPAY | PROVIDERS: PCP Internal Medicine; Visit Provider Student in an Organized Health Care Education/Training Program | DX: M17.11 Unilateral primary osteoarthritis, right knee (principal); M79.7 Fibromyalgia; M25.571 Pain in right ankle and joints of right foot; R20.2 Paresthesia of skin | CPT/HCPCS: 20610; 99212 ==

== ENCOUNTER → 2024-05-27 08:00 | Outpatient (BNV) | payer OTHER, SELFPAY | PROVIDERS: PCP Internal Medicine; Visit Provider Internal Medicine | DX: Z12.31 Encounter for screening mammogram for malignant neoplasm of breast (principal) | CPT/HCPCS: 77063; 77067 ==

== ENCOUNTER 2024-05-27 08:08 | Outpatient (REF) | payer OTHER, SELFPAY ==
--- NOTE | ~2024-05-27 | MM_ITS ---
EXAMINATION: MM SCREENING DIGITAL BREAST TOMOSYNTHESIS, BILATERAL CLINICAL INFORMATION: Screening. Asymptomatic. COMPARISON: Mammography: Comparison is made with available priors TECHNIQUE: Digital breast mammography with tomosynthesis is performed in both the craniocaudal and mediolateral oblique views along with computer-aided detection (CAD). FINDINGS: There are scattered areas of fibroglandular density (ACR BI-RADS breast composition Category b). There are no significant masses, abnormal calcifications, or other abnormalities. MM/MM tomosynthesis screening BI IMPRESSION: No mammographic evidence of malignancy. ASSESSMENT: BI-RADS BI-RADS 1 - Negative RECOMMENDATION: Routine annual mammography screening. 1 year F/U This examination should not preclude the clinical evaluation of a suspicious palpable abnormality. This patient's information was entered into a reminder system with a target due date for their next mammogram. Electronically signed by: Charlette Rodríguez DO 06/08/2024 05:57 PM EDT
== END 2024-05-27 08:09 | disposition home or self-care (01) ==
LOC: HO.MAMMO 08:08
PROVIDERS: PCP Internal Medicine; Visit Provider Internal Medicine
DX: Z12.31 Encounter for screening mammogram for malignant neoplasm of breast (principal)
CPT/HCPCS: 77063; 77067

== ENCOUNTER 2024-06-23 09:05 | Outpatient (REF) | payer OTHER, SELFPAY ==
--- NOTE | 2024-06-23 09:08 | EMG_ITS ---
Bilateral tibial and peroneal motor studies were performed. Bilateral superficial peroneal, sural and median and lateral mixed plantar sensory studies were performed. Tibial H-reflexes were obtained and paraspinal muscles were tested with a needle. 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 Otherwise, no significant abnormality noted. MD ADRIANA Douglas/ELIZABETH / [id number]
== END 2024-06-23 09:06 | disposition home or self-care (01) ==
LOC: HO.NEURO 09:05
PROVIDERS: PCP Internal Medicine; Visit Provider Student in an Organized Health Care Education/Training Program
DX: R20.2 Paresthesia of skin (principal)
CPT/HCPCS: 95886; 95913

== ENCOUNTER 2024-06-24 09:55 | Outpatient (AMB) | payer OTHER, SELFPAY ==
--- NOTE | 2024-06-24 09:57 | MHC.OFFVIS ---
Vital Signs 06/24/24 10:04 Height 5 ft 1 in Weight 180 lb BMI 34.0 Intake Visit Reasons: hemorrhoids Intake Note: This patient presents for hemorrhoids assessment. Pt c/o; reports no rectal bleeding or pain, reports occasional constipation and straining with bowel movements. 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 Services: Candy Cutter Machine Present ([place]) Information Interpreted: non-clinical & clinical Accompanied by: Self / Same As Patient Allergies trazodone [TRAZODONE] Allergy (Intermediate, Verified 06/24/24 10:05) TACHYCARDIA Medication List - Last Reconciled 06/24/24 by Anthony Nair MD atorvastatin 10 mg PO BEDTIME 90 days bisacodyl (Dulcolax (bisacodyl)) 10 mg (2 x 5 mg) PO BEDTIME 30 days blood pressure monitor As directed cromolyn 4% 1 drp ophthalmic (eye) 6XD 7 days cyclobenzaprine 5 mg PO TID PRN 7 days gabapentin 400 mg PO TID hydrocortisone 2.5% (Proctosol HC) 1 appl HI BID PRN loratadine (Allergy Relief (loratadine)) 10 mg PO DAILY 90 days losartan 25 mg PO DAILY 90 days meloxicam 15 mg PO DAILY 90 days mirtazapine (Remeron) 15 mg PO BEDTIME 90 days omeprazole 40 mg PO BID 30 days oxybutynin chloride 5 mg PO BEDTIME PRN 30 days propranolol 20 mg PO DAILY 90 days psyllium husk (Reguloid (psyllium husk)) 0.8 grams (2 x 0.4 gram) PO BEDTIME ropinirole 0.5 mg PO BEDTIME 90 days tramadol 50 mg PO TID PRN [Wrist splint Wear nightly & as much as possible throughout the day] HPI HPI hemorrhoids: Details: 53-year-old female here for chronic hemorrhoid issues. She states she started to have hemorrhoids after her 1st about 3 years ago. She had noticed this lump outside of her anus at that time which has increased in size over the years. She describes frequent pain, swelling occasional bleeding from her hemorrhoids. She says that this becomes very uncomfortable with bowel movements. She admits to some history of constipation She had a colonoscopy last year which was unremarkable she says. [facility] Medical History (Updated 06/24/24 @ 10:24 by Anthony Nair MD) Hemorrhoids with complication Constipation Cervical spondylosis Cervical radiculopathy Hyperkalemia Carpal tunnel syndrome Physical exam Cervical paraspinal muscle spasm Physical exam Right elbow pain Cervicalgia Medication monitoring encounter Left foot pain Breast pain Breast discharge Irregular bleeding Right knee pain Left shoulder pain COVID-19 Vaginal discharge Well woman exam with routine gynecological exam Pre-diabetes Pre-op examination Osteoarthritis of right knee Degeneration, intervertebral disc, cervical Migraines Class 1 obesity due to excess calories without serious comorbidity with body mass index (BMI) of 30.0 to 30.9 in adult Left shoulder pain Pure hypercholesterolemia Fibromyalgia GERD (gastroesophageal reflux disease) Surgical History Left carpal tunnel syndrome H/O colonoscopy H/O laminectomy Hx of tubal ligation History of laparoscopic cholecystectomy Family History Father No problems noted. 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 Current occupational exposures/hazards: No Gender identity: Female Cognitive needs: No Hearing needs: No Vision needs: No Review of Systems Const Denies chills and Denies fever(s) Card Denies chest pain, Denies dyspnea and Denies dyspnea on exertion Resp Denies cough, Denies dyspnea and Denies dyspnea on exertion GI Reports hematochezia, Denies change in bowel habits and Reports constipation Denies hematuria Musc Denies back pain and Denies limited range of motion Neuro Denies focal weakness and Denies convulsions Psych Denies depression and Denies mood swings Physical Exam Vital Signs: BMI result Body Mass Index 34.0 Const General: comfortable and no acute distress Orientation/consciousness: patient oriented x3 Neck Neck: Yes no lymphadenopathy Resp Auscultation: clear to auscultation bilaterally Cardio Rhythm: regular rhythm GI Other: Rectal exam shows moderate size hemorrhoids on the left and right side with some mucosal prolapse Palpation (GI): Soft to palpation, nontender and no guarding Neuro General: patient oriented x3 Office Procedures Anoscopy She was in jeff-knife position. The anoscope was gently inserted. A full examination of the entire anal canal was done. She did have large hemorrhoidal columns, mostly external some internal on both the left and right side. There were no lesions seen. There was no bleeding. There was no fissure ulceration. There was no induration on digital exam [id number] Assessment & Plan Assessment & Plan (1) Hemorrhoids with complication: Code(s): K64.8 - Other hemorrhoids Category: Medical Plan: She has both internal external hemorrhoids with complains of chronic pain, frequent swelling, comfort and occasional bleeding. She wants to proceed with hemorrhoidectomy because of this worsening problems I had a long discussion with her about the technique of exam under anesthesia with hemorrhoidectomy. I reviewed the risks including but not limited to bleeding, infections, postop pain, as well as the benefits and alternatives. I explained to her what to expect postoperatively She understands and wants to proceed. Coding Level of Care Code New Pt Level 3 (46119) Diagnoses Hemorrhoids with complication K64.8 CPT Codes Details - CPT: 89044-[id number] ([id number])
[2024-06-24 10:04] VITALS: BMI 34.0
== END 2024-06-24 10:22 | disposition home or self-care (01) ==
LOC: HO.HGS 09:56
PROVIDERS: PCP Internal Medicine; Visit Provider Surgery
DX: K64.8 Other hemorrhoids (principal)
CPT/HCPCS: 46600; 99203

== ENCOUNTER → 2024-06-24 09:55 | Outpatient (BNVA) | payer OTHER, SELFPAY | PROVIDERS: PCP Internal Medicine; Visit Provider Surgery | DX: K64.8 Other hemorrhoids (principal) | CPT/HCPCS: 46600; 99202 ==

== ENCOUNTER 2024-07-05 11:41 | Emergency (ER) | payer OTHER, SELFPAY ==
--- NOTE | ~2024-07-05 | US_ITS ---
EXAMINATION: US RETROPERITONEAL LIMITED, LEFT(RENAL ONLY) CLINICAL INFORMATION: Left-sided flank pain. COMPARISON: Abdominal ultrasound dated 09/15/2018. TECHNIQUE: Grayscale and Doppler images of the left kidney were obtained. FINDINGS: LEFT KIDNEY: 10.7 x 5.3 x 4.5 cm (SAG x AP x TRV). The kidney is normal in size, contour, and echogenicity. Renal cortical thickness is normal. No focal parenchymal lesions. There are echogenic foci within the mid and lower pole measuring up to 0.2 cm which may represent tiny nonobstructing stones versus vascular calcifications. No hydronephrosis. US/US renal LT IMPRESSION: Echogenic foci within the mid and lower pole of the left kidney measuring up to 0.2 cm which may represent tiny nonobstructing stones versus vascular calcifications. No hydronephrosis. Electronically signed by: Sukhjinder Moctezuma MD 07/05/2024 01:34 PM [facility]
[2024-07-05 11:43] VITALS: BP 150/90; PULSE 118; RESP 19; TEMP 36.6; O2SAT 99; BMI 34.0
--- NOTE | 2024-07-05 11:53 | ED_ITS ---
HPI - General Adult General Chief complaint: General Medical Stated complaint: L FLANK PAIN Time Seen by Provider: 07/05/24 12:17 Source: patient and old records reviewed Mode of arrival: ambulatory Limitations: no limitations History of Present Illness ED Provider: SONIDO BLACK narrative: 53 yo female with PMH of chronic pain syndrome, HTN, depression, arthritis, migraines, GERD, HLD here with c/o L back and flank pain but no known trauma hurts to move. No recent travel or procedures. NO GI or symptoms. No b/b incontinence no saddle anesthesia. Cannot move without pain. No CP/SOB. MD complaint: L flank pain Onset (ago): day(s) (today) Location: back (flank) and left Radiation: non-radiation Severity: moderate Quality: aching and constant Pain Consistency: constant Relieving factors: immobilization Exacerbating factors: movement Associated symptoms: denies other symptoms Treatments prior to arrival: other (oxycodone 3am no improvement) Related Data Previous Rx's ?Medication ?Instructions ?Recorded hydrocortisone 2.5 % topical cream 1 appl [place] BID PRN hemorrhoids #30 11/02/22 with perineal applicator grams (Proctosol HC) cromolyn 4 % eye drops 1 drp ophthalmic (eye) 6XD 7 days 01/10/23 #10 mL Wrist splint #2 ea 03/13/23 cyclobenzaprine 5 mg tablet 5 mg PO TID PRN muscle spasm 7 06/02/23 days #21 tabs meloxicam 15 mg tablet 15 mg PO DAILY 90 days #90 tabs 08/13/23 blood pressure monitor #1 ea 09/09/23 gabapentin 400 mg capsule 400 mg PO TID #90 caps 12/16/23 psyllium husk 0.4 gram capsule 0.8 g (2 x 0.4 gram) PO BEDTIME 12/16/23 (Reguloid (psyllium husk)) #60 caps loratadine 10 mg tablet (Allergy 10 mg PO DAILY 90 days #90 tabs 02/13/24 Relief (loratadine)) losartan 25 mg tablet 25 mg PO DAILY 90 days #90 tabs 02/13/24 propranolol 20 mg tablet 20 mg PO DAILY 90 days #90 tabs 02/13/24 omeprazole 40 mg capsule,delayed 40 mg PO BID 30 days #60 caps 04/07/24 release bisacodyl 5 mg tablet,delayed 10 mg (2 x 5 mg) PO BEDTIME 30 05/22/24 release (Dulcolax (bisacodyl)) days #60 tabs oxybutynin chloride 5 mg tablet 5 mg PO BEDTIME PRN bladder spasms 05/26/24 30 days #30 tabs atorvastatin 10 mg tablet 10 mg PO BEDTIME 90 days #90 tabs 06/01/24 mirtazapine 15 mg tablet (Remeron) 15 mg PO BEDTIME 90 days #90 tabs 06/01/24 ropinirole 0.5 mg tablet 0.5 mg PO BEDTIME 90 days #90 tabs 06/01/24 tramadol 50 mg tablet 50 mg PO TID PRN pain #90 tabs 06/18/24 diazepam 5 mg tablet (Valium) 5 mg PO TID PRN muscle spasm #10 07/05/24 tabs lidocaine 5 % topical patch 1 patch topical DAILY #30 ea 07/05/24 Allergies Allergy/AdvReac Type Severity Reaction Status Date / Time trazodone [TRAZODONE] Allergy Intermediate TACHYCARDIA Verified 07/05/24 11:45 Review of Systems 2 Review of Systems: Constitutional : No Weight loss, No Fever, No Chills, ENT/Mouth : No Hearing loss, No Ear Pain, No Nasal Congestion, No Sinus Pain, No Hoarseness, No sore throat, No Rhinorrhea, No Swallowing Difficulty Cardiovascular : No Chest Pain, No SOB Respiratory : No Cough, No Dyspnea Gastrointestinal : No Nausea, No Vomiting, No Diarrhea, No abdominal Pain, No Hematochezia, No Melena Genitourinary : No Dysuria, No Urinary Frequency, No Hematuria, No Urinary Incontinence, Musculoskeletal : positive back pain Skin : No Skin Lesions, No rash Neuro : No Weakness, No Numbness, No Paresthesias, no loss of bowel or bladder incontinence, no saddle anesthesia all other systems reviewe and are negative PMFSH Past Medical History Attestation statement: The following information was validated with the patient. Source: old records reviewed Medical History Hemorrhoids with complication Constipation Cervical spondylosis Cervical radiculopathy Hyperkalemia Carpal tunnel syndrome Physical exam Cervical paraspinal muscle spasm Physical exam Right elbow pain Cervicalgia Medication monitoring encounter Left foot pain Breast pain Breast discharge Irregular bleeding Right knee pain Left shoulder pain COVID-19 Vaginal discharge Well woman exam with routine gynecological exam Pre-diabetes Pre-op examination Osteoarthritis of right knee Degeneration, intervertebral disc, cervical Migraines Class 1 obesity due to excess calories without serious comorbidity with body mass index (BMI) of 30.0 to 30.9 in adult Left shoulder pain Pure hypercholesterolemia Fibromyalgia GERD (gastroesophageal reflux disease) Surgical History Left carpal tunnel syndrome H/O colonoscopy H/O laminectomy Hx of tubal ligation History of laparoscopic cholecystectomy Family History Family History Father No problems noted. 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 Oriented X3. No acute distress. Eyes: Pupils equal, round and reactive to light. ENT: Pharynx normal. Neck: Normal inspection. Neck supple. CVS: Normal heart rate and rhythm. Pulses normal. Respiratory: No respiratory distress. Breath sounds normal. Abdomen: Soft and nontender. Back: ttp along left lateral paraspinals lower Skin: Skin warm and dry. Normal skin color. Normal skin turgor. Extremities: No lower extremity edema. No calf ttp Neuro: Oriented X 3. No motor deficit. No sensory deficit. Course Course Course Narrative: RME: Done by MARIELENA Alan. 52-year-old female presents to ED for left foot pain since yesterday. Patient states pain started after lifting something heavy. Patient states pain is worse on movement. Patient denies any genitourinary symptoms. UA labs ordered. Medications Administered Discontinued Medications Generic Name Dose Route Start Last Admin Trade Name Chelita PRN Reason Stop Dose Admin Diazepam 5 mg 07/05/24 12:30 07/05/24 12:52 Diazepam 5 Mg Tablet PO 07/05/24 12:31 5 mg ONCE ONE Administration Morphine Sulfate 15 mg 07/05/24 12:30 07/05/24 12:52 Morphine Sulfate Immed Release 15 Mg Tablet PO 07/05/24 12:31 15 mg ONCE ONE Administration Medical Decision Making Medical Decision Making MDM Narrative: 53 yo female with PMH of chronic pain syndrome, HTN, depression, arthritis, migraines, GERD, HLD here with c/o L flank pain worse with movements but no associated cauda equina no CP/SOB at this time basic labs, US of L kidney for stone, PO pain control and medications. She has no red flags on exam is distal NV intact. Differential Diagnosis Differential Diagnoses: The differential diagnosis associated with the presentation includes back spasm, renal colic, strain Admission/Observation Consideration of admission/observation: Escalation of care including admission/observation considered feels better stable for DC possible small stone in kidney but no hydro to suggest ureteral stones Lab Data [facility] Lab Attestation statement: I reviewed the patient's lab results. 07/05/24 12:14 07/05/24 12:14 Labs: Lab Results 07/05/24 Range/Units 12:14 WBC 9.6 (4.8-10.8) X10*3/uL RBC 4.09 L (4.20-5.50) X10*6/uL Hgb 12.6 (12.0-16.0) g/dl Hct 38.8 (37.0-47.0) % MCV 94.9 (80.0-98.0) fL MCH 30.8 (27.0-33.0) pg MCHC 32.5 (31.0-35.0) g/dl RDW 12.2 (11.0-16.0) % Plt Count 331 (160-400) X10*3/uL MPV 9.3 L (9.4-12.3) fL Immature Gran % (Auto) 0.2 (0.0-0.4) % Neut % (Auto) 60.9 (45-73) % Lymph % (Auto) 29.6 (20-40) % [place] % (Auto) 7.3 (2-11) % Eos % (Auto) 1.4 (0-4) % Baso % (Auto) 0.6 (0-2) % Lymph # (Auto) 2.8 (1.2-4.9) X10*3/uL [place] # (Auto) 0.7 (0.1-1.2) X10*3/uL Eos # (Auto) 0.1 (0.0-0.4) X10*3/uL Baso # (Auto) 0.1 (0.0-0.2) X10*3/uL Abs Immat Gran (auto) 0.02 (0.00-0.03) X10*3/uL Absolute Neuts (auto) 5.8 (2.0-8.3) x10*3/uL Absolute Nucleated RBC 0.000 (0.0-0.012) X10*3/uL Nucleated RBC % (auto) 0.0 (0.0-0.2) /100WBC Sodium 140 (135-145) mmol/L Potassium 4.0 (3.3-5.1) mmol/L Chloride 105 (96-108) mmol/L Carbon Dioxide 28 (22-29) mmol/L Anion Gap 11 L (12-20) BUN 12 (9-16) mg/dL Creatinine 0.71 (0.5-1.4) mg/dL Estim Creat Clear Calc 88.7 Estimated GFR > 60 Random Glucose 120 H (60-115) mg/dL Calcium 9.5 (8.4-10.2) mg/dL Total Bilirubin 0.6 (0.0-1.0) mg/dL AST 21 (5-31) U/L ALT 21 (0-31) U/L Alkaline Phosphatase 99 (39-117) U/L Total Protein 7.8 (6.5-8.0) g/dL Albumin 4.2 (3.5-5.0) g/dL Beta HCG, Quant 4 mIU/mL Urine Color Dark Yellow Urine Appearance Clear Urine pH 5.5 (5.0-9.0) Ur Specific [place] 1.025 (1.005-1.025) Urine Protein Trace (Neg-Trace) mg/dL Urine Glucose (UA) Negative (Negative) mg/dL Urine Ketones Negative (Negative) mg/dL Urine Blood Negative (Negative) Urine Nitrite Negative (Negative) Ur Leukocyte Esterase Trace H (Negative) Urine RBC 0-2 (0-2) /HPF Urine WBC 0-5 (0-5) /HPF Ur Squamous Epith Cells 6-10 (0-2) /HPF Urine Bacteria Trace (None Seen) Hyaline Casts 3-5 (0-2) /LPF Urine Test NEGATIVE (NEGATIVE) Independent Interpretation I performed an independent interpretation of an: Ultrasound Radiology Impression Discussion of test interpretation with radiology: I have reviewed the radiologist's reading. Independent Historian Clinical information obtained from an independent historian. History obtained from or confirmed by: Spouse External Record Review External record reviewed: Office record Prescription Management I considered prescription management with: Pain Medication and Other Discharge Plan Discharge Clinical Impression: Back muscle spasm Patient Disposition: Home, Self-Care Instructions: Muscle Spasm (ED), Back Pain (ED) Additional Instructions: labs and urine reassuring ultrasound shows possible small stone in kidney but nothing obstructive or blocking these stones are not the cause of your pain at this time will start on patches and MRs return for any worsening symptoms or concerns. Prescriptions: New lidocaine 5 % adhesive patch,medicated 1 patch topical DAILY Qty: 30 0RF Rx Instructions: leave on most painful area for up to 12 hrs diazepam [Valium] 5 mg tablet 5 mg PO TID PRN (Reason: muscle spasm) Qty: 10 0RF Rx Instructions: partial fill is okay No Action cromolyn 4 % drops 1 drp ophthalmic (eye) 6XD 7 Days Qty: 10 1RF (DME) Wrist splint See Rx Instructions .Route .MEDSUPPLY Qty: 2 0RF Rx Instructions: Wear nightly & as much as possible throughout the day meloxicam 15 mg tablet 15 mg PO DAILY 90 Days Qty: 90 0RF (DME) blood pressure monitor Kit See Rx Instructions .Route Qty: 1 0RF Rx Instructions: As directed psyllium husk [Reguloid (psyllium husk)] 0.4 gram capsule 0.8 g PO BEDTIME Qty: 60 3RF gabapentin 400 mg capsule 400 mg PO TID Qty: 90 5RF losartan 25 mg tablet 25 mg PO DAILY 90 Days Qty: 90 1RF loratadine [Allergy Relief (loratadine)] 10 mg tablet 10 mg PO DAILY 90 Days Qty: 90 3RF propranolol 20 mg tablet 20 mg PO DAILY 90 Days Qty: 90 1RF oxybutynin chloride 5 mg tablet 5 mg PO BEDTIME PRN (Reason: bladder spasms) 30 Days Qty: 30 0RF atorvastatin 10 mg tablet 10 mg PO BEDTIME 90 Days Qty: 90 3RF ropinirole 0.5 mg tablet 0.5 mg PO BEDTIME 90 Days Qty: 90 1RF Rx Instructions: administer 1-3 hours before bedtime mirtazapine [Remeron] 15 mg tablet 15 mg PO BEDTIME 90 Days Qty: 90 1RF tramadol 50 mg tablet 50 mg PO TID PRN (Reason: pain) Qty: 90 5RF cyclobenzaprine 5 mg tablet 5 mg PO TID PRN (Reason: muscle spasm) 7 Days Qty: 21 0RF hydrocortisone [Proctosol HC] 2.5 % cream with perineal applicator 1 appl [place] BID PRN (Reason: hemorrhoids) Qty: 30 3RF omeprazole 40 mg capsule,delayed release(DR/EC) 40 mg PO BID 30 Days Qty: 60 3RF bisacodyl [Dulcolax (bisacodyl)] 5 mg tablet,delayed release (DR/EC) 10 mg PO BEDTIME 30 Days Qty: 60 6RF Stand Alone Forms: Work/School Release Print Language: [place]
[2024-07-05 12:18] LABS: MANUAL DIFF FLAG NO
[2024-07-05 12:20] LABS: Appearance Urine Clear; Color Urine Dark Yellow; Glucose Urine UA Negative (Negative); Leukocyte Esterase Urine Trace (Negative); Nitrite Urine Negative (Negative); PH 5.5 (5.0-9.0); Specific Gravity - Urine 1.025 (1.005-1.025); UMIC TRIGGER UACC YES; Urine Blood Negative (Negative); Urine Ketones Negative (Negative); Urine Protein Trace mg/dL (Neg-Trace)
[2024-07-05 12:21] LABS: Basophils Absolute Auto 0.1 X10*3/uL (0.0-0.2); Basophils Percent Auto 0.6 % (0-2); Eosinophils Absolute Auto 0.1 X10*3/uL (0.0-0.4); Eosinophils Percent Auto 1.4 % (0-4); Hematocrit 38.8 % (37.0-47.0); Hemoglobin 12.6 g/dl (12.0-16.0); Imm Gran Abs Auto 0.02 X10*3/uL (0.00-0.03); Imm Gran Pct Auto 0.2 % (0.0-0.4); Lymphocytes Absolute Auto 2.8 X10*3/uL (1.2-4.9); Lymphocytes Percent Auto 29.6 % (20-40); Mean Corpuscular HGB Conc 32.5 g/dl (31.0-35.0); Mean Corpuscular Hemoglobin 30.8 pg (27.0-33.0); Mean Corpuscular Volume 94.9 fL (80.0-98.0); Mean Platelet Volume 9.3 fL (9.4-12.3); Monocytes Absolute Auto 0.7 X10*3/uL (0.1-1.2); Monocytes Percent Auto 7.3 % (2-11); Neutrophils Absolute Auto 5.8 x10*3/uL (2.0-8.3); Neutrophils Percent Auto 60.9 % (45-73); Platelet Count 331 X10*3/uL (160-400); Red Blood Count 4.09 X10*6/uL (4.20-5.50); Red Cell Distribution Width 12.2 % (11.0-16.0); White Blood Count 9.6 X10*3/uL (4.8-10.8)
[2024-07-05 12:22] LABS: UPreg QC Valid YES; Urine Pregnancy NEGATIVE (NEGATIVE)
[2024-07-05 12:33] LABS: Bacteria Urine Trace (None Seen); RBC Urine 0-2 /HPF (0-2); WBC Urine 0-5 /HPF (0-5)
[2024-07-05 12:39] LABS: Alanine Aminotransferase 21 U/L (0-31); Albumin Level 4.2 g/dL (3.5-5.0); Alkaline Phosphatase 99 U/L (39-117); Anion Gap 11 (12-20); Aspartate Amino Transferase 21 U/L (5-31); Bilirubin Total 0.6 mg/dL (0.0-1.0); Blood Urea Nitrogen 12 mg/dL (9-16); Calcium 9.5 mg/dL (8.4-10.2); Carbon Dioxide 28 mmol/L (22-29); Chloride 105 mmol/L (96-108); Creatinine Clr Calc Pharmacy 88.7; Estimated Glomerular Filt Rate > 60; Glucose Random 120 mg/dL (60-115); HCG Quantitative 4 mIU/mL; Sodium 140 mmol/L (135-145); Total Protein 7.8 g/dL (6.5-8.0)
[2024-07-05] MEDS: diazePAM 5 MG TABLET PO (12:52)
[2024-07-05] MEDS: Morphine Sulfate Immed Release 15 MG TABLET PO (12:52)
[2024-07-05 14:19] VITALS: BP 154/77; PULSE 94; RESP 19; TEMP 36.6; O2SAT 99
[2024-07-05] MEDS: Ketorolac Tromethamine 30 MG/ML VIAL IM (14:24)
[2024-07-05] MEDS: HYDROmorphone HCl 1 MG/ML SYRINGE IM (14:24)
== END 2024-07-05 14:31 | disposition home or self-care (01) ==
PROVIDERS: Physician Assistant; Emergency Provider Emergency Medicine; PCP Internal Medicine
DX: R10.2 Pelvic and perineal pain (principal); M62.830 Muscle spasm of back; Z79.899 Other long term (current) drug therapy
CPT/HCPCS: 36415; 76775; 80053; 81001; 81025; 84702; 85025; 96372; 99283; 99284; J1171; J1885

== ENCOUNTER 2024-07-09 12:47 | Outpatient (AMB) | payer OTHER, SELFPAY ==
--- NOTE | 2024-07-09 12:58 | A.OFFPC_ITS ---
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 Accompanied by: Self / Same As Patient Allergies trazodone [TRAZODONE] Allergy (Intermediate, Verified 07/09/24 14:33) TACHYCARDIA Medication List - Last Reconciled 07/09/24 by Eugenia Whyte MD atorvastatin 10 mg PO BEDTIME 90 days bisacodyl (Dulcolax (bisacodyl)) 10 mg (2 x 5 mg) PO BEDTIME 30 days blood pressure monitor As directed cromolyn 4% 1 drp ophthalmic (eye) 6XD 7 days diazepam (Valium) 5 mg PO TID PRN gabapentin 400 mg PO TID hydrocortisone 2.5% (Proctosol HC) 1 appl [place] BID PRN lidocaine 5% 1 patch topical DAILY loratadine (Allergy Relief (loratadine)) 10 mg PO DAILY 90 days losartan 25 mg PO DAILY 90 days meloxicam 15 mg PO DAILY 90 days mirtazapine (Remeron) 15 mg PO BEDTIME 90 days omeprazole 40 mg PO BID 30 days oxybutynin chloride 5 mg PO BEDTIME PRN 30 days propranolol 20 mg PO DAILY 90 days psyllium husk (Reguloid (psyllium husk)) 0.8 grams (2 x 0.4 gram) PO BEDTIME ropinirole 0.5 mg PO BEDTIME 90 days tramadol 50 mg PO TID PRN [Wrist splint Wear nightly & as much as possible throughout the day] Tobacco use date assessed: 02/12/24 Dental Screening Dental Screen Date: 02/12/24 HPI HPI Comments History of Present Illness Details The patient is a 53-year-old female presenting with lower back pain and associated urinary symptoms. The back pain began gradually and is localized on the left side, sometimes extending to what she describes as a hard belly and the chest. The pain started around July 05 and was evaluated in an emergency setting on a Saturday, where laboratory tests were performed and yielded normal results. An ultrasound was also conducted, revealing small kidney stones. The patient does not have a current urology consultation. The pain has not improved, causing discomfort in her abdomen, making it feel crampy at times and is associated with constipation, having gone three days without a bowel movement. She associates the back pain with her history of restless legs syndrome and describes migraine-prone headaches but has not experienced relief yet. The patient was provided diazepam in an emergency setting, which she found ineffective and unsatisfactory. She also suffers from hypertension and blood pressure is elevated. Blood pressure will be recheck in 3 weeks by nurse navigator. As per patient she is compliant with losartan. She is accompanied by today. [facility] Medical History (Updated 07/09/24 @ 15:57 by Eugenia Whyte MD) Hemorrhoids with complication Constipation Cervical spondylosis Cervical radiculopathy Hyperkalemia Carpal tunnel syndrome Physical exam Cervical paraspinal muscle spasm Physical exam Right elbow pain Cervicalgia Medication monitoring encounter Left foot pain Breast pain Breast discharge Irregular bleeding Right knee pain Left shoulder pain COVID-19 Vaginal discharge Well woman exam with routine gynecological exam Pre-diabetes Pre-op examination Osteoarthritis of right knee Degeneration, intervertebral disc, cervical Migraines Class 1 obesity due to excess calories without serious comorbidity with body mass index (BMI) of 30.0 to 30.9 in adult Left shoulder pain Pure hypercholesterolemia Fibromyalgia GERD (gastroesophageal reflux disease) Surgical History Left carpal tunnel syndrome H/O colonoscopy H/O laminectomy Hx of tubal ligation History of laparoscopic cholecystectomy Family History Father No problems noted. 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 Kishor Chavira, B.W. Tae Graff and colleagues, with an educational kelley from [employer]. Review of Systems Const All systems reviewed & are unremarkable except as noted in HPI and below Card Denies chest pain at rest, Denies chest pain with activity, Denies edema, Denies irregular heart rhythm, Denies claudication, Denies dyspnea, Denies dyspnea on exertion, Denies orthopnea, Denies paroxysmal nocturnal dyspnea and Denies slow heart rate Resp Denies cough, Denies dyspnea and Denies dyspnea on exertion Musc Denies atrophy, Denies deformity and Denies limited range of motion Physical exam (Primary Care) Vital Signs: Last Vital Signs BP 140/92 H 07/09/24 13:51 BMI result Body Mass Index 34.8 BMI Assessment/Plan discussion: High BMI High, discussed plan: lifestyle, weight reduction, dietary and physical activity Tobacco/Smoking Status: Tobacco use Status Tobacco use date assessed 02/12/24 07/09/24 13:02 Patient Tobacco Use Status Never used Tobacco 07/09/24 13:02 e-Cigarette/Vaping Use Never Used 07/09/24 13:02 Thrive Assessment: Date of Thrive Assessment Date Thrive assessed 02/12/24 07/09/24 13:02 Const General: acute distress mild Resp Effort & Inspection: normal respiratory effort Auscultation: clear to auscultation bilaterally Cardio Jugular venous distension: no JVD Rate: regular rate Rhythm: regular rhythm Heart sounds: S1 normal heart sound present and S2 normal heart sound present Extrem General: Yes full ROM Office Procedures Flu Questionnaire Does the patient have a severe egg allergy?: No Immunizations Fluarix Triv [id number] (PF) 45 mcg (15 mcg x 3)/0.5 mL IM syringe Performing Provider: Eugenia Whyte MD Performing Location: [facility] [place] [facility] Documented (not given) by: VANESSA Simmons on 07/09/24 13:54 Reason Not Given: Patient Refused Coding Level of Care Code Est Pt Level 4 (33561) Complex EM visit Add On G2211 Diagnoses Lumbar paraspinal muscle spasm M62.830 Nephrolithiasis N20.0 Migraine without aura and without status migrainosus, not intractable G43.009 Migraine type: without aura Status migrainosus presence: without status migrainosus Intractability: not intractable Mild recurrent major depression F33.0 Essential hypertension I10 Pure hypercholesterolemia E78.00 Gastroesophageal reflux disease without esophagitis K21.9 Esophagitis presence: without esophagitis Hyperlipidemia E78.5 Time Spent (min) 23 Assessment & Plan Assessment & Plan (1) Lumbar paraspinal muscle spasm: Code(s): M62.830 - Muscle spasm of back Category: Medical (2) Nephrolithiasis: Code(s): N20.0 - Calculus of kidney Category: Medical (3) Migraines: Code(s): G43.909 - Migraine, unspecified, not intractable, without status migrainosus Category: Medical Qualifiers: Migraine type: without aura Status migrainosus presence: without status migrainosus Intractability: not intractable Qualified Code(s): G43.009 - Migraine without aura, not intractable, without status migrainosus (4) Mild recurrent major depression: Code(s): F33.0 - Major depressive disorder, recurrent, mild Category: Medical (5) Essential hypertension: Code(s): I10 - Essential (primary) hypertension Category: Medical (6) Pure hypercholesterolemia: Code(s): E78.00 - Pure hypercholesterolemia, unspecified Category: Medical (7) GERD (gastroesophageal reflux disease): Code(s): K21.9 - Gastro-esophageal reflux disease without esophagitis Category: Medical Qualifiers: Esophagitis presence: without esophagitis Qualified Code(s): K21.9 - Gastro-esophageal reflux disease without esophagitis (8) Hyperlipidemia: Code(s): E78.5 - Hyperlipidemia, unspecified Category: Medical Plan - For Essential Hypertension: Continue current medications as prescribed. - For Hyperlipidemia: Continue atorvastatin as prescribed. - For Allergic Rhinitis: Use loratadine as needed. - For Insomnia: Continue mirtazapine at night. - For Gastroesophageal Reflux Disease GERD): Use omeprazole as prescribed. - For Urinary Incontinence: Continue use of oxybutynin. - For Migraine: Continue propranolol and reassess effectiveness. - For Restless Legs Syndrome: Continue ropinirole at night. - For Lower Back Pain: Prescribe a specific muscle relaxant as suggested. Assess further need for pain management through patches. - For Constipation: Provide appropriate bowel regimen. Patient was informed and verbally consented to the use of an ambient scribe for clinic note documentation during this visit. I discussed the need to manage the patient?s lower back pain, which appears to be contributing to her abdominal discomfort and constipation. A muscle relaxant will be used for symptomatic relief. I advised that hydration is essential, especially given the findings of small kidney stones, and adding lemon to water may help naturally alleviate the issue. Leave from work for a few days is recommended to manage her health. We discussed the issues with diazepam and opted for alternatives that align with her medication profile better, emphasizing that diazepam is not a muscle relaxant. Orders: Orders Influenza [id number] Immunization Today Z23 - Encounter for immunization Referrals Urology Referral N20.0 - Calculus of kidney Medications: New methocarbamol 750 mg PO Q8H 90 tabs 0RF 30 days Patient Instructions: - Continue current medications for hypertension, hyperlipidemia, GERD, and urinary incontinence as prescribed. - Use muscle relaxants as directed to alleviate back pain. - Increase water intake, considering adding lemon to aid with kidney stones. - Seek work leave for three to four days for health recovery. - Continue patches for pain management if previously effective. - Consult a urologist for further evaluation of kidney stones, on a non-urgent basis. - Monitor and report any changes in symptoms or side effects from medications. - Return for re-evaluation if symptoms persist or worsen. - Maintain follow-up visits as scheduled.
[2024-07-09 13:51] VITALS: BP 140/92; BMI 34.8
== END 2024-07-09 14:47 | disposition home or self-care (01) ==
PROVIDERS: PCP Internal Medicine; Visit Provider Internal Medicine
DX: M62.830 Muscle spasm of back (principal); N20.0 Calculus of kidney; G43.009 Migraine without aura, not intractable, without status migrainosus; F33.0 Major depressive disorder, recurrent, mild; I10 Essential (primary) hypertension; E78.00 Pure hypercholesterolemia, unspecified; K21.9 Gastro-esophageal reflux disease without esophagitis; E78.5 Hyperlipidemia, unspecified; Z23 Encounter for immunization

== ENCOUNTER → 2024-07-09 12:47 | Outpatient (BNVA) | payer OTHER, SELFPAY | PROVIDERS: PCP Internal Medicine; Visit Provider Internal Medicine | DX: N20.0 Calculus of kidney (principal); M62.830 Muscle spasm of back; F33.0 Major depressive disorder, recurrent, mild; I10 Essential (primary) hypertension; E78.00 Pure hypercholesterolemia, unspecified; K21.9 Gastro-esophageal reflux disease without esophagitis; G43.009 Migraine without aura, not intractable, without status migrainosus | CPT/HCPCS: 90471; 99212 ==

== ENCOUNTER 2024-07-24 06:43 | Day surgery (SDC) | payer OTHER, SELFPAY ==
[2024-07-22 08:56] VITALS: BMI 34.0
--- NOTE | 2024-07-23 10:16 | HO.ANESPROP2 ---
Documented by User: Deyanira Del Valle NP 07/23/24 10:17 HPI - Anesthesia Eval Consult details Narrative: 53yo F for EAU, Hemorrhoidectomy PMFSH Active Problems Active Problems: All Active Problems Hyperlipidemia (Acute) Essential hypertension (Acute) Lumbar paraspinal muscle spasm (Acute) Nephrolithiasis (Acute) Hemorrhoids with complication (Acute) Paresthesia of right leg (Acute) Ankle pain, right (Acute) Constipation (Acute) Pain of ulnar side of wrist (Acute) Dysphagia (Acute) Chronic pain syndrome (Acute) Spondylosis of cervical region without myelopathy or radiculopathy (Acute) Essential hypertension (Acute) Occipital neuralgia (Acute) Postlaminectomy syndrome, cervical (Acute) Carpal tunnel syndrome on both sides (Acute) Hemorrhoids (Acute) Stress incontinence, female (Acute Unknown) Myofascial pain (Acute) Mild recurrent major depression (Acute) Pre-op examination (Acute) Osteoarthritis of right knee (Acute) Degeneration, intervertebral disc, cervical (Acute) Migraines (Acute) Class 1 obesity due to excess calories without serious comorbidity with body mass index (BMI) of 30.0 to 30.9 in adult (Acute) Left shoulder pain (Acute) Pure hypercholesterolemia (Acute) Fibromyalgia (Acute) GERD (gastroesophageal reflux disease) (Acute) Past Medical History Medical History Hemorrhoids with complication Constipation Cervical spondylosis Cervical radiculopathy Hyperkalemia Carpal tunnel syndrome Physical exam Cervical paraspinal muscle spasm Physical exam Right elbow pain Cervicalgia Medication monitoring encounter Left foot pain Breast pain Breast discharge Irregular bleeding Right knee pain Left shoulder pain COVID-19 Vaginal discharge Well woman exam with routine gynecological exam Pre-diabetes Pre-op examination Osteoarthritis of right knee Degeneration, intervertebral disc, cervical Migraines Class 1 obesity due to excess calories without serious comorbidity with body mass index (BMI) of 30.0 to 30.9 in adult Left shoulder pain Pure hypercholesterolemia Fibromyalgia GERD (gastroesophageal reflux disease) Family History Family History Father No problems noted. Mother HX: breast cancer Hypertension Hypercholesterolemia Maternal Grandmother Hypertension Diabetes Family/Other HX: breast cancer Family history of problems with anesthesia: No Surgical History Surgical History Left carpal tunnel syndrome H/O colonoscopy H/O laminectomy Hx of tubal ligation History of laparoscopic cholecystectomy History of Problems with Anesthesia: No Social History Social History Housing: Apartment Alcohol intake: never Patient Tobacco Use Status: Never used Tobacco e-Cigarette/Vaping Use: Never Used Second Hand Smoke Exposure: No Advance Directives: No Advance Directives Information Provided: Yes service: No Current occupational status: employed 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 Current occupational exposures/hazards: No Gender identity: Female Cognitive needs: No Hearing needs: No Vision needs: No Meds Allergies Allergy/AdvReac Type Severity Reaction Status Date / Time trazodone [TRAZODONE] Allergy Intermediate TACHYCARDIA Verified 07/24/24 07:11 Exam Height,Weight and Vital Signs: Height 5 ft 1 in Weight 81.647 kg Pertinent Lab Results Pertinent Lab Results: Laboratory Tests 07/05/24 12:14 WBC 9.6 Hgb 12.6 Hct 38.8 Plt Count 331 Sodium 140 Potassium 4.0 Chloride 105 Carbon Dioxide 28 BUN 12 Creatinine 0.71 Assessment and Plan Assessment Anesthesia Assessment: Chart Reviewed Final Anesthetic Review Family History of Problems with Anesthesia: No History of Problems with Anesthesia: No Documented by User: Leidy Gallagher MD 07/24/24 07:24 [facility] Past Medical History Medical History Hemorrhoids with complication Constipation Cervical spondylosis Cervical radiculopathy Hyperkalemia Carpal tunnel syndrome Physical exam Cervical paraspinal muscle spasm Physical exam Right elbow pain Cervicalgia Medication monitoring encounter Left foot pain Breast pain Breast discharge Irregular bleeding Right knee pain Left shoulder pain COVID-19 Vaginal discharge Well woman exam with routine gynecological exam Pre-diabetes Pre-op examination Osteoarthritis of right knee Degeneration, intervertebral disc, cervical Migraines Class 1 obesity due to excess calories without serious comorbidity with body mass index (BMI) of 30.0 to 30.9 in adult Left shoulder pain Pure hypercholesterolemia Fibromyalgia GERD (gastroesophageal reflux disease) Family History Family History Father No problems noted. 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 Current occupational exposures/hazards: No Gender identity: Female Cognitive needs: No Hearing needs: No Vision needs: No Meds Allergies Allergy/AdvReac Type Severity Reaction Status Date / Time trazodone [TRAZODONE] Allergy Intermediate TACHYCARDIA Verified 07/24/24 07:11 Exam Airway Mallampati Class: II TM Dist: >3cm Neck ROM: Full Partial: Upper (2 teeth) Heart: rrr Lungs: cta Assessment and Plan Assessment Anesthesia Assessment: Anesthesia Plan Discussed Final Anesthetic Review NPO: Yes ASA Class: II Final Preanesthetic Review: No Changes in Pt Med Stat, Meds/Allgs Chart Reviewed and Consent Obtained/Reviewed Patient Risk: Low Procedure Risk: Low Anesthetic Plan Anesthetic Plan: GA Disposition: Standard PACU
[2024-07-24] VITALS (13 sets, daily range): BP systolic 125–161; BP diastolic 73–107; PULSE 65–88; RESP 12–16; TEMP 36.2–36.9; O2SAT 92–99; BMI 34.5
--- NOTE | 2024-07-24 07:28 | MHC.SHP ---
Pre-Procedural Eval Section A - 24 Hr Update-Section A only Date of Service: 07/24/24 The patient is an INPATIENT: No Changes since office visit: No Cold of Flu in the past 2 weeks, No New Medical Problems, No Changes in Medication and No Patient answered all questions The patient has been examined within 24 hours of the surgical procedure. The History & Physical has been completed within 30 days and I have reviewed it.: Yes Section B - Complete if H&P > 30 days Chief Complaint: Other hemorrhoids Allergies: Allergies Allergy/AdvReac Type Severity Reaction Status Date / Time trazodone [TRAZODONE] Allergy Intermediate TACHYCARDIA Verified 07/24/24 07:11 Plan I have reviewed the history and physical and performed a pertinent physical examination on my patient. No changes have occurred unless specified. Time Spent With Patient Time: Total time managing care of this patient today ____ minutes.
[2024-07-24] MEDS: Lactated Ringers 1,000 ML 100 ML IVCONT (07:37)
--- NOTE | 2024-07-24 07:57 | PC.NURSE ---
Patient voiced in preop I have difficulty with my throat and swallowing, they are going to take a biopsy soon . Dr. Gallagher made aware. Last GI note states upper endoscopy this month. Okay to proceed at this time per anesthesia.
--- NOTE | 2024-07-24 08:41 | P.OP_ITS ---
Operative Note Operative Note Date of Service: 07/24/24 Narrative: Preop diagnosis: Internal and external hemorrhoids with pain and swelling Postop diagnosis: The same Procedure: Exam under anesthesia hemorrhoidectomy x2 columns Surgeon: Anthony Nair MD accounting administrative assistant: MARIELENA Grover The patient is a 53 year old female who has had chronic complaints of pain, and frequent swelling over hemorrhoids and wanted to proceed with hemorrhoidectomy. She understood the technique of the planned procedure as well as the risks, benefits, and alternatives. She was brought to the operating room. She was placed in prone jeff-knife position under general anesthesia via endotracheal tube. The buttocks were retracted with wide tape laterally. The perianal area was prepped and draped in the usual sterile fashion. A surgical time-out was done. The patient received Cefotan 2 g IV preoperatively Examination of the anal orifice revealed hemorrhoidal columns, the largest of which were on the lateral aspect of the right side as well as the anterior area. I inserted the Brian Strickland retractor. I examined the anal canal circumferentially. There were no other lesions. There was smaller hemorrhoidal columns internally I applied a Gerber grasper at the hemorrhoidal column on the right side and retracted this out in the field. I made a [id number] stitch at the pedicle the dentate line. This was done using a chromic 3-0. I made an incision around this hemorrhoidal column to the perianal skin with a blade 15. I excised this hemorrhoidal column along this incision above the plane of the sphincters with scissors. I closed this incision with a running chromic 3-0 stitch with additional hemostatic sutures placed I then retracted the 2nd hemorrhoidal column anteriorly with a Gerber grasper. I made a [id number] stitch at the pedicle. I made an incision around this column to the perianal skin and excise this above the plane of the sphincters using scissors. I closed the incision with a running chromic 3-0 stitch Once hemostasis was confirmed, I proceeded to infiltrate the perianal area with Marcaine 0.5% for postop analgesia. Dressings were applied. The procedure was completed The patient tolerated procedure well. There were no immediate complications. Initial and final counts of sponges and instruments were correct. Estimated blood loss was about 25 cc The patient was extubated without difficulty and transferred to the recovery room with stable vital signs.
[2024-07-24] MEDS: oxyCODONE HCl Immed Release 5 MG TABLET PO (09:10)
[2024-07-24] MEDS: fentaNYL citrate/PF 100 MCG/2 ML VIAL 50 MCG IVPUSH ×3 (09:14→09:38)
[2024-07-24] MEDS: Ketorolac Tromethamine 15 MG/ML VIAL IVPUSH (09:14)
== END 2024-07-24 10:32 | disposition home or self-care (01) ==
PROVIDERS: PCP Internal Medicine; Visit Provider Surgery
PROC: (CPT 46260; principal; 2024-07-24 08:30)
DX: K64.8 Other hemorrhoids (principal); K64.4 Residual hemorrhoidal skin tags; K59.00 Constipation, unspecified; K21.9 Gastro-esophageal reflux disease without esophagitis; R73.03 Prediabetes; E78.00 Pure hypercholesterolemia, unspecified; M79.7 Fibromyalgia; E66.811 Obesity, class 1; Z68.34 Body mass index [BMI] 34.0-34.9, adult; Z79.899 Other long term (current) drug therapy; Z88.8 Allergy status to other drugs, medicaments and biological substances; Z98.890 Other specified postprocedural states
CPT/HCPCS: 46260; 88304; J1100; J1885; J2003; J2250; J2405; J2704; J2795; J3010

== ENCOUNTER → 2024-07-24 06:43 | Outpatient (BNV) | payer OTHER, SELFPAY | PROVIDERS: PCP Internal Medicine; Visit Provider Surgery | DX: K64.8 Other hemorrhoids (principal) | CPT/HCPCS: 46260 ==

== ENCOUNTER 2024-08-10 09:29 | Outpatient (AMB) | payer OTHER, SELFPAY ==
--- NOTE | 2024-08-10 09:34 | MHC.OFFVIS ---
Intake Visit Reasons: s/p hemorrhoidectomy Intake Note: This patient presents for post-op assessment status post hemorrhoidectomy. Pt c/o; reports pain, reports when she wipes she still feels some lumps, reports no rectal bleeding. Vice President For Instruction Required: Yes Vice President For Instruction Services: Vice President For Instruction Present Vice President For Instruction Name: [place] Information Interpreted: non-clinical & clinical Accompanied by: Self / Same As Patient Allergies trazodone [TRAZODONE] Allergy (Intermediate, Verified 08/10/24 09:45) TACHYCARDIA HPI HPI s/p hemorrhoidectomy: Details: She underwent hemorrhoidectomy x2 columns last 07/24/2024. She tolerated the procedure well. She currently describes some burning pain periodically but this has been slowly improving. She is able to sit down on a chair. [facility] Medical History Hemorrhoids with complication Carpal tunnel syndrome Cervical paraspinal muscle spasm Constipation Pre-diabetes Medication monitoring encounter Osteoarthritis of right knee Cervical radiculopathy Degeneration, intervertebral disc, cervical Cervical spondylosis Cervicalgia Irregular bleeding Migraines Class 1 obesity due to excess calories without serious comorbidity with body mass index (BMI) of 30.0 to 30.9 in adult Pure hypercholesterolemia Fibromyalgia GERD (gastroesophageal reflux disease) Surgical History History of carpal tunnel release Hx of hemorrhoidectomy (~07/24/24) H/O colonoscopy H/O laminectomy Hx of tubal ligation History of laparoscopic cholecystectomy Family History Father No problems noted. 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 Current occupational exposures/hazards: No Gender identity: Female Cognitive needs: No Hearing needs: No Vision needs: No Review of Systems Const Denies chills and Denies fever(s) Card Denies chest pain Resp Denies cough GI Denies abdominal pain Physical Exam Const General: comfortable and no acute distress Resp Effort & Inspection: normal respiratory effort GI Other: Rectal exam shows the hemorrhoidectomy sites to be healing well, some residual edema of adjacent hemorrhoids, no signs of any infection Assessment & Plan Assessment & Plan (1) Hemorrhoids with complication: Code(s): K64.8 - Other hemorrhoids Category: Medical Plan: Status post hemorrhoidectomy x2 columns. Hemorrhoidectomy sites are healing well Her path report shows hemorrhoids. I advised her to avoid straining and constipation. She is to continue doing hot Sitz baths. She can follow up on a p.r.n. basis. Coding Level of Care Code Global (98629) Diagnoses Hemorrhoids with complication K64.8
== END 2024-08-10 09:54 | disposition home or self-care (01) ==
PROVIDERS: PCP Internal Medicine; Visit Provider Surgery
DX: K64.8 Other hemorrhoids (principal)
CPT/HCPCS: 99024

== ENCOUNTER → 2024-08-10 09:29 | Outpatient (BNVA) | payer OTHER, SELFPAY | PROVIDERS: PCP Internal Medicine; Visit Provider Surgery | DX: K64.8 Other hemorrhoids (principal) | CPT/HCPCS: 99212 ==

== ENCOUNTER 2024-08-11 07:35 | Day surgery (SDC) | payer OTHER, SELFPAY ==
[2024-08-07 13:52] VITALS: BMI 34.0
--- NOTE | 2024-08-10 12:13 | P.CONAN_ITS ---
Documented by User: Deyanira Del Valle NP 08/10/24 12:13 HPI - Anesthesia Eval Consult details Narrative: 53yo F for Upper Endoscopy PMFSH Active Problems Active Problems: All Active Problems Hyperlipidemia (Acute) Essential hypertension (Acute) Lumbar paraspinal muscle spasm (Acute) Nephrolithiasis (Acute) Paresthesia of right leg (Acute) Ankle pain, right (Acute) Pain of ulnar side of wrist (Acute) Dysphagia (Acute) Chronic pain syndrome (Acute) Spondylosis of cervical region without myelopathy or radiculopathy (Acute) Essential hypertension (Acute) Occipital neuralgia (Acute) Postlaminectomy syndrome, cervical (Acute) Carpal tunnel syndrome on both sides (Acute) Hemorrhoids (Acute) Pre-op examination (Acute) Mild recurrent major depression (Acute) Myofascial pain (Acute) Stress incontinence, female (Acute Unknown) Left shoulder pain (Acute) Hemorrhoids with complication (Acute) Constipation (Acute) Osteoarthritis of right knee (Acute) Degeneration, intervertebral disc, cervical (Acute) Migraines (Acute) Class 1 obesity due to excess calories without serious comorbidity with body mass index (BMI) of 30.0 to 30.9 in adult (Acute) Pure hypercholesterolemia (Acute) Fibromyalgia (Acute) GERD (gastroesophageal reflux disease) (Acute) Past Medical History Medical History Hemorrhoids with complication Carpal tunnel syndrome Cervical paraspinal muscle spasm Constipation Pre-diabetes Medication monitoring encounter Osteoarthritis of right knee Cervical radiculopathy Degeneration, intervertebral disc, cervical Cervical spondylosis Cervicalgia Irregular bleeding Migraines Class 1 obesity due to excess calories without serious comorbidity with body mass index (BMI) of 30.0 to 30.9 in adult Pure hypercholesterolemia Fibromyalgia GERD (gastroesophageal reflux disease) Family History Family History Father No problems noted. Mother HX: breast cancer Hypertension Hypercholesterolemia Maternal Grandmother Hypertension Diabetes Family/Other HX: breast cancer Family history of problems with anesthesia: No Surgical History Surgical History History of carpal tunnel release Hx of hemorrhoidectomy (~07/24/24) H/O colonoscopy H/O laminectomy Hx of tubal ligation History of laparoscopic cholecystectomy History of Problems with Anesthesia: No Social History Social History Housing: Apartment Are you a primary med care manager to a significant other at home: No Do you presently have visiting nurse or other home services: No Alcohol intake: never Patient Tobacco Use Status: Never used Tobacco e-Cigarette/Vaping Use: Never Used Second Hand Smoke Exposure: No Advance Directives: No Advance Directives Information Provided: Yes service: No Current occupational status: employed 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 Current occupational exposures/hazards: No Gender identity: Female Cognitive needs: No Hearing needs: No Vision needs: No Meds Allergies Allergy/AdvReac Type Severity Reaction Status Date / Time trazodone [TRAZODONE] Allergy Intermediate TACHYCARDIA Verified 08/10/24 09:45 Exam Height,Weight and Vital Signs: Height 5 ft 1 in Weight 81.647 kg Assessment and Plan Assessment Anesthesia Assessment: Chart Reviewed Final Anesthetic Review Family History of Problems with Anesthesia: No History of Problems with Anesthesia: No Documented by User: Leticia Snow MD 08/11/24 09:16 [facility] Past Medical History Medical History Hemorrhoids with complication Carpal tunnel syndrome Cervical paraspinal muscle spasm Constipation Pre-diabetes Medication monitoring encounter Osteoarthritis of right knee Cervical radiculopathy Degeneration, intervertebral disc, cervical Cervical spondylosis Cervicalgia Irregular bleeding Migraines Class 1 obesity due to excess calories without serious comorbidity with body mass index (BMI) of 30.0 to 30.9 in adult Pure hypercholesterolemia Fibromyalgia GERD (gastroesophageal reflux disease) Family History Family History Father No problems noted. Mother HX: breast cancer Hypertension Hypercholesterolemia Maternal Grandmother Hypertension Diabetes Family/Other HX: breast cancer Family history of problems with anesthesia: No Surgical History Surgical History History of carpal tunnel release Hx of hemorrhoidectomy (~07/24/24) H/O colonoscopy H/O laminectomy Hx of tubal ligation History of laparoscopic cholecystectomy History of Problems with Anesthesia: No Social History Social History Housing: Apartment Are you a primary med care manager to a significant other at home: No Do you presently have visiting nurse or other home services: No Alcohol intake: never Patient Tobacco Use Status: Never used Tobacco e-Cigarette/Vaping Use: Never Used Second Hand Smoke Exposure: No Advance Directives: No Advance Directives Information Provided: Yes service: No Current occupational status: employed 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 Current occupational exposures/hazards: No Gender identity: Female Cognitive needs: No Hearing needs: No Vision needs: No Meds Allergies Allergy/AdvReac Type Severity Reaction Status Date / Time trazodone [TRAZODONE] Allergy Intermediate TACHYCARDIA Verified 08/10/24 09:45 Exam Height,Weight and Vital Signs: Height 5 ft 1 in Weight 81.647 kg Vital Signs Temp Pulse Resp BP Pulse Ox O2 Del Method 08/11/24 08:03 129/84 08/11/24 07:51 98.5 F 93 20 147/100 H 97 Room Air Airway Mallampati Class: II TM Dist: >3cm Neck ROM: Limited Loose/Missing/Broken Teeth: No Heart: RRR Lungs: CTAB Assessment and Plan Assessment Anesthesia Assessment: Anesthesia Plan Discussed and Chart Reviewed Final Anesthetic Review Family History of Problems with Anesthesia: No History of Problems with Anesthesia: No NPO: Yes ASA Class: II Final Preanesthetic Review: No Changes in Pt Med Stat, Meds/Allgs Chart Reviewed, Consent Obtained/Reviewed and Anes Risks/Benef Reviewed Patient Risk: Intermediate Procedure Risk: Low Assessment/Block/Sedation in SS: Assess/Block/Sedation-SS Anesthetic Plan Anesthetic Plan: TIVA Disposition: Standard PACU
[2024-08-11 07:51] VITALS: BP 147/100; PULSE 93; RESP 20; TEMP 36.9; O2SAT 97; BMI 34.2
[2024-08-11 08:03] VITALS: BP 129/84
[2024-08-11] MEDS: Lactated Ringers 1,000 ML 100 ML IVCONT (08:07)
--- NOTE | 2024-08-11 08:07 | P.HPSUR_ITS ---
Pre-Procedural Eval Section A - 24 Hr Update-Section A only Date of Service: 08/11/24 Section B - Complete if H&P > 30 days Chief Complaint: Dysphagia, pharyngeal phase Relevant Family History (Specify if Yes): No Relevant Social History: None Present Medications: see Short Stay Collaborative assessment Medical History: Significant History (Hemorrhoids with complication Carpal tunnel syndrome Cervical paraspinal muscle spasm Constipation Pre-diabetes Medication monitoring encounter Osteoarthritis of right knee Cervical radiculopathy Degeneration, intervertebral disc, cervical Cervical spondylosis C ervicalgia Irregular bleeding Migraine) History of Previous Operations: Relevant previous surgery/procedure and date(s) (History of carpal tunnel release Hx of hemorrhoidectomy (~07/24/24) H/O colonoscopy H/O laminectomy Hx of tubal ligation History of laparoscopic cholecystectomy) Allergies: Allergies Allergy/AdvReac Type Severity Reaction Status Date / Time trazodone [TRAZODONE] Allergy Intermediate TACHYCARDIA Verified 08/10/24 09:45 Review of Systems Sugical H&P ROS: Negative: Constitution, Cardiovascular, Respiratory, Neurological, Psychiatric, Hem-Onc, Allergic/Immunologic, Gastrointestinal, Genitourinary, Musculoskeletal, Integumentary, Endocrine and Eyes/Ears/Nose/Throat Exam Surgical H&P Exam: Normal: HEENT, Normal: Heart, Normal: Lungs, Normal: Extremities, Normal: Abdomen, Normal: Skin and Normal: Neurological Plan Diagnosis/Plan: Unchanged I have reviewed the history and physical and performed a pertinent physical examination on my patient. No changes have occurred unless specified. Time Spent With Patient Time: Total time managing care of this patient today ____ minutes.
--- NOTE | 2024-08-11 09:31 | W.PM.OPN ---
Operative Note Operative Note Date of Service: 08/11/24 Narrative: Procedure Description: EGD Indication: dysphagia Anesthesia: MAC FLEXIBLE TRANSORAL UPPER GASTROINTESTINAL ENDOSCOPY UPPER ENDOSCOPY Consent: Indications for the procedure and potential complications of bleeding, perforation, reaction to medications and missed diagnosis were discussed with the patient and informed consent was obtained. Instrument: Olympus GIF H 190 J mid size upper endoscope Monitoring: Vital signs and clinical assessment, continuous EKG monitoring, Pulse oximetry, Carbon Dioxide monitoring and blood pressure monitoring were done throughout the procedure. Procedure: The patient was placed in the left lateral decubitis position and pre-procedure medications were administered and a bite block was placed. The endoscope was inserted into the mouth and advanced under direct vision to the third part of duodenum. A careful inspection was made as the upper endoscope was withdrawn including a retroflexed examination of the proximal stomach; Findings and interventions are described below. Findings: Larynx:normal Esophagus: GE junction at 37 cm, diaphragm hiatus at 37 cm, ridging of mucosa noted, bx taken from distal and proximal esophagus and GEJ, dilation of UES and LEs to 20 mm, no tears seen Stomach: patchy erythema with atrophy . Biopsies were obtained. Grade 2 flap valve on retroflexed examination of the cardia. Duodenum: Normal bulb and descending duodenum, Intervention: Biopsies as noted above, balloon dilation Impression/Findings: atrophic gastritis PLAN: if h pylori pos then treat make sure taking PPI, if not working can change GERD precautions
[2024-08-11 09:38] VITALS: BP 112/69; PULSE 88; RESP 24; TEMP 36.4; O2SAT 96
[2024-08-11 09:53] VITALS: BP 125/77; PULSE 88; RESP 22; TEMP 36.9; O2SAT 97
== END 2024-08-11 10:44 | disposition home or self-care (01) ==
PROVIDERS: PCP Internal Medicine; Visit Provider Internal Medicine Gastroenterology
PROC: 0DJ08ZZ Inspection of Upper Intestinal Tract, Via Natural or Artificial Opening Endoscopic (ICD-10-PCS; CPT 43235; principal; 2024-08-11 09:00)
DX: K29.40 Chronic atrophic gastritis without bleeding (principal); R13.13 Dysphagia, pharyngeal phase; K21.9 Gastro-esophageal reflux disease without esophagitis; I10 Essential (primary) hypertension; E78.00 Pure hypercholesterolemia, unspecified; G89.4 Chronic pain syndrome; Z90.49 Acquired absence of other specified parts of digestive tract; Z98.51 Tubal ligation status; Z79.02 Long term (current) use of antithrombotics/antiplatelets; Z79.899 Other long term (current) drug therapy
CPT/HCPCS: 43249; 43239; 88305; 88342; J2003; J2704

== ENCOUNTER → 2024-08-11 07:35 | Outpatient (BNV) | payer OTHER, SELFPAY | PROVIDERS: PCP Internal Medicine; Visit Provider Internal Medicine Gastroenterology | DX: R13.10 Dysphagia, unspecified (principal); K29.40 Chronic atrophic gastritis without bleeding | CPT/HCPCS: 43239; 43249 ==

== ENCOUNTER 2024-08-17 09:08 | Outpatient (AMB) | payer OTHER, SELFPAY ==
--- NOTE | 2024-08-17 09:22 | MHC.PC.OV ---
Vital Signs 08/17/24 09:23 08/17/24 09:59 Height 5 ft 1 in Weight 179 lb BMI 33.8 BP 142/90 H 140/90 H Blood Pressure Location Lt brachial Lt brachial Position Sitting Sitting Intake Visit Reasons: Annual Exam Intake Note: Patient here for a physical exam Signing Agent Required: No Accompanied by: Self / Same As Patient Allergies trazodone [TRAZODONE] Allergy (Intermediate, Verified 08/17/24 09:48) TACHYCARDIA Medication List - Last Reconciled 08/17/24 by Eugenia Whyte MD atorvastatin 10 mg PO BEDTIME 90 days cromolyn 4% 1 drp ophthalmic (eye) 6XD 7 days gabapentin 400 mg PO TID loratadine (Allergy Relief (loratadine)) 10 mg PO DAILY 90 days losartan 25 mg PO DAILY 90 days mirtazapine (Remeron) 15 mg PO BEDTIME 90 days omeprazole 40 mg PO BID 30 days oxybutynin chloride 5 mg PO BEDTIME PRN 30 days propranolol 20 mg PO DAILY 90 days psyllium husk (Reguloid (psyllium husk)) 0.8 grams (2 x 0.4 gram) PO BEDTIME ropinirole 0.5 mg PO BEDTIME 90 days Tobacco use date assessed: 02/12/24 Dental Screening Dental Screen Date: 08/17/24 Did you have a dental visit in the last 12 months?: No Did you have a dental problem in the last 6 months where you did not have access to dental care?: No Was dental information given to patient?: Patient has dentist HPI HPI Comments History of Present Illness Details The patient is a 53-year-old female presenting for her physical exam. The patient's history includes a diagnosis of hypertension, controlled previously with Losartan 25 mg. For reported elevated readings, I decided to adjust her medication to Losartan 50 mg. The patient also has a history of gastritis, previously determined through an endoscopy which revealed inflammation requiring twice-daily omeprazole. Additionally, she experiences insomnia, for which she takes Mirtazapine at night. Urinary urgency is managed with oxybutynin. Treatment for restless legs syndrome consists of nightly ropinirole administration. Her surgical history includes recent hemorrhoid excision, previous carpal tunnel release, spinal diskectomy, tubal ligation, and cholecystectomy. The family history notes breast cancer and cardiovascular risk factors including hypercholesterolemia and hypertension on the maternal side. The patient denies recent depression but reports some pain post-hemorrhoid surgery, indicating recovery is ongoing. - Mammogram done this year - Colonoscopy performed last year (2022) - Endoscopy revealing gastritis this year - Needs Tdap vaccine and flu but declines it today. [facility] Medical History Hemorrhoids with complication Carpal tunnel syndrome Cervical paraspinal muscle spasm Constipation Pre-diabetes Medication monitoring encounter Osteoarthritis of right knee Cervical radiculopathy Degeneration, intervertebral disc, cervical Cervical spondylosis Cervicalgia Irregular bleeding Migraines Class 1 obesity due to excess calories without serious comorbidity with body mass index (BMI) of 30.0 to 30.9 in adult Pure hypercholesterolemia Fibromyalgia GERD (gastroesophageal reflux disease) Surgical History History of carpal tunnel release Hx of hemorrhoidectomy (~07/24/24) H/O colonoscopy H/O laminectomy Hx of tubal ligation History of laparoscopic cholecystectomy Family History Father No problems noted. 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 Kishor Chavira, Janet Graff, Tae Paz and colleagues, with an educational kelley from [employer]. Review of Systems Const Details: - Gastrointestinal: Reports occasional stomach acid and abdominal discomfort - Mental Health: Denies depression; Reports occasional insomnia Physical exam (Primary Care) Vital Signs: Last Vital Signs BP 140/90 H 08/17/24 09:59 BMI result Body Mass Index 33.8 BMI Assessment/Plan discussion: High BMI High, discussed plan: lifestyle, weight reduction, dietary and physical activity Tobacco/Smoking Status: Tobacco use Status Tobacco use date assessed 02/12/24 08/17/24 09:27 Patient Tobacco Use Status Never used Tobacco 08/17/24 09:27 e-Cigarette/Vaping Use Never Used 08/17/24 09:27 Thrive Assessment: Date of Thrive Assessment Date Thrive assessed 08/17/24 08/17/24 09:27 Const Other: General: Cooperative, healthy appearing, comfortable, no acute distress and well developed Orientation: Patient oriented x3 Limitations: No limitations Head: Normal to inspection Ears: Hearing grossly normal bilaterally Nose: Normal external nose present Face and sinus: Normal facial exam Eyes: Appearance normal, both eyes and all related structures Neck: Normal visual inspection and Yes full ROM Respiratory: Normal respiratory effort and able to speak in complete sentences. Clear to auscultation bilaterally Cardiovascular: Regular rate and rhythm. Normal S1 and S2 GI: Normal to inspection. Soft to palpation and nontender Skin: No rashes or lesions noted Neuro: Patient oriented x3 Extremities: Normal to inspection Office Procedures Flu Questionnaire Does the patient have a severe egg allergy?: No Does the patient have severe life threatening allergies?: No Does the patient have a fever or illness today?: No Has the patient ever had Guillain-[place] Syndrome?: No Has the patient ever had any past reaction to a flu shot?: No Immunizations Fluarix Triv [id number] (PF) 45 mcg (15 mcg x 3)/0.5 mL IM syringe Performing Provider: Eugenia Whyte MD [facility] Administered by: VANESSA Simmons on 08/17/24 10:00 Dose Route Admin Location Dispensed Lot Number Expiration Date [facility] Social Work Program Coordinator 0.5 mL IM Right Deltoid 0.5 mL [id number] 02/15/25 [id number] [employer] VIS Given Date VIS Provided VIS Publication Date 08/17/24 Single Vaccine 21 Eligibility Eligibility Date Funding Source Not [facility] Eligible 08/17/24 Private Coding Level of Care Code Est Pt Level 3 (10515) Est Pt Prev Care 40-64y(59160) Diagnoses Physical exam Z00.00 Essential hypertension I10 Mild recurrent major depression F33.0 Time Spent (min) 32 Assessment & Plan Assessment & Plan (1) Physical exam: Code(s): Z00.00 - Encounter for general adult medical examination without abnormal findings Category: Medical (2) Essential hypertension: Code(s): I10 - Essential (primary) hypertension Category: Medical (3) Mild recurrent major depression: Code(s): F33.0 - Major depressive disorder, recurrent, mild Category: Medical Plan - For hypertension, after adjusting medication to Losartan 50 mg, I will monitor her blood pressure and arrange a follow-up appointment within three weeks. - Gastritis is already managed with Omeprazole 40 mg twice daily. - Insomnia treatment with Mirtazapine is maintained for alleviating sleep disturbances. - Oxybutynin is to continue for urinary urgency. - Ropinirole remains the management plan for restless leg syndrome. - I advised continuing with routine postoperative care and follow-up for hemorrhoid surgery recovery. Patient was informed and verbally consented to the use of an ambient scribe for clinic note documentation during this visit. During the visit, I discussed with the patient the rationale for increasing Losartan to manage hypertension, addressing her elevated blood pressure readings. The expected benefits of maintaining good control of her blood pressure to prevent cardiovascular incidents were underscored, and risks associated with untreated hypertension were mentioned. The follow-up involves monitoring readings at home and a follow-up appointment to assess control under the adjusted plan. I reviewed the recent hemorrhoid surgery outcomes, agreeing that the recovery aligns with expected postoperative symptoms. Orders: Orders Influenza [id number] Immunization Today Z23 - Encounter for immunization Medications: New losartan 50 mg PO DAILY 90 days 90 tabs 1RF losartan 50 mg PO DAILY 90 tabs 1RF 90 days Discontinued losartan Discontinued Reason: Patient Completed Course 25 mg PO DAILY 90 days 90 tabs 1RF I10 - Essential (primary) hypertension Patient Instructions: - Continue taking Losartan 50 mg daily for hypertension. - Monitor blood pressure at home and record readings for next visit. - Maintain Omeprazole 40 mg twice daily for gastritis. - Take Mirtazapine, Ropinirole, and Oxybutynin as prescribed. - Follow postoperative instructions for hemorrhoid surgery, and report any significant changes or concerns. - Keep upcoming preventive screenings and follow-ups as scheduled.
[2024-08-17 09:23] VITALS: BP 142/90; BMI 33.8
[2024-08-17 09:59] VITALS: BP 140/90
== END 2024-08-17 10:09 | disposition home or self-care (01) ==
PROVIDERS: PCP Internal Medicine; Visit Provider Internal Medicine
DX: Z00.00 Encounter for general adult medical examination without abnormal findings (principal); I10 Essential (primary) hypertension; F33.0 Major depressive disorder, recurrent, mild; Z23 Encounter for immunization

== ENCOUNTER 2024-12-26 00:30 | Emergency (ER) | payer OTHER, SELFPAY ==
[2024-12-26 00:32] VITALS: BP 156/84; PULSE 73; RESP 16; TEMP 36.3; O2SAT 98; BMI 34.0
--- NOTE | 2024-12-26 00:43 | ED.ABDPAIN ---
HPI - Abdominal Pain General Chief Complaint: Abdominal Pain Stated Complaint: lower abd pain Time Seen by Provider: 12/26/24 00:42 Source: patient Mode of arrival: ambulatory Limitations: no limitations History of Present Illness ED Provider: HPI narrative: Patient has been having dysuria frequency for last 4 days with suprapubic discomfort no vaginal discharge no fever no chills no nausea no vomiting no history of kidney stone no flank pain Related Data Previous Rx's ?Medication ?Instructions ?Recorded cromolyn 4 % eye drops 1 drp ophthalmic (eye) 6XD 7 days 01/10/23 #10 mL psyllium husk 0.4 gram capsule 0.8 g (2 x 0.4 gram) PO BEDTIME 12/16/23 (Reguloid (psyllium husk)) #60 caps loratadine 10 mg tablet (Allergy 10 mg PO DAILY 90 days #90 tabs 02/13/24 Relief (loratadine)) propranolol 20 mg tablet 20 mg PO DAILY 90 days #90 tabs 02/13/24 atorvastatin 10 mg tablet 10 mg PO BEDTIME 90 days #90 tabs 06/01/24 losartan 50 mg tablet 50 mg PO DAILY 90 days #90 tabs 08/17/24 gabapentin 400 mg capsule 400 mg PO TID #90 caps 08/27/24 oxybutynin chloride 5 mg tablet 5 mg PO BEDTIME PRN bladder spasms 09/08/24 30 days #30 tabs omeprazole 40 mg capsule,delayed 40 mg PO BID #60 caps 11/16/24 release mirtazapine 15 mg tablet (Remeron) 15 mg PO BEDTIME 90 days #90 tabs 12/03/24 ropinirole 0.5 mg tablet 0.5 mg PO BEDTIME 90 days #90 tabs 12/03/24 cefuroxime axetil 500 mg tablet 500 mg PO BID 7 days #14 tabs 12/26/24 phenazopyridine 200 mg tablet 200 mg PO TID 2 days #6 tabs 12/26/24 (Pyridium) Allergies Allergy/AdvReac Type Severity Reaction Status Date / Time trazodone [TRAZODONE] Allergy Intermediate TACHYCARDIA Verified 12/26/24 00:34 Review of Systems Review of Systems Yes all other systems are reviewed and are negative PMFSH Past Medical History Medical History Hemorrhoids with complication Carpal tunnel syndrome Cervical paraspinal muscle spasm Constipation Pre-diabetes Medication monitoring encounter Osteoarthritis of right knee Cervical radiculopathy Degeneration, intervertebral disc, cervical Cervical spondylosis Cervicalgia Irregular bleeding Migraines Class 1 obesity due to excess calories without serious comorbidity with body mass index (BMI) of 30.0 to 30.9 in adult Pure hypercholesterolemia Fibromyalgia GERD (gastroesophageal reflux disease) Surgical History History of carpal tunnel release Hx of hemorrhoidectomy (~07/24/24) H/O colonoscopy H/O laminectomy Hx of tubal ligation History of laparoscopic cholecystectomy Family History Family History Father No problems noted. Mother HX: breast cancer Hypertension Hypercholesterolemia Maternal Grandmother Hypertension Diabetes Family/Other HX: breast cancer Social History Social History Housing: Apartment Are you a primary outdoor emergency care technician to a significant other at home: No Do you presently have visiting nurse or other home services: No Alcohol intake: never Patient Tobacco Use Status: Never used Tobacco e-Cigarette/Vaping Use: Never Used Second Hand Smoke Exposure: No Advance Directives: No Advance Directives Information Provided: Yes Do you have a plan to hurt others: No Plan service: No Current occupational status: employed 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 Oriented X3. No acute distress. Eyes: No pallor or icterus ENT: Pharynx normal. Oral Mucosa moist Neck: Normal inspection. Neck supple. CVS: Normal heart rate and rhythm. Pulses normal. Respiratory: No respiratory distress. Equal air entry bilateral, no wheezing/rales/rhonchi Abdomen: Soft and mild discomfort suprapubic area no rebound tenderness or guarding. Bowel sounds are present, no mass palpable, no CVA tenderness Skin: Skin warm and dry. Normal skin color. Normal skin turgor. Extremities: No lower extremity edema. No calf tenderness Neuro: Oriented X 3. No motor deficit. No sensory deficit.No cerebellar signs , cranial nerves II-XII intact Medical Decision Making Medical Decision Making [facility] Narrative: Patient's UTI uncomplicated with suprapubic pain will prescribe cefuroxime and Pyridium unlikely diverticulitis Lab Data [facility] Lab Attestation statement: I reviewed the patient's lab results. 12/26/24 00:48 12/26/24 00:48 Labs: Lab Results 12/26/24 Range/Units 00:48 WBC 9.8 (4.8-10.8) X10*3/uL RBC 4.06 L (4.20-5.50) X10*6/uL Hgb 12.4 (12.0-16.0) g/dl Hct 37.8 (37.0-47.0) % MCV 93.1 (80.0-98.0) fL MCH 30.5 (27.0-33.0) pg MCHC 32.8 (31.0-35.0) g/dl RDW 12.4 (11.0-16.0) % Plt Count 313 (160-400) X10*3/uL MPV 9.5 (9.4-12.3) fL Immature Gran % (Auto) 0.1 (0.0-0.4) % Neut % (Auto) 48.5 (45-73) % Lymph % (Auto) 40.4 H (20-40) % [place] % (Auto) 7.7 (2-11) % Eos % (Auto) 2.4 (0-4) % Baso % (Auto) 0.9 (0-2) % Lymph # (Auto) 4.0 (1.2-4.9) X10*3/uL [place] # (Auto) 0.8 (0.1-1.2) X10*3/uL Eos # (Auto) 0.2 (0.0-0.4) X10*3/uL Baso # (Auto) 0.1 (0.0-0.2) X10*3/uL Abs Immat Gran (auto) 0.01 (0.00-0.03) X10*3/uL Absolute Neuts (auto) 4.8 (2.0-8.3) x10*3/uL Absolute Nucleated RBC 0.000 (0.0-0.012) X10*3/uL Nucleated RBC % (auto) 0.0 (0.0-0.2) /100WBC Sodium 143 (135-145) mmol/L Potassium 4.9 D (3.3-5.1) mmol/L Chloride 107 (96-108) mmol/L Carbon Dioxide 25 (22-29) mmol/L Anion Gap 16 (12-20) BUN 9 (9-16) mg/dL Creatinine 0.73 (0.5-1.4) mg/dL Estim Creat Clear Calc 85.3 Estimated GFR > 60 Random Glucose 130 H (60-115) mg/dL Calcium 9.7 (8.4-10.2) mg/dL Total Bilirubin 0.4 (0.0-1.0) mg/dL AST 29 (5-31) U/L ALT 32 H (0-31) U/L Alkaline Phosphatase 95 (39-117) U/L Total Protein 7.6 (6.5-8.0) g/dL Albumin 4.1 (3.5-5.0) g/dL Urine Color Yellow Urine Appearance Cloudy Urine pH 5.5 (5.0-9.0) Ur Specific [place] 1.025 (1.005-1.025) Urine Protein 300 (3+) H (Neg-Trace) mg/dL Urine Glucose (UA) Negative (Negative) mg/dL Urine Ketones Trace (Negative) mg/dL Urine Blood Large (3+) H (Negative) Urine Nitrite Negative (Negative) Ur Leukocyte Esterase Moderate (2+) H (Negative) Urine RBC >20 H (0-2) /HPF Urine WBC >50 H (0-5) /HPF Ur Squamous Epith Cells 0-2 (0-2) /HPF Urine Bacteria 2+ (None Seen) Hyaline Casts 0-2 (0-2) /LPF Discharge Plan Discharge Clinical Impression: UTI (urinary tract infection) Patient Disposition: Home, Self-Care Instructions: Urinary Tract Infection in Women (ED) Additional Instructions: Drink plenty of fluids Take antibiotics as prescribed Follow with your PCP Report to the ER if not better Prescriptions: New phenazopyridine [Pyridium] 200 mg tablet 200 mg PO TID 2 Days Qty: 6 0RF cefuroxime axetil 500 mg tablet 500 mg PO BID 7 Days Qty: 14 0RF No Action cromolyn 4 % drops 1 drp ophthalmic (eye) 6XD 7 Days Qty: 10 1RF psyllium husk [Reguloid (psyllium husk)] 0.4 gram capsule 0.8 g PO BEDTIME Qty: 60 3RF loratadine [Allergy Relief (loratadine)] 10 mg tablet 10 mg PO DAILY 90 Days Qty: 90 3RF propranolol 20 mg tablet 20 mg PO DAILY 90 Days Qty: 90 1RF atorvastatin 10 mg tablet 10 mg PO BEDTIME 90 Days Qty: 90 3RF gabapentin 400 mg capsule 400 mg PO TID Qty: 90 5RF oxybutynin chloride 5 mg tablet 5 mg PO BEDTIME PRN (Reason: bladder spasms) 30 Days Qty: 30 0RF omeprazole 40 mg capsule,delayed release(DR/EC) 40 mg PO BID Qty: 60 3RF mirtazapine [Remeron] 15 mg tablet 15 mg PO BEDTIME 90 Days Qty: 90 1RF ropinirole 0.5 mg tablet 0.5 mg PO BEDTIME 90 Days Qty: 90 1RF Rx Instructions: administer 1-3 hours before bedtime losartan 50 mg tablet 50 mg PO DAILY 90 Days Qty: 90 1RF Print Language: Anguillan
[2024-12-26 00:53] LABS: MANUAL DIFF FLAG NO
[2024-12-26 00:55] LABS: Basophils Absolute Auto 0.1 X10*3/uL (0.0-0.2); Basophils Percent Auto 0.9 % (0-2); Eosinophils Absolute Auto 0.2 X10*3/uL (0.0-0.4); Eosinophils Percent Auto 2.4 % (0-4); Hematocrit 37.8 % (37.0-47.0); Hemoglobin 12.4 g/dl (12.0-16.0); Imm Gran Abs Auto 0.01 X10*3/uL (0.00-0.03); Imm Gran Pct Auto 0.1 % (0.0-0.4); Lymphocytes Percent Auto 40.4 % (20-40); Mean Corpuscular HGB Conc 32.8 g/dl (31.0-35.0); Mean Corpuscular Hemoglobin 30.5 pg (27.0-33.0); Mean Corpuscular Volume 93.1 fL (80.0-98.0); Mean Platelet Volume 9.5 fL (9.4-12.3); Monocytes Absolute Auto 0.8 X10*3/uL (0.1-1.2); Monocytes Percent Auto 7.7 % (2-11); Neutrophils Absolute Auto 4.8 x10*3/uL (2.0-8.3); Neutrophils Percent Auto 48.5 % (45-73); Platelet Count 313 X10*3/uL (160-400); Red Blood Count 4.06 X10*6/uL (4.20-5.50); Red Cell Distribution Width 12.4 % (11.0-16.0); White Blood Count 9.8 X10*3/uL (4.8-10.8)
[2024-12-26 00:56] LABS: Appearance Urine Cloudy; Color Urine Yellow; Glucose Urine UA Negative (Negative); Leukocyte Esterase Urine Moderate (2+) (Negative); Nitrite Urine Negative (Negative); PH 5.5 (5.0-9.0); Specific Gravity - Urine 1.025 (1.005-1.025); UMIC TRIGGER UACC YES; Urine Blood Large (3+) (Negative); Urine Ketones Trace mg/dL (Negative); Urine Protein 300 (3+) mg/dL (Neg-Trace)
[2024-12-26 01:01] LABS: Bacteria Urine 2+ (None Seen); Hyaline Casts Urine 0-2 /LPF (0-2); RBC Urine >20 /HPF (0-2); Squamous Epithelial Cell Urine 0-2 /HPF (0-2); UACC Culture Trigger YES; WBC Urine >50 /HPF (0-5)
[2024-12-26 01:22] LABS: Alanine Aminotransferase 32 U/L (0-31); Albumin Level 4.1 g/dL (3.5-5.0); Alkaline Phosphatase 95 U/L (39-117); Anion Gap 16 (12-20); Aspartate Amino Transferase 29 U/L (5-31); Bilirubin Total 0.4 mg/dL (0.0-1.0); Blood Urea Nitrogen 9 mg/dL (9-16); Calcium 9.7 mg/dL (8.4-10.2); Carbon Dioxide 25 mmol/L (22-29); Chloride 107 mmol/L (96-108); Creatinine Clr Calc Pharmacy 85.3; Estimated Glomerular Filt Rate > 60; Glucose Random 130 mg/dL (60-115); Potassium 4.9 mmol/L (3.3-5.1); Sodium 143 mmol/L (135-145); Total Protein 7.6 g/dL (6.5-8.0)
[2024-12-26 01:39] VITALS: BP 138/88; PULSE 73; RESP 16; TEMP 36.5; O2SAT 96
[2024-12-26] MEDS: cefuroxime axetiL 500 MG TABLET PO (01:49)
[2024-12-26] MEDS: Phenazopyridine HCL 200 MG TABLET PO (01:49)
[2024-12-26 01:57] VITALS: BP 138/88; PULSE 73; RESP 16; TEMP 36.5; O2SAT 96
== END 2024-12-26 01:58 | disposition home or self-care (01) ==
PROVIDERS: Emergency Provider Internal Medicine; PCP Internal Medicine
DX: N39.0 Urinary tract infection, site not specified (principal); R10.2 Pelvic and perineal pain; R35.0 Frequency of micturition; R30.0 Dysuria; Z79.899 Other long term (current) drug therapy
CPT/HCPCS: 36415; 80053; 81001; 81003; 85025; 87086; 87088; 87186; 99283; 99284

== ENCOUNTER 2025-01-07 09:36 | Outpatient (REF) | payer OTHER, SELFPAY ==
--- NOTE | ~2025-01-07 | XR_ITS ---
EXAMINATION: XR ANKLE 3 OR MORE VIEWS RIGHT HISTORY: M25.571 - Pain in right ankle and joints of right foot COMPARISON: There are no prior studies available for comparison. FINDINGS: Three views of the right ankle are submitted. Osseous mineralization is normal. There is no fracture or dislocation. The joint spaces are preserved. The soft tissues are unremarkable. XR/XR ankle RT min 3V IMPRESSION: Unremarkable examination of the right ankle. Electronically signed by: Kishor Champagne MD 01/07/2025 10:09 AM EDT
--- OUTSIDE RECORDS SUMMARY | 2025-01-07 09:53 | XMS_ITS | Clinical Summary ---
Author Organization [employer] Address [address] [facility] [address] [place] [address] Care Team Providers Care Marine Architect Name Role Phone Unavailable Primary Care Provider Unavailabl e Immunizations Immunization Administration Dates Next Due Hep B, adult 11/18/2009,07/05/2009,05/31/2009 Influenza injectable quadriv alent IIV4 with preservative 06/15/2016 Influenza injectable quadriv alent preservative free 08/13/2023,08/09/2022,07/02/2018 Influenza, IIV3, injectable 07/26/2015, 4 Influenza, Split (incl. homa fied surface antigen) 07/14/2013,04/15/2012 MMR 06/19/2012 Pfizer Covid-19 Vaccine 12+ 10/18/2023 TD (adult), 2 Lf tetanus tox oid, preservative free, adsorbed 04/26/2009 Tdap 12/31/2018,06/19/2012 Zoster, Recombinant 11/22/2023,09/20/2023 Social History Tobacco Use Types Packs/Day Years Used Date Smoking Tobacco: Never Assessed Comments Unknown Sex and Gender Information Value Date Recorded Sex Assigned at Female 06/18/2022 10:16 AM EDT Legal Sex Female 10:16 AM EDT Gender Identity Choose not to disclose 10:16 AM EDT Sexual Orientation Choose not to disclose 2021 10:16 AM EDT Plan of Treatment Health Maintenance Due Date Last Done Comments CT Colonography 1970 Colonoscopy 1970 Colorectal Cancer Screening 1970 Depression Screening 1970 FIT DNA/Cologuard 1970 FIT 1970 FOBT 1970 HIV Screening 1970 SDOH Screening 1970 Sigmoidoscopy 1970 Disability Screening 1970 Alcohol/Substance Use Screening 1982 Tobacco Screening 1982 Hepatitis C Screening 1988 Pap Smear 11/08/1991 Cervical Cancer Screening 2000 HPV/Cotest 2000 Mammogram 2010 Pneumococcal Vaccine: 50+ Years (1 of 1 - PCV) 2020 COVID-19 Vaccine ( - season) 2024 10/18/2023, 07/14/2022, 08/28/2021, Additional history exists Influenza Vaccine (#1) 2024 , 08/09/2022, 07/02/2018, Additional history exists DTaP/Tdap/Td Vaccines (3 - Td or Tdap) 12/31/2028 12/31/2018, 06/19/2012, 04/26/2009 RSV Patients and Patients Aged 60 years or older (1 - 1-dose 75+ series) 2045 Hepatitis B Vaccines Completed 11/18/2009, 07/05/2009, 05/31/2009 Zoster Vaccines Completed 11/22/2023, 09/20/2023 HIB Vaccines Aged Out No longer eligi ble based on patient's age to complete this topic HPV Vaccines Aged Out No longer eligi ble based on patient's age to complete this topic Hepatitis A Vaccines Aged Out No long er eligible based on patient's age to complete this topic IPV Vaccines Aged Out No longer eligi ble based on patient's age to complete this topic Meningococcal B Vaccine Aged Out No l onger eligible based on patient's age to complete this topic Meningococcal Vaccine Aged Out No tushar bobby eligible based on patient's age to complete this topic RSV under 20 months Aged Out No longe r eligible based on patient's age to complete this topic Rotavirus Vaccines Aged Out No longer eligible based on patient's age to complete this topic Insurance [facility] [place] [address]
== END 2025-01-07 09:37 | disposition home or self-care (01) ==
LOC: HO.XRAY 09:36
PROVIDERS: PCP Internal Medicine; Visit Provider Student in an Organized Health Care Education/Training Program
DX: M25.571 Pain in right ankle and joints of right foot (principal); K21.9 Gastro-esophageal reflux disease without esophagitis; R13.13 Dysphagia, pharyngeal phase; K59.00 Constipation, unspecified
CPT/HCPCS: 73610

== ENCOUNTER → 2025-01-07 09:42 | Outpatient (BNV) | payer OTHER, SELFPAY | PROVIDERS: PCP Internal Medicine; Visit Provider Radiology Diagnostic Radiology | DX: M25.571 Pain in right ankle and joints of right foot (principal) | CPT/HCPCS: 73610 ==

== ENCOUNTER 2025-01-07 10:00 | Outpatient (AMB) | payer OTHER, SELFPAY ==
--- NOTE | 2025-01-07 10:06 | A.OFFVIS_ITS ---
Vital Signs 01/07/25 10:27 Height 5 ft 1 in Weight 180 lb BMI 34.0 BP 134/76 Blood Pressure Location Rt brachial Position Sitting Pulse 98 Pulse Source Pulse Oximeter Pulse Oximetry (%) 96 Oxygen Delivery Method Room Air Intake Visit Reasons: post op EGD r/s 10/21/24 Intake Note: ESTABLISHED PATIENT for s/p EGD + GERD mgmt. CC; C.O. dysphagia despite having procedure, as well as epigastric pain persistence. Pt states that if she eats anything after 6 PM that she experiences exacerbation of sx. No additional concerns at this time. Tool And Gauge Inspector Required: Yes Tool And Gauge Inspector Services: Tool And Gauge Inspector Present Tool And Gauge Inspector Name: [facility] Lynnette Eddy ([id number]) Information Interpreted: clinical only Accompanied by: Self / Same As Patient Allergies trazodone [TRAZODONE] Allergy (Intermediate, Verified 01/07/25 10:07) TACHYCARDIA HPI HPI post op EGD r/s 10/21/24: Details: Assessment & Plan (1) Dysphagia: Code(s): R13.10 - Dysphagia, unspecified Category: Medical Qualifiers: Dysphagia type: pharyngeal phase Qualified Code(s): R13.13 - Dysphagia, pharyngeal phase (2) GERD (gastroesophageal reflux disease): Code(s): K21.9 - Gastro-esophageal reflux disease without esophagitis Category: Medical Qualifiers: Esophagitis presence: without esophagitis Qualified Code(s): K21.9 - Gastro-esophageal reflux disease without esophagitis (3) Constipation: Code(s): K59.00 - Constipation, unspecified Category: Medical Plan Danish #Eddie Live with sheldon We review the barium swallow and show some dysmotility along with mild cricopharyngeal achalasia. Now the endoscopy will be necessary to see if possible dilation or other diagnostic criteria can help with her swallowing issues. She continues on her omeprazole, she did receive the senna but found that it really did not do anything to help her move her bowels better. Since it did not do anything we will progress to Dulcolax 1-2 tablets as needed. She is aware of her upcoming endoscopy in July. Return office visit in 6 weeks to evaluate the bisacodyl Orders: Referrals General Surgery Referral K64.9 - Unspecified hemorrhoids Medications: New bisacodyl (Dulcolax (bisacodyl)) 10 mg (2 x 5 mg) PO BEDTIME 30 days 60 tabs 6RF K21.9 - Gastro-esophageal reflux disease without esophagitis, K59.00 - Constipation, unspecified, R13.13 - Dysphagia, pharyngeal phase Discontinued sennosides (Senna Laxative) Discontinued Reason: Doctor's Order 17.2 mg (2 x 8.6 mg) PO BEDTIME 60 tabs 6RF K59.00 - Constipation, unspecified, R13.13 - Dysphagia, pharyngeal phase EGD 08/11/24 Findings: Larynx:normal Esophagus: GE junction at 37 cm, diaphragm hiatus at 37 cm, ridging of mucosa noted, bx taken from distal and proximal esophagus and GEJ, dilation of UES and LEs to 20 mm, no tears seen Stomach: patchy erythema with atrophy . Biopsies were obtained. Grade 2 flap valve on retroflexed examination of the cardia. Duodenum: Normal bulb and descending duodenum, Intervention: Biopsies as noted above, balloon dilation Impression/Findings: atrophic gastritis PLAN: if h pylori pos then treat make sure taking PPI, if not working can change GERD precautions Biopsy Received: 08/11/24 Diagnosis A. Stomach, biopsy: Gastric antral and body mucosa with minimal chronic inactive gastritis; negative for H. pylori, intestinal metaplasia and dysplasia. B. Gastroesophageal junction, biopsy: Squamous mucosa with no specific change; no columnar mucosa present. C. Esophagus, distal, biopsy: Squamous mucosa with no specific change; no columnar mucosa present. D. Esophagus, proximal, biopsy: Squamous mucosa with no specific change; no columnar mucosa present. TODAY'S VISIT Danish #Sheldon lIVE She had good relief for about 2-3 mos, but the dysphagia has returned. I explain that some require multiple dilations. She had discomfort 2-3 days after, will tty to rx some lidocaine gargle. The bisacodyl is not giving her good CIC relief, will progress to LInzess since she has failed colace, senna, miralax, fiber, and dulcolax. Start at 145mcg and titrate. ROV next avail. [facility] Medical History (Updated 01/07/25 @ 10:48 by QUINTEN Oro) Physical exam Hemorrhoids with complication Carpal tunnel syndrome Cervical paraspinal muscle spasm Constipation Pre-diabetes Medication monitoring encounter Osteoarthritis of right knee Cervical radiculopathy Degeneration, intervertebral disc, cervical Cervical spondylosis Cervicalgia Irregular bleeding Migraines Class 1 obesity due to excess calories without serious comorbidity with body mass index (BMI) of 30.0 to 30.9 in adult Pure hypercholesterolemia Fibromyalgia GERD (gastroesophageal reflux disease) Surgical History (Updated 01/07/25 @ 10:22 by ELIEL Cooper) Hx of endoscopy History of carpal tunnel release Hx of hemorrhoidectomy (~07/24/24) H/O colonoscopy H/O laminectomy Hx of tubal ligation History of laparoscopic cholecystectomy Family History Father No problems noted. 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 Current occupational exposures/hazards: No Gender identity: Female Cognitive needs: No Hearing needs: No Vision needs: No Review of Systems Const Denies fatigue, Denies fever(s), Denies night sweats, Denies poor appetite and Denies weight loss ENT Reports Normal hearing present, Denies dental pain, Reports dysphagia, Denies hearing loss, Denies mouth pain, Reports odynophagia, Denies throat swelling, Denies tongue swelling and Reports other (Dentition adequate) Card Reports no additional complaints Resp Reports no additional complaints GI Details: Denies abdominal pain, Denies melena, Denies bloating, Denies hematochezia, Reports constipation, Denies GI cramping, Reports dysphagia, Denies excessive flatus, Denies early satiety, Reports heartburn, Denies diarrhea, Denies nausea, Reports odynophagia, Denies vomiting and Denies hematemesis Skin/Breast Denies pruritus, Denies lesions, Denies rash and Denies jaundice Neuro Reports Normal hearing present and Denies Abnormal speech present Endo Denies fatigue Aller/Immun Denies throat swelling and Denies tongue swelling Physical Exam Vital Signs: Last Vital Signs Pulse 98 01/07/25 10:27 BP 134/76 01/07/25 10:27 Pulse Ox 96 01/07/25 10:27 Oxygen Delivery Method Room Air 01/07/25 10:27 BMI result Body Mass Index 34.0 Const General: cooperative, no acute distress, well developed and well groomed Nutritional Appearance: well nourished and obese Orientation/consciousness: oriented to person, oriented to place and oriented to time Limitations: language barrier HEENT Head: Yes normocephalic and Yes atraumatic Eyes General: appearance normal, both eyes and all related structures Pupils: Equal, round and reactive pupils present Neck Neck: Yes normal visual inspection and Yes no lymphadenopathy Thyroid: Thyroid normal Resp Effort & Inspection: normal respiratory effort and able to speak in complete sentences Auscultation: clear to auscultation bilaterally Cardio Rate: regular rate Rhythm: regular rhythm Heart sounds: Normal, physiologic split S2 sound present Peripheral pulses: radial pulses present and posterior tibial pulses present GI Inspection: No distended, Yes Abdominal panniculus present and Yes obesity Palpation (GI): Soft to palpation, nontender, no guarding, not rigid and No hepatosplenomegaly present Percussion: Yes normal to percussion Auscultation: normal bowel sounds Rectal Exam - Female: deferred Skin General skin exam: no rashes or lesions noted, turgor normal, skin not dry, no jaundice, No spider nevi and no striae Rashes: no rashes Nails: normal Neuro General: oriented to person, oriented to place and oriented to time Cranial nerves: Yes Equal, round and reactive pupils present and Yes Normal hearing present Speech: No Abnormal speech present Extrem General: Yes normal to inspection, No clubbing, No cyanosis and No edema Psych Appearance: grossly normal and well kempt Mental Status: mental status grossly normal Speech and movement: Normal speech and movement present Affect: normal affect Attitude: cooperative Thought process: Normal thought process present and not confabulating Thought content: Normal thought content present Insight: Fair insight present (Psych) Judgement: Fair judgement present (Psych) Assessment & Plan Assessment & Plan (1) GERD (gastroesophageal reflux disease): Code(s): K21.9 - Gastro-esophageal reflux disease without esophagitis Category: Medical Qualifiers: Esophagitis presence: without esophagitis Qualified Code(s): K21.9 - Gastro-esophageal reflux disease without esophagitis (2) Pre-op examination: Code(s): Z01.818 - Encounter for other preprocedural examination Category: Medical (3) Dysphagia: Code(s): R13.10 - Dysphagia, unspecified Category: Medical Qualifiers: Dysphagia type: pharyngeal phase Qualified Code(s): R13.13 - Dysphagia, pharyngeal phase (4) Odynophagia: Code(s): R13.10 - Dysphagia, unspecified Category: Medical (5) Constipation: Code(s): K59.00 - Constipation, unspecified Category: Medical Plan Danish #Sheldon lIVE She had good relief for about 2-3 mos, but the dysphagia has returned. I explain that some require multiple dilations. She had discomfort 2-3 days after, will tty to rx some lidocaine gargle. The bisacodyl is not giving her good CIC relief, will progress to LInzess since she has failed colace, senna, miralax, fiber, and dulcolax. Start at 145mcg and titrate. ROV next avail. Orders: Orders EGD - GI Use Only Today K21.9 - Gastro-esophageal reflux disease without esophagitis, R13.13 - Dysphagia, pharyngeal phase, Z01.818 - Encounter for other preprocedural examination Medications: New linaclotide (Linzess) Take first thing in the morning with a full glass of water. 145 mcg PO QAM 30 caps 3RF K58.1 - Irritable bowel syndrome with constipation lidocaine HCl 4% gargle bid s/p esophageal dilation to promote less pain 2 mL topical BID 32 mL 0RF R13.10 - Dysphagia, unspecified Refilled omeprazole 40 mg PO BID 60 caps 3RF psyllium husk (Reguloid (psyllium husk)) 0.8 grams (2 x 0.4 gram) PO BEDTIME 60 caps 3RF K59.00 - Constipation, unspecified Coding Level of Care Code Est Pt Level 3 (09160) Diagnoses Gastroesophageal reflux disease without esophagitis K21.9 Esophagitis presence: without esophagitis Pre-op examination Z01.818 Pharyngeal dysphagia R13.13 Dysphagia type: pharyngeal phase Odynophagia R13.10 Constipation K59.00
--- OUTSIDE RECORDS SUMMARY | 2025-01-07 10:22 | XMS_ITS | Clinical Summary ---
Author Organization [employer] Address [address] [facility] [address] [place] [address] Care Team Providers Care Full Stack Java Developer Name Role Phone Unavailable Primary Care Provider [...] patient's age to complete this topic Insurance [facility]
[2025-01-07 10:27] VITALS: BP 134/76; PULSE 98; O2SAT 96; BMI 34.0
== END 2025-01-07 10:54 | disposition home or self-care (01) ==
LOC: HO.HGI 10:01
PROVIDERS: PCP Internal Medicine; Visit Provider Nurse Practitioner
DX: K21.9 Gastro-esophageal reflux disease without esophagitis (principal); R13.13 Dysphagia, pharyngeal phase; R13.10 Dysphagia, unspecified; K59.00 Constipation, unspecified
CPT/HCPCS: 99213

== ENCOUNTER 2025-02-01 13:50 | Outpatient (AMB) | payer OTHER, SELFPAY ==
--- NOTE | 2025-02-01 14:13 | A.OFFVIS_ITS ---
Vital Signs 02/01/25 14:23 Height 5 ft 1 in Weight 182 lb 1.629 oz BMI 34.4 BP 132/74 Blood Pressure Location Lt brachial Position Sitting Respiration 16 Pulse 105 H Pulse Source Pulse Oximeter Pulse Oximetry (%) 98 Oxygen Delivery Method Room Air Intake Visit Reasons: FMS Intake Note: Patient presents for FMS follow up. Patient stated her RT knee started hurting after last injection on 05/25/24. Clerical Assigner Required: Yes Clerical Assigner Language: Grab Driver Services: Clerical Assigner Present Clerical Assigner Name: Nithin [id number] Information Interpreted: non-clinical & clinical Allergies trazodone [TRAZODONE] Allergy (Intermediate, Verified 02/01/25 14:22) TACHYCARDIA HPI Comments Details: Patient is a 54-year-old female with migraines, hyperlipidemia, hypertension, depression, polyarticular osteoarthritis and fibromyalgia here today for follow up Interval History: Patient last seen 05/25/[address] Leon. At that time she was following up for her fibromyalgia and polyarticular osteoarthritis. Continued to have diffuse pain especially right knee pain for which she was requesting an injection. Right knee was injected without issue. She was also complaining of some ankle paresthesias and so an EMG was ordered. Today, Complaining of superior knee pain, worse with climbing the stairs - Only a 1 month improvement after the injection Also complaining of right ankle pain Rheumatologic History: Polyarticular OA Fibromyalgia Current Rheumatology Medication(s): Gabapentin 400mg tid Tramadol 50mg tid prn PFSH Medical History (Updated 01/07/25 @ 10:48 by QUINTEN Oro) Physical exam Hemorrhoids with complication Carpal tunnel syndrome Cervical paraspinal muscle spasm Constipation Pre-diabetes Medication monitoring encounter Osteoarthritis of right knee Cervical radiculopathy Degeneration, intervertebral disc, cervical Cervical spondylosis Cervicalgia Irregular bleeding Migraines Class 1 obesity due to excess calories without serious comorbidity with body mass index (BMI) of 30.0 to 30.9 in adult Pure hypercholesterolemia Fibromyalgia GERD (gastroesophageal reflux disease) Surgical History Hx of endoscopy History of carpal tunnel release Hx of hemorrhoidectomy (~07/24/24) H/O colonoscopy H/O laminectomy Hx of tubal ligation History of laparoscopic cholecystectomy Family History Father No problems noted. 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 Current occupational exposures/hazards: No Gender identity: Female Cognitive needs: No Hearing needs: No Vision needs: No Review of Systems Const Details: Review of Systems Constitutional: Denies fever, chills, weight loss ENT: Denies vision changes, eye pain or eye redness, dental caries, dry mouth GI: Denies nausea, vomiting, diarrhea, abdominal pain, change in BM Pulm: Denies SOB, DIAS, hemoptysis, wheezing Cards: Denies chest pain, palpitations Skin: Denies Raynaud's, rash, nail changes, photosensitivity, [employer]WALL [employer]EM[employer]: Denies headaches, weakness, paresthesias, recurrent falls MSK: as per HPI All other systems reviewed and are unremarkable except noted above Physical Exam Vital Signs: Last Vital Signs Pulse 105 H 02/01/25 14:23 Resp 16 02/01/25 14:23 BP 132/74 02/01/25 14:23 Pulse Ox 98 02/01/25 14:23 Oxygen Delivery Method Room Air 02/01/25 14:23 BMI result Body Mass Index 34.4 Vital signs reviewed Physical Examination CONSTITUITIONAL Patient alert and cooperative. Well appearing and in no apparent painful distress HEENT Conjunctiva and sclera clear. No lymphadenopathy. CHEST/RESPIRATORY SYSTEM Normal respiratory effort and able to speak in complete sentences. Clear to auscultation bilaterally. No crackles, rales, rhonchi, wheezes heard. CARDIAC SYSTEM Regular rate and rhythm. S1 and S2 heard no murmurs. Radial pulses intact bilaterally MSK Hands * Right Hand: Able to make a fist. No swelling or tenderness to palpation of these joints. Early herbeden's nodes * Left Hand: Able to make a fist. No swelling or tenderness to palpation of these joints. Early herbeden's nodes Wrists * Right Wrist: Full ROM. 70 degrees of wrist flexion, 80 degrees of wrist extension. No swelling or TTP * Left Wrist: Full ROM. 70 degrees of wrist flexion, 80 degrees of wrist extension. No swelling or TTP Elbows * Right Elbow: Full ROM. No swelling or TTP. No TTP of the medial and lateral epicondyles * Left Elbow: Full ROM. No swelling or TTP. No TTP of the medial and lateral epicondyles Shoulders * Right shoulder: Full ROM. No swelling noted. No TTP of the AC joint, subacromial bursa or posterior shoulder * Left shoulder: Full ROM. No swelling noted. No TTP of the AC joint, subacromial bursa or posterior shoulder Knees * Right knee: Full ROM. No swelling noted. TTP of the superior patella pole * Left knee: Full ROM. No swelling noted. No TTP of the knee joint lie or pes anserine bursa. Ankles * Right ankle: Good ankle dorsiflexion and plantar flexion. Mild swelling and TTP of the lateral right ankle * Left ankle: Good ankle dorsiflexion and plantar flexion. No swelling. No TTP of the ankle joint Feet * Right foot: Negative squeeze test * Left foot: Negative squeeze test Tender points? * No tenderness to palpation of the bilateral trapezius, supraspinatus, anterior costochondral junctions, bilateral suboccipital muscle insertions SKIN No rashes Results Reviewed Results Reviewed: Laboratory Tests 11/28/22 12/26/24 09:36 00:48 WBC 9.8 RBC 4.06 L Hgb 12.4 Hct 37.8 Plt Count 313 ESR 16 Sodium 143 Potassium 4.9 D Chloride 107 Carbon Dioxide 25 BUN 9 Creatinine 0.73 AST 29 ALT 32 H Alkaline Phosphatase 95 C-Reactive Protein 0.80 H Total Protein 7.6 Albumin 4.1 XR Ankle 12/2024 FINDINGS: Three views of the right ankle are submitted. Osseous mineralization is normal. There is no fracture or dislocation. The joint spaces are preserved. The soft tissues are unremarkable. IMPRESSION: Unremarkable examination of the right ankle EMG 06/2024 Bilateral tibial and peroneal motor studies were performed. Bilateral superficial peroneal, sural and median and lateral mixed plantar sensory studies were performed. Tibial H-reflexes were obtained and paraspinal muscles were tested with a needle. 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 Otherwise, no significant abnormality noted. Assessment & Plan Assessment & Plan (1) Osteoarthritis of right knee: Code(s): M17.11 - Unilateral primary osteoarthritis, right knee Category: Medical Qualifiers: Osteoarthritis type: primary Qualified Code(s): M17.11 - Unilateral primary osteoarthritis, right knee Plan: #Knee OA Patient is a 54 y.o. female with knee OA Check XRs Return in 2 weeks to eval for injection Plan I spent 20 minutes reviewing the record and labs, taking a history, examining the patient, discussing the treatment plan, ordering diagnostic work up and documenting in the medical record Coding Level of Care Code Est Pt Level 3 (46217) Diagnoses Primary osteoarthritis of right knee M17.11 Osteoarthritis type: primary
[2025-02-01 14:23] VITALS: BP 132/74; PULSE 105; RESP 16; O2SAT 98; BMI 34.4
--- OUTSIDE RECORDS SUMMARY | 2025-02-01 15:28 | XMS_ITS | Clinical Summary ---
Author Organization [employer] Address [address] [place] [address] Care Team Providers Care Director Of Oncology Name Role Phone Unavailable Primary Care Provider [...] 07/14/2022, 08/28/2021, Additional history exists Influenza Vaccine (Season Ended) 2025 08/13/2023, 08/09/2022, 07/02/2018, Additional history exists DTaP/Tdap/Td Vaccines [...] patient's age to complete this topic Insurance [facility] STANDARD [facility]SN [facility]
== END 2025-02-01 15:15 | disposition home or self-care (01) ==
LOC: HO.RHE 13:50
PROVIDERS: PCP Internal Medicine; Visit Provider Student in an Organized Health Care Education/Training Program
DX: M17.11 Unilateral primary osteoarthritis, right knee (principal)
CPT/HCPCS: 99213

== ENCOUNTER 2025-02-01 13:50 | Outpatient (REF) | payer OTHER, SELFPAY ==
--- NOTE | ~2025-02-01 | XR_ITS ---
EXAMINATION: XR KNEE, RIGHT CLINICAL INFORMATION: M25.561 - Pain in right knee COMPARISON: August 10, 2021 TECHNIQUE: AP lateral and sunrise views of the right knee. FINDINGS: No acute cortical disruption or gross malalignment. Mild joint space narrowing involving the medial compartment. No gross suprapatellar bursa joint effusion. No lytic or blastic lesions. XR/XR knee RT 3V IMPRESSION: Mild medial compartment osteoarthrosis. Electronically signed by: John Rock MD 02/01/2025 03:55 PM EDT
== END 2025-02-01 13:51 | disposition home or self-care (01) ==
LOC: HO.XRAY 13:50
PROVIDERS: PCP Internal Medicine; Visit Provider Student in an Organized Health Care Education/Training Program
DX: M17.11 Unilateral primary osteoarthritis, right knee (principal)
CPT/HCPCS: 73562; 99212

== ENCOUNTER → 2025-02-01 15:23 | Outpatient (BNV) | payer OTHER, SELFPAY | PROVIDERS: PCP Internal Medicine; Visit Provider Radiology Diagnostic Radiology | DX: M17.11 Unilateral primary osteoarthritis, right knee (principal) | CPT/HCPCS: 73562 ==

== ENCOUNTER 2025-02-15 09:38 | Outpatient (AMB) | payer OTHER, SELFPAY ==
[2025-02-15 10:03] VITALS: BP 136/80; BMI 34.4
--- NOTE | 2025-02-15 10:03 | MHC.PC.OV ---
Vital Signs 02/15/25 10:03 Height 5 ft 1 in Weight 182 lb BMI 34.4 BP 136/80 Blood Pressure Location Lt brachial Position Sitting Intake Visit Reasons: bp Intake Note: Patient here for a follow up BP Homoeopath Required: No Accompanied by: Self / Same As Patient Allergies trazodone (TRAZODONE) Allergy (Intermediate, Verified 02/15/25 10:21) TACHYCARDIA Medication List - Last Reconciled 02/15/25 by Eugenia Whyte MD atorvastatin 10 mg PO BEDTIME 90 days cromolyn 4% 1 drp ophthalmic (eye) 6XD 7 days gabapentin 400 mg PO TID lidocaine HCl 4% 2 mL topical BID linaclotide (Linzess) 145 mcg PO QAM loratadine (Allergy Relief (loratadine)) 10 mg PO DAILY 90 days losartan 50 mg PO DAILY 90 days mirtazapine (Remeron) 15 mg PO BEDTIME 90 days omeprazole 40 mg PO BID oxybutynin chloride 5 mg PO BEDTIME PRN 30 days propranolol 20 mg PO DAILY 90 days psyllium husk (Reguloid (psyllium husk)) 0.8 grams (2 x 0.4 gram) PO BEDTIME ropinirole 0.5 mg PO BEDTIME 90 days tramadol 50 mg PO TID PRN Tobacco use date assessed: 02/15/25 Dental Screening Dental Screen Date: 02/15/25 Did you have a dental visit in the last 12 months?: Yes Did you have a dental problem in the last 6 months where you did not have access to dental care?: No Was dental information given to patient?: Patient has dentist HPI HPI Comments History of Present Illness Details The patient is a 54-year-old female presenting with multiple chronic conditions management and follow-up. Hypertension has been well-controlled with losartan 50 mg, and recent blood pressure readings have been satisfactory. She had a urinary tract infection in December, which was managed appropriately, and she continues to follow up with urology for persistent hematuria. The patient experiences tachycardia, which is being monitored in relation to trazodone use. She is on atorvastatin for hyperlipidemia, and her cholesterol levels are being managed effectively. Constipation is managed with linaclotide, and she reports improvement in symptoms. Allergic rhinitis is treated with alanna, and insomnia is managed with mirtazapine 15 mg. Gastroesophageal reflux disease is controlled with omeprazole, and urinary incontinence is managed with oxybutynin. She experiences migraines, for which propranolol is prescribed, although she reports frequent headaches. Restless leg syndrome is treated with ropinirole, and chronic neck pain is managed with tramadol and metocarbamol, which provides relief. Osteoarthritis, particularly in the right knee, has been confirmed via imaging, and she is scheduled to see rheumatology for further management. [facility] Medical History (Updated 02/15/25 @ 10:28 by Eugenia Whyte MD) Physical exam Hemorrhoids with complication Carpal tunnel syndrome Cervical paraspinal muscle spasm Constipation Pre-diabetes Medication monitoring encounter Osteoarthritis of right knee Cervical radiculopathy Degeneration, intervertebral disc, cervical Cervical spondylosis Cervicalgia Irregular bleeding Migraines Class 1 obesity due to excess calories without serious comorbidity with body mass index (BMI) of 30.0 to 30.9 in adult Pure hypercholesterolemia Fibromyalgia GERD (gastroesophageal reflux disease) Surgical History Hx of endoscopy History of carpal tunnel release Hx of hemorrhoidectomy (~07/24/24) H/O colonoscopy H/O laminectomy Hx of tubal ligation History of laparoscopic cholecystectomy Family History Father No problems noted. 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 1. Little interest or pleasure in doing things: several days 2. Feeling down, depressed, or hopeless: several days 3. Trouble falling or staying asleep, or sleeping too much: several days 4. Feeling tired or having little energy: several days 5. Poor appetite or overeating: several days 6. Feeling bad about yourself - or that you are a failure or have let yourself or your family down: not at all 7. Trouble concentrating on things, such as reading the newspaper or watching television: not at all 8. Moving or speaking so slowly that other people could have noticed. Or the opposite - being so fidgety or restless that you have been moving around a lot more than usual: not at all 9. Thoughts that you would be better off or of hurting yourself in some way: not at all Total score: 5 Depression Screening Interpretation: Positive Depression Screening Follow-up: Existing condition, In treatment, Community Mental Health Worker F/U and Follow-up Visit Requested Depression Screening Done: Yes 92741 - PHQ-9 Billing: Yes Source: Developed by Drs. Kishor Chavira, Janet Graff, Tae Paz and colleagues, with an educational kelley from [employer]. Thrive Questionnaire Date Thrive assessed: 02/15/25 I am a: Patient What is your living situation today?: I have a steady place to live Within the past 12 months, did the food you bought not last and you didn't have the money to get more?: I choose not to answer this question Within the past 12 months, did you worry whether your food would run out before you got money to buy more?: I choose not to answer this question Do you have trouble paying for medicines?: Yes Do you have trouble getting transportation to medical appointments?: No Do you have trouble paying your heating and electricity bill?: No Do you have trouble taking care of your child, family member or friend?: No Do you have trouble with day-to-day activities such as bathing, preparing meals, shopping, managing finances, etc.?: I choose not to answer this question Are you currently unemployed and looking for a job?: No Are you interested in more education?: No Please select the resources that you would like help with: None Currently or been in a relationship where the following occur: No concerns reported THRIVE Score: 0 AUDIT C Alcohol Use Questionnaire (AUDIT-C) 1. How often do you have a drink containing alcohol?: Never Total Score: 0 Score Reviewed/Action Taken: No SABI-7 AMB Questionnaire SABI-7 Date SABI - 7 assessed: 02/15/25 Feeling nervous, anxious, or on edge: 1 = Several days Not being able to stop or control worryin = Not at all Worrying too much about different things: 0 = Not at all Trouble relaxin = Not at all Being so restless that it is hard to sit still: 0 = Not at all Becoming easily annoyed or irritable: 0 = Not at all Feeling afraid as if something awful might happen: 0 = Not at all Total SABI-7 score (0-4 normal; 5-9 mild; 10-14 moderate; 15-21 severe): 1 Source: Developed by Drs. Kishor Chavira, Janet Graff, Tae Paz and colleagues, with an educational kelley from [employer]. SABI-7 Assessment Billing SABI-7 Assessment Tool: SABI-7 Assessment 01336 Review of Systems Const All systems reviewed & are unremarkable except as noted in HPI and below Card Denies chest pain at rest, Denies chest pain with activity, Denies edema, Denies irregular heart rhythm, Denies claudication, Denies dyspnea, Denies dyspnea on exertion, Denies orthopnea, Denies paroxysmal nocturnal dyspnea and Denies slow heart rate Resp Denies cough, Denies dyspnea and Denies dyspnea on exertion GI Denies abdominal pain, Denies change in bowel habits, Denies excessive flatus, Denies nausea and Denies vomiting Denies urinary incontinence, Denies urinary hesitancy and Denies urinary urgency Musc Denies abnormal gait, Denies atrophy, Denies deformity and Denies limited range of motion Skin/Breast Denies bleeding lesions, Denies changing lesions and Denies rash Neuro Denies abnormal gait, Denies behavioral changes and Denies lack of coordination Psych Denies behavioral changes Physical exam (Primary Care) Vital Signs: Last Vital Signs BP 136/80 02/15/25 10:03 BMI result Body Mass Index 34.4 BMI Assessment/Plan discussion: High BMI High, discussed plan: lifestyle, weight reduction, dietary and physical activity Tobacco/Smoking Status: Tobacco use Status Tobacco use date assessed 02/15/25 02/15/25 10:07 Patient Tobacco Use Status Never used Tobacco 02/15/25 10:05 e-Cigarette/Vaping Use Never Used 02/15/25 10:05 PHQ-9: PHQ-9 Score PHQ-9: Total score 5 02/15/25 10:40 Depression Screening Interpretation: Positive Depression Screening Follow-up: Existing condition, In treatment, Community Mental Health Worker F/U and Follow-up Visit Requested Thrive Assessment: Date of Thrive Assessment Date Thrive assessed 02/15/25 02/15/25 10:05 Currently or been in a relationship where the following occur: No concerns reported Resp Effort & Inspection: normal respiratory effort Auscultation: clear to auscultation bilaterally Cardio Jugular venous distension: no JVD Rate: regular rate Rhythm: regular rhythm Heart sounds: S1 normal heart sound present and S2 normal heart sound present Extrem General: Yes full ROM Results AMB Urinalysis, Automated UA Leukoctes 0 Tyson/uL Last Edit by Radhika Reese [facility] on 02/15/25 10:43 UA Nitrite Negative Last Edit by Radhika Reese [facility] on 02/15/25 10:43 UA Urobilinogen 0 mg/dL Last Edit by Radhika Reese [facility] on 02/15/25 10:43 UA Protein 0 mg/dL Last Edit by Radhika Reese [facility] on 02/15/25 10:43 UA pH 6.0 Last Edit by Radhika Reese [facility] on 02/15/25 10:43 UA Blood 0 Gray/uL Last Edit by Radhika Reese [facility] on 02/15/25 10:43 UA Specific [place] 1.020 Last Edit by Radhika Reese [facility] on 02/15/25 10:43 UA Ketone Negative Last Edit by Radhika Reese [facility] on 02/15/25 10:43 UA Bilirubin 0 mg/dL Last Edit by Radhika Reese [facility] on 02/15/25 10:43 UA Glucose 0 mg/dL Last Edit by Radhika Reese [facility] on 02/15/25 10:43 Results Reviewed Results Reviewed: Laboratory Last Values Urine pH (Auto) 6.0 02/15/25 10:35 Specific [place] (Auto) 1.020 02/15/25 10:35 Urine Protein (Auto) 0 mg/dL 02/15/25 10:35 Glucose (UA)(Auto) 0 mg/dL 02/15/25 10:35 Urine Ketones (Auto) Negative 02/15/25 10:35 Urine Blood (Auto) 0 Gray/uL 02/15/25 10:35 Urine Nitrite (Auto) Negative 02/15/25 10:35 Urine Bilirubin (Auto) 0 mg/dL 02/15/25 10:35 Urine Urobilinogen (Auto) 0 mg/dL 02/15/25 10:35 Leukocyte Esterase (Auto) 0 Tyson/uL 02/15/25 10:35 Coding Level of Care Code Est Pt Level 4 (85844) Complex EM visit Add On G2211 Diagnoses Mild recurrent major depression F33.0 Essential hypertension I10 Pure hypercholesterolemia E78.00 Gastroesophageal reflux disease without esophagitis K21.9 Esophagitis presence: without esophagitis Primary osteoarthritis of right knee M17.11 Osteoarthritis type: primary Postlaminectomy syndrome, cervical M96.1 Additional Codes SABI-7 Assessment Billing - SABI-7 Assessment Tool: SABI-7 Assessment 02829 ([id number]) PHQ-9 - 61831 - PHQ-9 Billing: Yes ([id number]) Time Spent (min) 22 Assessment & Plan Assessment & Plan (1) Mild recurrent major depression: Code(s): F33.0 - Major depressive disorder, recurrent, mild Category: Medical (2) Essential hypertension: Code(s): I10 - Essential (primary) hypertension Category: Medical (3) Pure hypercholesterolemia: Code(s): E78.00 - Pure hypercholesterolemia, unspecified Category: Medical (4) GERD (gastroesophageal reflux disease): Code(s): K21.9 - Gastro-esophageal reflux disease without esophagitis Category: Medical Qualifiers: Esophagitis presence: without esophagitis Qualified Code(s): K21.9 - Gastro-esophageal reflux disease without esophagitis (5) Osteoarthritis of right knee: Code(s): M17.11 - Unilateral primary osteoarthritis, right knee Category: Medical Qualifiers: Osteoarthritis type: primary Qualified Code(s): M17.11 - Unilateral primary osteoarthritis, right knee (6) Postlaminectomy syndrome, cervical: Code(s): M96.1 - Postlaminectomy syndrome, not elsewhere classified Category: Medical Plan The management of hypertension will continue with losartan, given the satisfactory control of blood pressure. For the urinary tract infection and persistent hematuria, the patient will maintain follow-up with urology to monitor and manage these conditions. Tachycardia will be monitored, especially in relation to trazodone use, to assess any necessary adjustments in medication. Hyperlipidemia management with atorvastatin will continue, with regular monitoring of cholesterol levels. Constipation management with linaclotide will be maintained, given the reported improvement. Allergic rhinitis and insomnia will continue to be managed with alanna and mirtazapine, respectively. Gastroesophageal reflux disease will be managed with omeprazole, and urinary incontinence will continue to be treated with oxybutynin. For migraines, propranolol will be continued, and further evaluation may be necessary if headaches persist. Restless leg syndrome will be managed with ropinirole, and chronic neck pain will continue to be treated with tramadol and metocarbamol. Osteoarthritis management will involve rheumatology consultation for further evaluation and treatment options. Osteoporosis suspicion will lead to discussions about bone density testing, although no densitometry has been performed yet. Patient was informed and verbally consented to the use of an ambient scribe for clinic note documentation during this visit. Orders: Orders ECG 12 lead EKG Today R07.9 - Chest pain, unspecified AMB Urinalysis Automated Today R31.9 - Hematuria, unspecified Referrals Neurology Referral G43.009 - Migraine without aura, not intractable, without status migrainosus Medications: New methocarbamol 750 mg PO Q8H PRN 21 tabs 1RF muscle spasm 7 days Refilled propranolol 20 mg PO DAILY 90 tabs 1RF 90 days
--- OUTSIDE RECORDS SUMMARY | 2025-02-15 10:04 | XMS_ITS | Clinical Summary ---
Author Organization [employer] Address [address] [place] [address] Care Team Providers Care Painting Manager Name Role Phone Unavailable Primary Care Provider [...] patient's age to complete this topic Insurance [facility] STANDARD HSN [facility]
== END 2025-02-15 10:42 | disposition home or self-care (01) ==
LOC: HO.HMCH 09:39
PROVIDERS: PCP Internal Medicine; Visit Provider Internal Medicine
DX: F33.0 Major depressive disorder, recurrent, mild (principal); I10 Essential (primary) hypertension; E78.00 Pure hypercholesterolemia, unspecified; K21.9 Gastro-esophageal reflux disease without esophagitis; M17.11 Unilateral primary osteoarthritis, right knee; M96.1 Postlaminectomy syndrome, not elsewhere classified; R31.9 Hematuria, unspecified

== ENCOUNTER → 2025-02-15 09:38 | Outpatient (BNVA) | payer OTHER, SELFPAY | PROVIDERS: PCP Internal Medicine; Visit Provider Internal Medicine | DX: I10 Essential (primary) hypertension (principal); N02.9 Recurrent and persistent hematuria with unspecified morphologic changes; E78.5 Hyperlipidemia, unspecified; R00.0 Tachycardia, unspecified; J30.9 Allergic rhinitis, unspecified; K21.9 Gastro-esophageal reflux disease without esophagitis; M54.2 Cervicalgia; G89.29 Other chronic pain; G43.909 Migraine, unspecified, not intractable, without status migrainosus; F33.0 Major depressive disorder, recurrent, mild; E78.00 Pure hypercholesterolemia, unspecified; M17.11 Unilateral primary osteoarthritis, right knee; M96.1 Postlaminectomy syndrome, not elsewhere classified; Z79.899 Other long term (current) drug therapy; R07.9 Chest pain, unspecified | CPT/HCPCS: 81003; 96127; 99212 ==

== ENCOUNTER 2025-02-26 08:38 | Outpatient (AMB) | payer OTHER, SELFPAY ==
--- NOTE | 2025-02-26 08:40 | MHC.OFFVIS ---
Vital Signs 02/26/25 08:54 Height 5 ft 1 in Weight 181 lb 14.102 oz BMI 34.4 BP 140/82 H Blood Pressure Location Lt brachial Position Sitting Pulse 81 Pulse Source Pulse Oximeter Pulse Oximetry (%) 98 Oxygen Delivery Method Room Air Intake Visit Reasons: FMS(MD sarah 2 wk f/u) Intake Note: Patient presents for FMS follow up. Patient stated she was receiving Tramadol from Doctor Carolyn. She will like a refill. Patient will wants to know why kind of RA she has and learn more about her diagnoses. Executive Assistant To General Counsel Required: Yes Executive Assistant To General Counsel Language: Barrel Inspector Tight Services: Executive Assistant To General Counsel Offered & Declined Information Interpreted: non-clinical & clinical Allergies trazodone (TRAZODONE) Allergy (Intermediate, Verified 02/26/25 08:49) TACHYCARDIA HPI Comments Details: Patient is a 54-year-old female with migraines, hyperlipidemia, hypertension, depression, polyarticular osteoarthritis and fibromyalgia here today for follow up Interval History: Patient last seen 01/2025 with me - C/o of right knee pain - XRs ordered Since then got the XRs and had received some methocarbamol from her PCP which helped Did not receive the tramadol Today - Continues to have knee pain russell with walking up and down stairs - Requesting methocarbamol Rheumatologic History: Polyarticular OA Fibromyalgia Current Rheumatology Medication(s): Gabapentin 400mg tid Tramadol 50mg tid prn PFSH Medical History Physical exam Hemorrhoids with complication Carpal tunnel syndrome Cervical paraspinal muscle spasm Constipation Pre-diabetes Medication monitoring encounter Osteoarthritis of right knee Cervical radiculopathy Degeneration, intervertebral disc, cervical Cervical spondylosis Cervicalgia Irregular bleeding Migraines Class 1 obesity due to excess calories without serious comorbidity with body mass index (BMI) of 30.0 to 30.9 in adult Pure hypercholesterolemia Fibromyalgia GERD (gastroesophageal reflux disease) Surgical History Hx of endoscopy History of carpal tunnel release Hx of hemorrhoidectomy (~07/24/24) H/O colonoscopy H/O laminectomy Hx of tubal ligation History of laparoscopic cholecystectomy Family History Father No problems noted. 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 Current occupational exposures/hazards: No Gender identity: Female Cognitive needs: No Hearing needs: No Vision needs: No Review of Systems Const Details: Review of Systems Constitutional: Denies fever, chills, weight loss ENT: Denies vision changes, eye pain or eye redness, dental caries, dry mouth GI: Denies nausea, vomiting, diarrhea, abdominal pain, change in BM Pulm: Denies SOB, DIAS, hemoptysis, wheezing Cards: Denies chest pain, palpitations Skin: Denies Raynaud's, rash, nail changes, photosensitivity, CORRECTIONAL PROGRAM SPECIALIST: Denies headaches, weakness, paresthesias, recurrent falls MSK: as per HPI All other systems reviewed and are unremarkable except noted above Physical Exam Vital Signs: Last Vital Signs Pulse 81 02/26/25 08:54 BP 140/82 H 02/26/25 08:54 Pulse Ox 98 02/26/25 08:54 Oxygen Delivery Method Room Air 02/26/25 08:54 BMI result Body Mass Index 34.4 Vital signs reviewed Physical Examination CONSTITUITIONAL Patient alert and cooperative. Well appearing and in no apparent painful distress HEENT Conjunctiva and sclera clear. No lymphadenopathy. CHEST/RESPIRATORY SYSTEM Normal respiratory effort and able to speak in complete sentences. Clear to auscultation bilaterally. No crackles, rales, rhonchi, wheezes heard. CARDIAC SYSTEM Regular rate and rhythm. S1 and S2 heard no murmurs. Radial pulses intact bilaterally MSK Hands Right Hand: Able to make a fist. No swelling or tenderness to palpation of these joints. Early herbeden's nodes Left Hand: Able to make a fist. No swelling or tenderness to palpation of these joints. Early herbeden's nodes Wrists Right Wrist: Full ROM. 70 degrees of wrist flexion, 80 degrees of wrist extension. No swelling or TTP Left Wrist: Full ROM. 70 degrees of wrist flexion, 80 degrees of wrist extension. No swelling or TTP Elbows Right Elbow: Full ROM. No swelling or TTP. No TTP of the medial and lateral epicondyles Left Elbow: Full ROM. No swelling or TTP. No TTP of the medial and lateral epicondyles Shoulders Right shoulder: Full ROM. No swelling noted. No TTP of the AC joint, subacromial bursa or posterior shoulder Left shoulder: Full ROM. No swelling noted. No TTP of the AC joint, subacromial bursa or posterior shoulder Knees Right knee: Full ROM. No swelling noted. TTP of the superior patella pole and pes anserine bursa Left knee: Full ROM. No swelling noted. No TTP of the knee joint lie or pes anserine bursa. Ankles Right ankle: Good ankle dorsiflexion and plantar flexion. Mild swelling and TTP of the lateral right ankle Left ankle: Good ankle dorsiflexion and plantar flexion. No swelling. No TTP of the ankle joint Feet Right foot: Negative squeeze test Left foot: Negative squeeze test Tender points? No tenderness to palpation of the bilateral trapezius, supraspinatus, anterior costochondral junctions, bilateral suboccipital muscle insertions SKIN No rashes Results Reviewed Results Reviewed: Laboratory Tests 11/28/22 12/26/24 09:36 00:48 WBC 9.8 RBC 4.06 L Hgb 12.4 Hct 37.8 Plt Count 313 ESR 16 Sodium 143 Potassium 4.9 D Chloride 107 Carbon Dioxide 25 BUN 9 Creatinine 0.73 AST 29 ALT 32 H Alkaline Phosphatase 95 C-Reactive Protein 0.80 H Total Protein 7.6 Albumin 4.1 XR Right Knee 01/2025 FINDINGS: No acute cortical disruption or gross malalignment. Mild joint space narrowing involving the medial compartment. No gross suprapatellar bursa joint effusion. No lytic or blastic lesions. IMPRESSION: Mild medial compartment osteoarthrosis. XR Ankle 12/2024 FINDINGS: Three views of the right ankle are submitted. Osseous mineralization is normal. There is no fracture or dislocation. The joint spaces are preserved. The soft tissues are unremarkable. IMPRESSION: Unremarkable examination of the right ankle EMG 06/2024 Bilateral tibial and peroneal motor studies were performed. Bilateral superficial peroneal, sural and median and lateral mixed plantar sensory studies were performed. Tibial H-reflexes were obtained and paraspinal muscles were tested with a needle. 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 Otherwise, no significant abnormality noted. Assessment & Plan Assessment & Plan (1) Osteoarthritis of right knee: Code(s): M17.11 - Unilateral primary osteoarthritis, right knee Category: Medical Qualifiers: Osteoarthritis type: primary Qualified Code(s): M17.11 - Unilateral primary osteoarthritis, right knee Plan: #Knee OA Patient is a 54 y.o. female with knee OA confirmed by exam and XRs Has tried steroid injections in the past, last one 05/25/24 only lasted 1 month Discussed gel injections and patient is amenable Plan - Send PA for gel injection of right knee. Durolane (2) Fibromyalgia: Code(s): M79.7 - Fibromyalgia Category: Medical Plan: #Fibromyalgia Patient with fibromyalgia Still with continued pain Doing better on tramadol and gabapentin Will also prescribe methocarbamol Plan - Methocarbamol 750mg bid - Tramadol 50mg tid - Gabapentin 400mg tid Plan I spent 20 minutes reviewing the record and labs, taking a history, examining the patient, discussing the treatment plan, ordering diagnostic work up and documenting in the medical record Medications: Changed From methocarbamol 750 mg PO Q8H 7 days PRN 21 tabs 1RF muscle spasm M79.7 - Fibromyalgia To methocarbamol 750 mg PO BID 60 tabs 5RF muscle spasm 30 days M79.7 - Fibromyalgia From tramadol 50 mg PO TID PRN M79.7 - Fibromyalgia To tramadol 50 mg PO TID 90 tabs 5RF M79.7 - Fibromyalgia Coding Level of Care Code Est Pt Level 3 (14432) Diagnoses Primary osteoarthritis of right knee M17.11 Osteoarthritis type: primary Fibromyalgia M79.7
--- OUTSIDE RECORDS SUMMARY | 2025-02-26 08:44 | XMS_ITS | Clinical Summary ---
Author Organization [employer] Address [address] [place] [address] Care Team Providers Care Licensed Vocational Nurse Name Role Phone Unavailable Primary Care Provider [...] 08/28/2021, Additional history exists Influenza Vaccine (#1) 2025 , 08/09/2022, 07/02/2018, Additional history exists DTaP/Tdap/Td [...] patient's age to complete this topic Insurance [facility] STANDARD HSN [facility]IAL [facility] [place] [id number]
[2025-02-26 08:54] VITALS: BP 140/82; PULSE 81; O2SAT 98; BMI 34.4
== END 2025-02-26 09:11 | disposition home or self-care (01) ==
LOC: HO.RHE 08:39
PROVIDERS: PCP Internal Medicine; Visit Provider Student in an Organized Health Care Education/Training Program
DX: M17.11 Unilateral primary osteoarthritis, right knee (principal); M79.7 Fibromyalgia
CPT/HCPCS: 99213

== ENCOUNTER → 2025-02-26 08:38 | Outpatient (BNVA) | payer OTHER, SELFPAY | PROVIDERS: PCP Internal Medicine; Visit Provider Student in an Organized Health Care Education/Training Program | DX: M17.11 Unilateral primary osteoarthritis, right knee (principal); M79.7 Fibromyalgia | CPT/HCPCS: 99212 ==

== ENCOUNTER 2025-03-03 11:16 | Outpatient (AMB) | payer OTHER, SELFPAY ==
--- NOTE | 2025-03-03 11:21 | A.OFFVIS_ITS ---
Vital Signs 03/03/25 11:22 Height 5 ft 1 in Weight 176 lb 5.917 oz BMI 33.3 BP 137/67 Blood Pressure Location Lt brachial Position Sitting Pulse 69 Intake Visit Reasons: 2 month CIC / DYSPHAGIA Intake Note: Ashley presents in the office as a 2 month follow up for CIC and Dysphagia. CC: She states that she is having issues with her swallowing still but constipation is okay. She states that the pills are working with constipation but when she eats she has issues when she goes to bed. Quality Controller Required: Yes Quality Controller Name: [id number] Allergies trazodone (TRAZODONE) Allergy (Intermediate, Verified 03/03/25 11:22) TACHYCARDIA HPI HPI 2 month CIC / DYSPHAGIA: Details: Assessment & Plan (1) GERD (gastroesophageal reflux disease): Code(s): K21.9 - Gastro-esophageal reflux disease without esophagitis Category: Medical Qualifiers: Esophagitis presence: without esophagitis Qualified Code(s): K21.9 - Gastro-esophageal reflux disease without esophagitis (2) Pre-op examination: Code(s): Z01.818 - Encounter for other preprocedural examination Category: Medical (3) Dysphagia: Code(s): R13.10 - Dysphagia, unspecified Category: Medical Qualifiers: Dysphagia type: pharyngeal phase Qualified Code(s): R13.13 - Dysphagia, pharyngeal phase (4) Odynophagia: Code(s): R13.10 - Dysphagia, unspecified Category: Medical (5) Constipation: Code(s): K59.00 - Constipation, unspecified Category: Medical Plan [place] #Sheldon lIVE She had good relief for about 2-3 mos, but the dysphagia has returned. I explain that some require multiple dilations. She had discomfort 2-3 days after, will tty to rx some lidocaine gargle. The bisacodyl is not giving her good CIC relief, will progress to LInzess since she has failed colace, senna, miralax, fiber, and dulcolax. Start at 145mcg and titrate. ROV next avail. Orders: Orders EGD - GI Use Only Today K21.9 - Gastro-esophageal reflux disease without esophagitis, R13.13 - Dysphagia, pharyngeal phase, Z01.818 - Encounter for other preprocedural examination Medications: New linaclotide (Linzess) Take first thing in the morning with a full glass of water. 145 mcg PO QAM 30 caps 3RF K58.1 - Irritable bowel syndrome with constipation lidocaine HCl 4% gargle bid s/p esophageal dilation to promote less pain 2 mL topical BID 32 mL 0RF R13.10 - Dysphagia, unspecified Refilled omeprazole 40 mg PO BID 60 caps 3RF psyllium husk (Reguloid (psyllium husk)) 0.8 grams (2 x 0.4 gram) PO BEDTIME 60 caps 3RF K59.00 - Constipation, unspecified EGD BIOPSY TODAY'S VISIT [place] #[id number] Alcides SHE IS CURRENTLY ON OMEPRAZOLE 40 mg twice a day, psyllium husk fiber, and Linzess 145 micro g was started at the last visit. She feels she is not having complete emptying even though s he is moving her bowels better, so we will increase to 290mcg and titrate. She is still awaiting the EGD for her dysphagia. ROV 6 weeks. [facility] Medical History (Updated 03/03/25 @ 11:29 by QUINTEN Oro) Odynophagia Hemorrhoids Pure hypercholesterolemia Essential hypertension Physical exam Hemorrhoids with complication Carpal tunnel syndrome Cervical paraspinal muscle spasm Constipation Pre-diabetes Medication monitoring encounter Osteoarthritis of right knee Cervical radiculopathy Degeneration, intervertebral disc, cervical Cervical spondylosis Cervicalgia Irregular bleeding Migraines Class 1 obesity due to excess calories without serious comorbidity with body mass index (BMI) of 30.0 to 30.9 in adult Fibromyalgia GERD (gastroesophageal reflux disease) Surgical History Hx of endoscopy History of carpal tunnel release Hx of hemorrhoidectomy (~07/24/24) H/O colonoscopy H/O laminectomy Hx of tubal ligation History of laparoscopic cholecystectomy Family History Father No problems noted. 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 Current occupational exposures/hazards: No Gender identity: Female Cognitive needs: No Hearing needs: No Vision needs: No Review of Systems Const Denies fatigue, Denies fever(s), Denies night sweats, Denies poor appetite and Denies weight loss ENT Reports Normal hearing present, Denies dental pain, Reports dysphagia, Denies hearing loss, Denies mouth pain, Denies odynophagia, Denies throat swelling, Denies tongue swelling and Reports other (Dentition adequate) Card Reports no additional complaints Resp Reports no additional complaints GI Details: Denies abdominal pain, Denies melena, Denies bloating, Denies hematochezia, Reports constipation, Denies GI cramping, Reports dysphagia, Denies excessive flatus, Denies early satiety, Reports heartburn, Denies diarrhea, Denies nausea, Denies odynophagia, Denies vomiting and Denies hematemesis Skin/Breast Denies pruritus, Denies lesions, Denies rash and Denies jaundice Neuro Reports Normal hearing present and Denies Abnormal speech present Endo Denies fatigue Aller/Immun Denies throat swelling and Denies tongue swelling Physical Exam Vital Signs: Last Vital Signs Pulse 69 03/03/25 11:22 BP 137/67 03/03/25 11:22 BMI result Body Mass Index 33.3 Const General: cooperative, no acute distress, well developed and well groomed Nutritional Appearance: well nourished and obese Orientation/consciousness: oriented to person, oriented to place and oriented to time Limitations: language barrier HEENT Head: Yes normocephalic and Yes atraumatic Eyes General: appearance normal, both eyes and all related structures Pupils: Equal, round and reactive pupils present Neck Neck: Yes normal visual inspection and Yes no lymphadenopathy Thyroid: Thyroid normal Resp Effort & Inspection: normal respiratory effort and able to speak in complete sentences Auscultation: clear to auscultation bilaterally Cardio Rate: regular rate Rhythm: regular rhythm Heart sounds: Normal, physiologic split S2 sound present Peripheral pulses: radial pulses present and posterior tibial pulses present GI Inspection: No distended, Yes Abdominal panniculus present and Yes obesity Palpation (GI): Soft to palpation, nontender, no guarding, not rigid and No hepatosplenomegaly present Percussion: Yes normal to percussion Auscultation: normal bowel sounds Rectal Exam - Female: deferred Skin General skin exam: no rashes or lesions noted, turgor normal, skin not dry, no jaundice, No spider nevi and no striae Rashes: no rashes Nails: normal Neuro General: oriented to person, oriented to place and oriented to time Cranial nerves: Yes Equal, round and reactive pupils present and Yes Normal hearing present Speech: No Abnormal speech present Extrem General: Yes normal to inspection, No clubbing, No cyanosis and No edema Psych Appearance: grossly normal and well kempt Mental Status: mental status grossly normal Speech and movement: Normal speech and movement present Affect: normal affect Attitude: cooperative Thought process: Normal thought process present and not confabulating Thought content: Normal thought content present Insight: Fair insight present (Psych) and Limited insight present (Psych) Judgement: Fair judgement present (Psych) and Limited judgement present (Psych) Assessment & Plan Assessment & Plan (1) GERD (gastroesophageal reflux disease): Code(s): K21.9 - Gastro-esophageal reflux disease without esophagitis Category: Medical Qualifiers: Esophagitis presence: without esophagitis Qualified Code(s): K21.9 - Gastro-esophageal reflux disease without esophagitis (2) Dysphagia: Code(s): R13.10 - Dysphagia, unspecified Category: Medical Qualifiers: Dysphagia type: pharyngeal phase Qualified Code(s): R13.13 - Dysphagia, pharyngeal phase (3) Constipation: Code(s): K59.00 - Constipation, unspecified Category: Medical Plan [place] #[id number] Alcides SHE IS CURRENTLY ON OMEPRAZOLE 40 mg twice a day, psyllium husk fiber, and Linzess 145 micro g was started at the last visit. She feels she is not having complete emptying even though s he is moving her bowels better, so we will increase to 290mcg and titrate. She is still awaiting the EGD for her dysphagia. ROV 6 weeks. Medications: New linaclotide (Linzess) 290 mcg PO QAM 30 caps 6RF 30 days K59.00 - Constipation, unspecified Refilled omeprazole 40 mg PO BID 60 caps 6RF Discontinued linaclotide (Linzess) Take first thing in the morning with a full glass of water. Discontinued Reason: Doctor's Order 145 mcg PO QAM 30 caps 3RF K58.1 - Irritable bowel syndrome with constipation Coding Level of Care Code Est Pt Level 3 (40087) Diagnoses Gastroesophageal reflux disease without esophagitis K21.9 Esophagitis presence: without esophagitis Pharyngeal dysphagia R13.13 Dysphagia type: pharyngeal phase Constipation K59.00
[2025-03-03 11:22] VITALS: BP 137/67; PULSE 69; BMI 33.3
--- OUTSIDE RECORDS SUMMARY | 2025-03-03 12:08 | XMS_ITS | Clinical Summary ---
Author Organization [employer] Address [address] [place] [address] Care Team Providers Care Music Store Manager Name Role Phone Unavailable Primary Care [...] patient's age to complete this topic Insurance [facility] STANDARD HSN PARTIAL [facility]
== END 2025-03-03 11:58 | disposition home or self-care (01) ==
LOC: HO.HGI 11:16
PROVIDERS: PCP Internal Medicine; Visit Provider Nurse Practitioner
DX: K21.9 Gastro-esophageal reflux disease without esophagitis (principal); R13.13 Dysphagia, pharyngeal phase; K59.00 Constipation, unspecified
CPT/HCPCS: 99213

== ENCOUNTER → 2025-03-03 11:16 | Outpatient (BNVA) | payer OTHER, SELFPAY | PROVIDERS: PCP Internal Medicine; Visit Provider Nurse Practitioner | DX: K21.9 Gastro-esophageal reflux disease without esophagitis (principal); K58.1 Irritable bowel syndrome with constipation; K59.04 Chronic idiopathic constipation; R13.13 Dysphagia, pharyngeal phase | CPT/HCPCS: 99212 ==

== ENCOUNTER 2025-04-14 08:57 | Outpatient (AMB) | payer OTHER, SELFPAY ==
--- NOTE | 2025-04-14 09:02 | MHC.OFFVIS ---
Vital Signs 04/14/25 09:06 Height 5 ft 1 in Weight 181 lb BMI 34.2 BP 133/75 Blood Pressure Location Lt brachial Position Sitting Pulse 80 Intake Visit Reasons: 6w CIC / DYSPHAGIA Intake Note: Patient 6 week for CIC / DYSPHAGIA Patient cc: dysphagia and she is been waiting for the EGD appt for couples of month, acid reflux on and off if patient does not take her med and constipation is much better with the new medication. Denies any other GI issues. Corporate Tax Preparer Required: Yes Corporate Tax Preparer [place] [facility] [place] Accompanied by: Self / Same As Patient Allergies trazodone (TRAZODONE) Allergy (Intermediate, Verified 04/14/25 09:02) TACHYCARDIA HPI HPI 6w CIC / DYSPHAGIA: Details: Assessment & Plan (1) GERD (gastroesophageal reflux disease): Code(s): K21.9 - Gastro-esophageal reflux disease without esophagitis Category: Medical Qualifiers: Esophagitis presence: without esophagitis Qualified Code(s): K21.9 - Gastro-esophageal reflux disease without esophagitis (2) Dysphagia: Code(s): R13.10 - Dysphagia, unspecified Category: Medical Qualifiers: Dysphagia type: pharyngeal phase Qualified Code(s): R13.13 - Dysphagia, pharyngeal phase (3) Constipation: Code(s): K59.00 - Constipation, unspecified Category: Medical Plan [place] #[id number] Alcides SHE IS CURRENTLY ON OMEPRAZOLE 40 mg twice a day, psyllium husk fiber, and Linzess 145 micro g was started at the last visit. She feels she is not having complete emptying even though s he is moving her bowels better, so we will increase to 290mcg and titrate. She is still awaiting the EGD for her dysphagia. ROV 6 weeks. Medications: New linaclotide (Linzess) 290 mcg PO QAM 30 caps 6RF 30 days K59.00 - Constipation, unspecified Refilled omeprazole 40 mg PO BID 60 caps 6RF Discontinued linaclotide (Linzess) Take first thing in the morning with a full glass of water. Discontinued Reason: Doctor's Order 145 mcg PO QAM 30 caps 3RF K58.1 - Irritable bowel syndrome with constipation TODAY'S VISIT [place] Nona Romero COUNTS INCLUDE 234 BEDS AT THE [facility] Medical History (Updated 03/03/25 @ 11:29 by QUINTEN Oro) Odynophagia Hemorrhoids Pure hypercholesterolemia Essential hypertension Physical exam Hemorrhoids with complication Carpal tunnel syndrome Cervical paraspinal muscle spasm Constipation Pre-diabetes Medication monitoring encounter Osteoarthritis of right knee Cervical radiculopathy Degeneration, intervertebral disc, cervical Cervical spondylosis Cervicalgia Irregular bleeding Migraines Class 1 obesity due to excess calories without serious comorbidity with body mass index (BMI) of 30.0 to 30.9 in adult Fibromyalgia GERD (gastroesophageal reflux disease) Surgical History Hx of endoscopy History of carpal tunnel release Hx of hemorrhoidectomy (~07/24/24) H/O colonoscopy H/O laminectomy Hx of tubal ligation History of laparoscopic cholecystectomy Family History Father No problems noted. 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 Current occupational exposures/hazards: No Gender identity: Female Cognitive needs: No Hearing needs: No Vision needs: No Review of Systems Const Denies fatigue, Denies fever(s), Denies night sweats, Denies poor appetite and Denies weight loss ENT Reports Normal hearing present, Denies dental pain, Reports dysphagia, Denies hearing loss, Denies mouth pain, Denies odynophagia, Denies throat swelling, Denies tongue swelling and Reports other (Dentition adequate) Card Reports no additional complaints Resp Reports no additional complaints GI Details: Denies abdominal pain, Denies melena, Denies bloating, Denies hematochezia, Reports constipation, Denies GI cramping, Reports dysphagia, Denies excessive flatus, Denies early satiety, Reports heartburn, Denies diarrhea, Denies nausea, Denies odynophagia, Denies vomiting and Denies hematemesis Skin/Breast Denies pruritus, Denies lesions, Denies rash and Denies jaundice Neuro Reports Normal hearing present and Denies Abnormal speech present Endo Denies fatigue Aller/Immun Denies throat swelling and Denies tongue swelling Physical Exam Vital Signs: Last Vital Signs Pulse 80 04/14/25 09:06 BP 133/75 04/14/25 09:06 BMI result Body Mass Index 34.2 Const General: cooperative, no acute distress, well developed and well groomed Nutritional Appearance: well nourished and obese Orientation/consciousness: oriented to person, oriented to place and oriented to time Limitations: language barrier HEENT Head: Yes normocephalic and Yes atraumatic Eyes General: appearance normal, both eyes and all related structures Pupils: Equal, round and reactive pupils present Neck Neck: Yes normal visual inspection and Yes no lymphadenopathy Thyroid: Thyroid normal Resp Effort & Inspection: normal respiratory effort and able to speak in complete sentences Auscultation: clear to auscultation bilaterally Cardio Rate: regular rate Rhythm: regular rhythm Heart sounds: Normal, physiologic split S2 sound present Peripheral pulses: radial pulses present and posterior tibial pulses present GI Inspection: No distended, Yes Abdominal panniculus present and Yes obesity Palpation (GI): Soft to palpation, nontender, no guarding, not rigid and No hepatosplenomegaly present Percussion: Yes normal to percussion Auscultation: normal bowel sounds Rectal Exam - Female: deferred Skin General skin exam: no rashes or lesions noted, turgor normal, skin not dry, no jaundice, No spider nevi and no striae Rashes: no rashes Nails: normal Neuro General: oriented to person, oriented to place and oriented to time Cranial nerves: Yes Equal, round and reactive pupils present and Yes Normal hearing present Speech: No Abnormal speech present Extrem General: Yes normal to inspection, No clubbing, No cyanosis and No edema Psych Appearance: grossly normal and well kempt Mental Status: mental status grossly normal Speech and movement: Normal speech and movement present Affect: normal affect Attitude: cooperative Thought process: Normal thought process present and not confabulating Thought content: Normal thought content present Insight: Fair insight present (Psych) Judgement: Fair judgement present (Psych) Assessment & Plan Assessment & Plan (1) Dysphagia: Code(s): R13.10 - Dysphagia, unspecified Category: Medical Qualifiers: Dysphagia type: pharyngeal phase Qualified Code(s): R13.13 - Dysphagia, pharyngeal phase (2) GERD (gastroesophageal reflux disease): Code(s): K21.9 - Gastro-esophageal reflux disease without esophagitis Category: Medical Qualifiers: Esophagitis presence: without esophagitis Qualified Code(s): K21.9 - Gastro-esophageal reflux disease without esophagitis (3) Constipation: Code(s): K59.00 - Constipation, unspecified Category: Medical Plan - The patient is a 54-year-old female presenting with dysphagia, GERD, and constipation. We increased her Linzess to 290 micro g at the last visit and this has resolved her constipation as well. She continues on omeprazole 40 mg twice a day. - The patient has a history of esophageal stricture which required prior esophageal dilations, successfully providing temporary relief each time. - She reports persistent dysphagia with solid foods, causing them to have slowed passage in the upper pharyngeal area. - she initially had a good response with previous esophageal dilations, the swallowing difficulties have recurred over time. - so far she is eating slowly, chewing thoroughly, and cutting things up small but we did discuss potentially going on a soft diet/pureed diet to minimize choking. - Endoscopic procedures to monitor and potentially alleviate this condition have been delayed due to service backlogs. Return office visit in 3 months Coding Level of Care Code Est Pt Level 3 (67685) Diagnoses Pharyngeal dysphagia R13.13 Dysphagia type: pharyngeal phase Gastroesophageal reflux disease without esophagitis K21.9 Esophagitis presence: without esophagitis Constipation K59.00
[2025-04-14 09:06] VITALS: BP 133/75; PULSE 80; BMI 34.2
--- OUTSIDE RECORDS SUMMARY | 2025-04-14 09:26 | XMS_ITS | Clinical Summary ---
Author Organization [employer] Address [address] [place] [address] Care Team Providers Care Construction Management Instructor Name Role Phone Unavailable Primary Care Provider [...] patient's age to complete this topic Insurance [facility] STANDARD [facility]
== END 2025-04-14 09:25 | disposition home or self-care (01) ==
LOC: HO.HGI 08:58
PROVIDERS: PCP Internal Medicine; Visit Provider Nurse Practitioner
DX: R13.13 Dysphagia, pharyngeal phase (principal); K21.9 Gastro-esophageal reflux disease without esophagitis; K59.00 Constipation, unspecified
CPT/HCPCS: 99213

== ENCOUNTER → 2025-04-14 08:57 | Outpatient (BNVA) | payer OTHER, SELFPAY | PROVIDERS: PCP Internal Medicine; Visit Provider Nurse Practitioner | DX: M17.11 Unilateral primary osteoarthritis, right knee (principal); R13.13 Dysphagia, pharyngeal phase; K21.9 Gastro-esophageal reflux disease without esophagitis; K59.00 Constipation, unspecified; Z79.899 Other long term (current) drug therapy | CPT/HCPCS: 20610; 99212; J7318 ==

== ENCOUNTER 2025-04-14 13:52 | Outpatient (AMB) | payer OTHER, SELFPAY ==
[2025-04-14 14:20] VITALS: BP 118/64; PULSE 77; O2SAT 97; BMI 34.3
--- NOTE | 2025-04-14 14:20 | A.OFFVIS_ITS ---
Vital Signs 04/14/25 14:20 Height 5 ft 1 in Weight 181 lb 7.047 oz BMI 34.3 BP 118/64 Blood Pressure Location Lt brachial Position Sitting Pulse 77 Pulse Source Pulse Oximeter Pulse Oximetry (%) 97 Oxygen Delivery Method Room Air Intake Visit Reasons: Rt Knee/ Durolaine injection Intake Note: Patient presents for right knee Durolaine injection. Traffic Control Signaler Services: Traffic Control Signaler Offered & Declined Traffic Control Signaler Name: Patient presents for right kne Accompanied by: Daughter Allergies trazodone (TRAZODONE) Allergy (Intermediate, Verified 04/14/25 14:24) TACHYCARDIA Medication List - Last Reconciled 04/14/25 by Caron Dyer MD atorvastatin 10 mg PO BEDTIME 90 days cromolyn 4% 1 drp ophthalmic (eye) 6XD 7 days famotidine (Pepcid) 40 mg PO BEDTIME gabapentin 400 mg PO TID lidocaine HCl 2 mL PO BID linaclotide (Linzess) 290 mcg PO QAM 30 days loratadine (Allergy Relief (loratadine)) 10 mg PO DAILY 90 days losartan 50 mg PO DAILY 90 days methocarbamol 750 mg PO BID 30 days mirtazapine (Remeron) 15 mg PO BEDTIME 90 days omeprazole 40 mg PO DAILY oxybutynin chloride 5 mg PO BEDTIME PRN 30 days propranolol 20 mg PO DAILY 90 days psyllium husk (Reguloid (psyllium husk)) 0.8 grams (2 x 0.4 gram) PO BEDTIME ropinirole 0.5 mg PO BEDTIME 90 days tramadol 50 mg PO TID HPI Comments Details: Patient is a 54-year-old female with migraines, hyperlipidemia, hypertension, depression, polyarticular osteoarthritis and fibromyalgia here today for follow up Interval History: Patient last seen 02/26/25 with me - On gabapentin 400mg tid and tramadol 50mg TID prn - Continues to have knee pain russell with walking up and down stairs - Started methocarbamol Today, - On gabapentin 400mg tid, methocarbamol 750mg bid and tramadol 50mg TID prn - Here today for durolane injection of the right knee Rheumatologic History: Polyarticular OA Fibromyalgia Current Rheumatology Medication(s): Gabapentin 400mg tid Tramadol 50mg tid prn Methocarbamol 750mg bid prn [facility] Medical History (Updated 03/03/25 @ 11:29 by QUINTEN Oro) Odynophagia Hemorrhoids Pure hypercholesterolemia Essential hypertension Physical exam Hemorrhoids with complication Carpal tunnel syndrome Cervical paraspinal muscle spasm Constipation Pre-diabetes Medication monitoring encounter Osteoarthritis of right knee Cervical radiculopathy Degeneration, intervertebral disc, cervical Cervical spondylosis Cervicalgia Irregular bleeding Migraines Class 1 obesity due to excess calories without serious comorbidity with body mass index (BMI) of 30.0 to 30.9 in adult Fibromyalgia GERD (gastroesophageal reflux disease) Surgical History Hx of endoscopy History of carpal tunnel release Hx of hemorrhoidectomy (~07/24/24) H/O colonoscopy H/O laminectomy Hx of tubal ligation History of laparoscopic cholecystectomy Family History Father No problems noted. 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 Current occupational exposures/hazards: No Gender identity: Female Cognitive needs: No Hearing needs: No Vision needs: No Review of Systems Const Details: Review of Systems Constitutional: Denies fever, chills, weight loss ENT: Denies vision changes, eye pain or eye redness, dental caries, dry mouth GI: Denies nausea, vomiting, diarrhea, abdominal pain, change in BM Pulm: Denies SOB, DIAS, hemoptysis, wheezing Cards: Denies chest pain, palpitations Skin: Denies Raynaud's, rash, nail changes, photosensitivity, BICYCLE ASSEMBLER: Denies headaches, weakness, paresthesias, recurrent falls MSK: as per HPI All other systems reviewed and are unremarkable except noted above Physical Exam Exam Exam: Vital signs reviewed Physical Examination CONSTITUITIONAL Patient alert and cooperative. Well appearing and in no apparent painful distress MSK Knees * Right knee: Full ROM. No swelling noted. TTP of the knee joint line. No TTP of pes anserine bursa * Left knee: Full ROM. No swelling noted. No TTP of the knee joint line. No TTP of pes anserine bursa. Vital Signs: Last Vital Signs Pulse 77 04/14/25 14:20 BP 118/64 04/14/25 14:20 Pulse Ox 97 04/14/25 14:20 Oxygen Delivery Method Room Air 04/14/25 14:20 BMI result Body Mass Index 34.3 Office Procedures AMB Joint Injection/Aspiration Joint Injection/Aspiration Details: Procedure was explained to the patient and informed consent was obtained. ? Risks associated with the procedure were discussed with the patient including but not limited to bleeding, infection, drug reactions and reactions to the topical anesthetic. Patient made aware of signs to look out for infectious complications. The area of interest was identified and confirmed with patient. ?This was subsequently cleaned with chlorhexidine x 2. ? The area was then anesthetized using ethyl chloride spray. 3cc durolane was injected without issue. ?Minimal to no bleeding. ?Patient tolerated procedure. Primary Site: right knee Prep: site was prepped using aseptic technique and ethochloride spray was applied Injected: other Approach Used: anterior Procedure: The patient tolerated the procedure well Coding 97697 - Large joint Procedure code (CPT) selection complete Office Meds Durolane 60 mg/3 mL intra-articular syringe Performing Provider: Caron Dyer MD Per[place] Location[place] [facility] [place] [facility] Administered by: Caron Dyer MD on 04/14/25 14:58 Dose Route Admin Location Dispensed Lot Number Expiration Date [facility] [employer] Administrator 60 mg intra-articular right knee 3 mL [id number] 07/18/27 [address]-2 SPO Total Dispensed Waste 3 mL 0 % Results Reviewed Results Reviewed: XR Right Knee 01/2025 FINDINGS: No acute cortical disruption or gross malalignment. Mild joint space narrowing involving the medial compartment. No gross suprapatellar bursa joint effusion. No lytic or blastic lesions. IMPRESSION: Mild medial compartment osteoarthrosis. Assessment & Plan Assessment & Plan (1) Osteoarthritis of right knee: Code(s): M17.11 - Unilateral primary osteoarthritis, right knee Category: Medical Qualifiers: Osteoarthritis type: primary Qualified Code(s): M17.11 - Unilateral primary osteoarthritis, right knee Plan: #Knee OA Patient is a 54 y.o. female with knee OA confirmed by exam and XRs Has tried steroid injections in the past, last one 05/25/24 only lasted 1 month Discussed gel injections and patient is amenable Plan - s/p durolane injection today - RTC 3-4 months Plan I spent 20 minutes reviewing the record and labs, taking a history, examining the patient, discussing the treatment plan, ordering diagnostic work up and documenting in the medical record Orders: Orders AMB Joint Injection/Aspiration Today M17.11 - Unilateral primary osteoarthritis, right knee Coding Level of Care Code Est Pt Level 3 (29882) Diagnoses Primary osteoarthritis of right knee M17.11 Osteoarthritis type: primary CPT Codes Coding - 11965 Large joint: 27546 - Large joint ([id number])
== END 2025-04-14 14:48 | disposition home or self-care (01) ==
LOC: HO.RHES 13:53
PROVIDERS: PCP Internal Medicine; Visit Provider Student in an Organized Health Care Education/Training Program
DX: M17.11 Unilateral primary osteoarthritis, right knee (principal)
CPT/HCPCS: 20610; 99213

== ENCOUNTER → 2025-05-05 08:43 | Outpatient (REF) | payer OTHER, SELFPAY ==
--- NOTE | 2025-05-05 08:53 | ECG_ITS ---
Test Reason : CP Blood Pressure : */* mmHG Vent. Rate : 79 BPM Atrial Rate : 79 BPM P-R Int : 128 ms QRS Dur : 80 ms QT Int : 376 ms P-R-T Axes : 61 47 43 degrees QTcB Int : 431 ms Normal sinus rhythm Normal ECG When compared with ECG of 20-Aug-2017 10:43, No significant change was found Referred By: Eugenia Whyte Electronically Signed By: LENORA HART
--- OUTSIDE RECORDS SUMMARY | 2025-05-05 10:11 | XMS_ITS | Clinical Summary ---
Author Organization [employer] Address [address] [place] [address] Care Team Providers Care Promotional Marketing Agent Name Role Phone Unavailable Primary Care Provider [...] PCV) 2020 COVID-19 Vaccine ( - season) 2025 10/18/2023, 07/14/2022, 08/28/2021, Additional history exists Influenza [...] patient's age to complete this topic Insurance [facility] STANDARD HSN [facility]
== END ==
LOC: HO.CARD 08:43
PROVIDERS: PCP Internal Medicine; Visit Provider Internal Medicine
DX: R07.9 Chest pain, unspecified (principal)
CPT/HCPCS: 93005

== ENCOUNTER → 2025-05-05 08:53 | Outpatient (BNV) | payer OTHER, SELFPAY | PROVIDERS: PCP Internal Medicine; Visit Provider Internal Medicine | DX: R07.9 Chest pain, unspecified (principal) | CPT/HCPCS: 93010 ==

== ENCOUNTER 2025-08-17 12:55 | Outpatient (REF) | payer OTHER, SELFPAY ==
--- OUTSIDE RECORDS SUMMARY | 2025-08-17 16:47 | XMS_ITS | Clinical Summary ---
Author Organization [employer] Address [address] [place] [address] Care Team Providers Care Vibrator Operator Name Role Phone Unavailable Primary Care Provider [...] patient's age to complete this topic Insurance [facility]
== END 2025-08-17 12:56 | disposition home or self-care (01) ==
LOC: HO.MAMMO 12:55
PROVIDERS: PCP Internal Medicine; Visit Provider Internal Medicine
DX: Z12.31 Encounter for screening mammogram for malignant neoplasm of breast (principal)
CPT/HCPCS: 77063; 77067

== ENCOUNTER → 2025-08-17 13:15 | Outpatient (BNV) | payer OTHER, SELFPAY | PROVIDERS: PCP Internal Medicine; Visit Provider Internal Medicine | DX: Z12.31 Encounter for screening mammogram for malignant neoplasm of breast (principal) | CPT/HCPCS: 77063; 77067 ==

== ENCOUNTER 2025-08-18 08:53 | Outpatient (AMB) | payer OTHER, SELFPAY ==
--- NOTE | 2025-08-18 08:58 | A.OFFPC_ITS ---
Vital Signs 08/18/25 09:00 Height 5 ft 1 in Weight 178 lb BMI 33.6 BP 132/80 Blood Pressure Location Lt brachial Position Sitting Intake Visit Reasons: Annual exam Intake Note: Patient here for an annual physical exam, c/o head concern Clinical Application Specialist Required: No Accompanied by: Self / Same As Patient Allergies trazodone (TRAZODONE) Allergy (Intermediate, Verified 08/18/25 09:24) TACHYCARDIA Medication List - Last Reconciled 08/18/25 by Eugenia Whyte MD atorvastatin 10 mg PO BEDTIME 90 days blood pressure monitor As directed cromolyn 4% 1 drp ophthalmic (eye) 6XD 7 days famotidine (Pepcid) 40 mg PO BEDTIME gabapentin 400 mg PO TID lidocaine HCl 2 mL PO BID linaclotide (Linzess) 290 mcg PO QAM 30 days loratadine (Allergy Relief (loratadine)) 10 mg PO DAILY 90 days losartan 50 mg PO DAILY 90 days methocarbamol 750 mg PO BID 30 days mirtazapine (Remeron) 15 mg PO BEDTIME 90 days omeprazole 40 mg PO DAILY oxybutynin chloride 5 mg PO BEDTIME PRN 30 days propranolol 20 mg PO DAILY 90 days psyllium husk (Reguloid (psyllium husk)) 0.8 grams (2 x 0.4 gram) PO BEDTIME ropinirole 0.5 mg PO BEDTIME 90 days tramadol 50 mg PO TID Tobacco use date assessed: 02/15/25 Dental Screening Dental Screen Date: 02/15/25 HPI HPI Comments History of Present Illness Details The patient is a 54 year old female presenting for a physical examination. A review of her health maintenance indicates her last tetanus vaccine was in 2018 and her last colonoscopy was in 2022. Mammogram done yesterday. The patient's chronic conditions are managed with multiple medications, including atorvastatin 10 mg for hypercholesterolemia, famotidine and omeprazole for acid reflux, gabapentin for chronic pain and fibromyalgia, and Linzess for constipation. She also takes losartan 50 mg for hypertension, methocarbamol for muscle spasms, Remeron for depression and insomnia, and oxybutynin for urinary retention. For restless leg syndrome and associated insomnia, she takes ropinirole and reports being unable to sleep without medication. She takes tramadol for pain and is followed by a human resources temp for her acid reflux, but does not see a psychiatrist. The patient reports a new issue on her scalp where a bump developed into an indentation with associated hair loss. This area is now sensitive, and touching or scratching it provokes a headache. Her past surgical history includes an endoscopy, carpal tunnel surgery, hemorrhoidectomy, colonoscopy, cervical laminectomy, and a tubal ligation. Her mother is and had a history of breast cancer, hypercholesterolemia, and hypertension. Her father is also and had no known medical conditions. The patient denies any history of smoking or alcohol use. - Immunizations: Tetanus vaccine last ad ministered in 2019. - An influenza vaccine will be administe red during this visit. - Cancer Screening: Last colonoscopy was performed in 2022. - Laboratory Monitoring: Labs will be or dered to monitor blood glucose and cholesterol levels; blood sugar was noted to be slightly elevated approximately six months ago. [facility] Medical History (Updated 08/18/25 @ 09:36 by Eugenia Whyte MD) Physical exam Odynophagia Hemorrhoids Pure hypercholesterolemia Essential hypertension Hemorrhoids with complication Carpal tunnel syndrome Cervical paraspinal muscle spasm Constipation Pre-diabetes Medication monitoring encounter Osteoarthritis of right knee Cervical radiculopathy Degeneration, intervertebral disc, cervical Cervical spondylosis Cervicalgia Irregular bleeding Migraines Class 1 obesity due to excess calories without serious comorbidity with body mass index (BMI) of 30.0 to 30.9 in adult Fibromyalgia GERD (gastroesophageal reflux disease) Surgical History Hx of endoscopy History of carpal tunnel release Hx of hemorrhoidectomy (~07/24/24) H/O colonoscopy H/O laminectomy Hx of tubal ligation History of laparoscopic cholecystectomy Family History Father No problems noted. 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: Yes Do you have trouble getting transportation to medical appointments?: No Do you have trouble paying your heating and electricity bill?: No Do you have trouble taking care of your child, family member or friend?: No Do you have trouble with day-to-day activities such as bathing, preparing meals, shopping, managing finances, etc.?: I choose not to answer this question Are you currently unemployed and looking for a job?: No Are you interested in more education?: No THRIVE Score: 0 SABI-7 AMB Questionnaire SABI-7 Date SABI - 7 assessed: 02/15/25 Source: Developed by Drs. Kishor Chavira, Janet Graff, Tae Paz and colleagues, with an educational kelley from [employer]. Review of Systems Const All systems reviewed & are unremarkable except as noted in HPI and below Card Denies chest pain at rest, Denies chest pain with activity, Denies edema, Denies irregular heart rhythm, Denies claudication, Denies dyspnea, Denies dyspnea on exertion, Denies orthopnea, Denies paroxysmal nocturnal dyspnea and Denies slow heart rate Resp Denies cough, Denies dyspnea and Denies dyspnea on exertion GI Denies abdominal pain, Denies change in bowel habits, Denies excessive flatus, Denies nausea and Denies vomiting Physical exam (Primary Care) Vital Signs: Last Vital Signs BP 132/80 08/18/25 09:00 BMI result Body Mass Index 33.6 BMI Assessment/Plan discussion: High BMI High, discussed plan: lifestyle, weight reduction, dietary and physical activity Tobacco/Smoking Status: Tobacco use Status Tobacco use date assessed 02/15/25 08/18/25 08:58 Patient Tobacco Use Status Never used Tobacco 08/18/25 08:58 e-Cigarette/Vaping Use Never Used 08/18/25 08:58 Thrive Assessment: Date of Thrive Assessment Date Thrive assessed 02/15/25 08/18/25 08:58 [facility] Head: Yes normal to inspection, Yes normocephalic and Yes atraumatic Ears: external ears normal Eyes General: appearance normal, both eyes and all related structures Eyelids: Yes eyelids normal Conjunctivae: conjunctivae normal Neck Neck: Yes normal visual inspection and Yes supple Resp Effort & Inspection: normal respiratory effort Auscultation: clear to auscultation bilaterally Cardio Jugular venous distension: no JVD Rate: regular rate Rhythm: regular rhythm Heart sounds: S1 normal heart sound present and S2 normal heart sound present GI Inspection: Yes normal to inspection Palpation (GI): Soft to palpation and nontender Auscultation: normal bowel sounds Skin General skin exam: no rashes or lesions noted Neuro General: no focal motor deficits Extrem General: Yes full ROM Psych Appearance: grossly normal Office Procedures Flu Questionnaire Does the patient have a severe egg allergy?: No Does the patient have severe life threatening allergies?: No Does the patient have a fever or illness today?: No Has the patient ever had Guillain-Haskell Syndrome?: No Has the patient ever had any past reaction to a flu shot?: No Immunizations Fluarix [id number] (PF) 45 mcg (15 mcg x 3)/0.5 mL IM syringe Performing Provider: Eugenia Whyte MD [facility] Administered by: VANESSA Simmons on 08/18/25 09:38 Dose Route Admin Location Dispensed Lot Number Expiration Date [employer] Lock[employer]ch 0.5 mL IM Right Deltoid 0.5 mL [id number] 02/15/26 94914-193-97 [facility] V[facility] Given Date VIS Provided VIS Publication Date 08/18/25 Single Vaccine 24 Eligibility Eligibility Date Funding Source Not [facility] Eligible 08/18/25 Private Coding Level of Care Code Est Pt Level 3 (94943) Est Pt Prev Care 40-64y(28438) Diagnoses Physical exam Z00.00 Skin lesion L98.9 Hair loss L65.9 Mild recurrent major depression F33.0 Time Spent (min) 32 Assessment & Plan Assessment & Plan (1) Physical exam: Code(s): Z00.00 - Encounter for general adult medical examination without abnormal findings Category: Medical (2) Skin lesion: Code(s): L98.9 - Disorder of the skin and subcutaneous tissue, unspecified Category: Medical (3) Hair loss: Code(s): L65.9 - Nonscarring hair loss, unspecified Category: Medical (4) Mild recurrent major depression: Code(s): F33.0 - Major depressive disorder, recurrent, mild Category: Medical Plan Plan 1. Annual Physical Examination The patient's health maintenance was reviewed, noting her last tetanus vaccine was in 2018 and her last colonoscopy was in 2022. An order will be placed for labs to check blood glucose and cholesterol levels, as her glucose was previously elevated. The patient will receive an influenza vaccine during the visit. 2. Scalp Lesion The patient presents with a scalp lesion characterized by localized hair loss and tenderness, which elicits a headache upon palpation. A referral to dermatology will be placed for further evaluation, though the patient was reassured it is not an urgent matter. 3. Chronic Medication Management The patient's current medications for hypertension, hypercholesterolemia, GERD, fibromyalgia, chronic pain, constipation, muscle spasms, depression, insomnia, restless leg syndrome, and urinary retention were reviewed. The current regimen will be continued. Orders: Orders Lipid Panel Today E78.5 - Hyperlipidemia, unspecified Vitamin D 25-OH Total Today E55.9 - Vitamin D deficiency, unspecified Comprehensive [place]. Panel Fast Today Z00.00 - Encounter for general adult medical examination without abnormal findings Influenza [id number] Immunization Today Z23 - Encounter for immunization Referrals Dermatology Referral L65.9 - Nonscarring hair loss, unspecified, L98.9 - Disorder of the skin and subcutaneous tissue, unspecified Medications: Refilled cromolyn 4% 1 drp ophthalmic (eye) 6XD 10 mL 1RF 7 days
[2025-08-18 09:00] VITALS: BP 132/80; BMI 33.6
--- OUTSIDE RECORDS SUMMARY | 2025-08-18 09:00 | XMS_ITS | Clinical Summary ---
Author Organization [employer] Address [address] [place] [address] Care Team Providers Care Cut File Clerk Name Role Phone Unavailable Primary Care Provider [...] this topic Meningococcal Vaccine Aged Out No tushra bobby eligible based on patient's age to complete this topic RSV under 20 months Aged Out No longe r eligible based on patient's age to complete this topic Rotavirus Vaccines Aged Out No longer eligible based on patient's age to complete this topic Insurance [facility]
== END 2025-08-18 09:40 | disposition home or self-care (01) ==
LOC: HO.HMCH 08:54
PROVIDERS: PCP Internal Medicine; Visit Provider Internal Medicine
DX: Z00.00 Encounter for general adult medical examination without abnormal findings (principal); L98.9 Disorder of the skin and subcutaneous tissue, unspecified; L65.9 Nonscarring hair loss, unspecified; F33.0 Major depressive disorder, recurrent, mild; Z23 Encounter for immunization

== ENCOUNTER → 2025-08-18 08:53 | Outpatient (BNVA) | payer OTHER, SELFPAY | PROVIDERS: PCP Internal Medicine; Visit Provider Internal Medicine | DX: Z00.00 Encounter for general adult medical examination without abnormal findings (principal); E78.00 Pure hypercholesterolemia, unspecified; I10 Essential (primary) hypertension; L98.9 Disorder of the skin and subcutaneous tissue, unspecified; G47.00 Insomnia, unspecified; L65.9 Nonscarring hair loss, unspecified; K21.9 Gastro-esophageal reflux disease without esophagitis; G25.81 Restless legs syndrome; F33.0 Major depressive disorder, recurrent, mild; Z23 Encounter for immunization | CPT/HCPCS: 90471; 90656; 99396 ==